=== PATIENT | male | born 1955 | race Caucasian/White ===

== ENCOUNTER → 2024-05-15 | Outpatient (CLI) | payer MEDICARE, SELFPAY ==
[2024-05-15 15:31] LABS: PSA,Total - Annual Screen 0.46 ng/mL (0.00-4.00)
== END | disposition home or self-care (01) ==
LOC: BFHLAB 11:34
PROVIDERS: PCP Family Medicine; Referring Provider Family Medicine; Visit Provider Family Medicine
DX: Z12.5 Encounter for screening for malignant neoplasm of prostate (principal)
CPT/HCPCS: 36415; 84153; G0103

== ENCOUNTER 2025-04-28 08:29 | Emergency (ER) | payer MEDICARE, OTHER, SELFPAY ==
[2025-04-28 08:30] VITALS: BP 177/89; PULSE 69; RESP 16; TEMP 36.1; O2SAT 100; BMI 32.5
--- NOTE | 2025-04-28 08:57 | ED.VIS.LOWEX ---
HPI History of Present Illness Chief Complaint: Lower Extremity Injury Informant: patient and spouse/S.O. Narrative Narrative: 69-year-old male presenting to the emergency room with pain swelling and redness of the right foot. Patient states he has a history of gout but typically in his toes. On he began to have pain with the ball of his right foot and noticed some swelling and Tuesday over the dorsum of the foot. He states that it felt warm had some mild redness. On Tuesday evening he began to take Aleve and he notes the swelling and redness is better. The skin sensitivity is also improved. He has a history of having had a TAVR and is on Eliquis 5 mg twice daily. His had concerns about DVT. He denies any calf pain or leg swelling. He denies any fever. He states that he has been diligent with his Eliquis twice daily not missing doses. He does see a risk management specialist Dr. Lemus. He has utilized Medrol in the past with good relief of his gout symptoms. He typically gets gout about twice a year. [facility] Medical History (Updated 04/28/25 @ 08:[address] Jeff Mcnally DO) Hypertension Anticoagulated Home Medications ?Medication ?Instructions ?Recorded ?Last Taken ?Type methylprednisolone 4 mg tablets in See Rx Instructions PO .COMPLEX 04/28/25 Unknown Rx a dose pack (Medrol (Chong)) #21 tabs Allergy/AdvReac Type Severity Reaction Status Date / Time Penicillins (PCN) Allergy Intermediate Rash Verified 04/28/25 08:30 Sulfa (Sulfonamide Allergy Mild Nausea Verified 04/28/25 08:30 Antibiotics) Surgical History (Updated 04/28/25 @ 08:[address] Jeff Mcnally DO) S/P TAVR (transcatheter aortic valve replacement) ROS ROS ED Constitutional Constitutional ED: Denies chills or weight loss Eyes Eyes: Denies change in vision or diplopia ENT ENT ED: Denies ear pain, rhinorrhea or sore throat Cardiovascular Cardiovascular: Denies chest pain, orthopnea, palpitations or racing heartbeat Respiratory/Chest Respiratory/Chest: Denies cough, dyspnea or orthopnea Gastrointestinal Gastrointestinal: Denies abdominal pain, diarrhea, nausea or vomiting Genitourinary Genitourinary ED: Denies dysuria, hematuria or urinary frequency Musculoskeletal Musculoskeletal: Reports other Details: See history of present illness ; Denies arthralgias or myalgias Integumentary Denies abscess or rash Neurologic Neurologic: Denies headache(s) or weakness Psychiatric Psychiatric: Denies anxiety, depression, suicidal ideation or suicidal thoughts Endocrine Endocrinology: Denies polydipsia, polyphagia or polyuria Allergic/Immunologic Allergic/Immunologic ED: Denies mouth swelling, tongue swelling or urticaria EXAM Physical Exam Const Vital Signs: 04/28/25 08:30 Temperature 96.9 F L Temperature Source Temporal Pulse Rate 69 Respiratory Rate 16 Blood Pressure 177/89 H Blood Pressure Mean 118 Pulse Ox 100 Oxygen Delivery Method Room Air Positive well nourished and well developed General Appearance ED: well developed and NAD HEENT Reports normocephalic, head/scalp atraumatic and moist mucous membranes Eyes PERRL and EOMs intact bilaterally Neck no lymphadenopathy, supple and no JVD Resp normal respiratory effort and clear to auscultation bilaterally Cardio regular rate, regular rhythm and no murmurs GI normal to inspection, nondistended, normoactive bowel sounds and non-tender Palpation: soft Back/Spine no CVA tenderness and normal ROM Extremity Extremity Narrative: There is some mild swelling, mild warmth, and faint erythema starting at the base of the second/third toe extending laterally into the midfoot. There is no calf tenderness. No significant foot tenderness. There are no distended veins or palpable cords comparing side to side. The ankle is not swollen. Full range of motion. I do not appreciate any breaks in the skin either on the surface of the foot or in the toe webspaces. No lymphangitic streaking General Extremety ED: Negative for edema General Extremity: Negative for edema Neuro oriented x3 and CN's II-XII intact bilaterally Sensorium / Orientation: alert Motor Exam: strength 5/5 throughout Psych mental status grossly normal Mood & Affect: Negative for depressed or tearful Skin no rashes or lesions noted and no wounds MDM MDM MDM Narrative Medical decision making narrative: Differential diagnosis would include but not limited to gout pseudogout cellulitis trauma (fracture sprain) DVT superficial thrombophlebitis Based on the history and physical I think this is most likely gout. I doubt DVT as he has no symptoms at the ankle or above. He is fully anticoagulated on Eliquis. We will do Medrol to see if this fully relieves his symptoms. If he has new or concerning symptoms would have him return to emergency. He may follow-up with Dr. Lemus if needed. Patient and his are comfortable with this plan. History & Record Review Discussion w/independent historian: Patient and Significant other Discharge Plan Triage Chief Complaint: Lower Extremity Injury ED Provider: Jeff Mcnally Dx/Rx/DC Orders Clinical Impression: Gout of right foot, Acute pain of right foot Instructions: ED Gout Prescriptions: New methylprednisolone [Medrol (Chong)] 4 mg tablets,dose pack See Rx Instructions .ROUTE .COMPLEX Qty: 21 0RF Rx Instructions: orally per package directions Primary Care Provider: Ze Beverly Referrals: Ze Beverly DO [Primary Care Provider, Family Practice] Activity Restrictions/Additional Instructions: Follow-up with Dr. Lemus as needed. Return if worsening or concerns Print Language: Bangladeshi Disposition Disposition: Home, Self Care
--- OUTSIDE RECORDS SUMMARY | 2025-04-28 09:05 | XMS RPT_ITS | CCD ---
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 Disc degeneration, lumbar GERD (gastroesophageal reflux disease) Heart murmur 5 years old Herniation of lumbar intervertebral disc with radiculopathy 2019 L5-S1 (right side). Comprehensive pain management. Hyperlipidemia Hypertension 2020 Skin cancer 2016 Social History Tobacco Use Smoking status: Never Smokeless tobacco: Never Substance Use Topics Alcohol use: Yes Alcohol/week: 3.0 standard drinks of alcohol Types: 3 Glasses of wine per week Comment: per week Past Surgical History: Procedure Laterality Date AORTIC VALVE REPLACEMENT 05/10/2022 CARDIAC CATHETERIZATION N/A 05/10/2022 Performed by Guera Gonzalez MD at [facility] OR CARDIAC PROCEDURE Right 08/11/2020 COLONOSCOPY 12/15/2017 CT CORONARY CTA WITH PROV FFR-CT 04/20/2022 CT ANGIOGRAM TAVR 04/20/2022 [facility] [address] IMAGING Family History Problem Relation Name Age of Onset Other (84225) Father Nilesh Rapid HR Diabetes type II Father Nilesh Objective Vitals: 04/11/24 1437 04/11/24 1447 BP: (S) (!) 146/80 128/68 BP Location: Left arm Left arm Patient Position: Sitting Sitting BP Cuff Size: Adult Pulse: 80 Weight: 207 lb (93.9 kg) Height: 5' 8 (1.727 m) Physical Exam Constitutional: General: He is not in acute distress. Appearance: He is not diaphoretic. HENT: Head: Normocephalic. Nose: Nose normal. Mouth/Throat: Mouth: Mucous membranes are moist. Pharynx: No oropharyngeal exudate. Eyes: General: No scleral icterus. Right eye: No discharge. Left eye: No discharge. Neck: Thyroid: No thyromegaly. Vascular: No carotid bruit or JVD. Cardiovascular: Rate and R (more content not included)... Normal [facility] 36on 04-04-2024 36 Spoke with patient and explained it is a doctors hospital doctor. And they can see our system Normal [facility] 36 Name of caller: Venancio Contact phone number: [phone] Relationship to Patient: patient Provider: Dr. Dale Practice: [facility] [place] Chief Complaint/Reason for Call: Patient states that he is scheduled for an annual visit with Dr. Gonzalez on 04/11/24 and he would like to have a copy of all of the testing that has been done from the last three months to a year sent to the doctor's office and also uploaded to his SWEEPiO. Please advise. Best time of day caller can be reached: Any Patient advised that office/PCP has 24-48 business hours to return their call: No Normal [facility] Comprehensive metabolic 1998 panelon 04-08-2023 Albumin [Mass/Vol] 4.5 g/dL 3.5 - 5.0 g/dL [facility] ALP [Catalytic activity/Vol] 72 U/L 38 - 126 U/L [facility] ALT [Catalytic activity/Vol] 26 U/L 0 - 49 U/L [facility] Anion gap [Moles/Vol] 11 mmol/L 3 - 13 mmol/L [facility] AST [Catalytic activity/Vol] 27 U/L 15 - 46 U/L [facility] Bilirubin [Mass/Vol] 1.0 mg/dL 0.2 - 1 .3 mg/dL [facility] Calcium [Mass/Vol] 9.2 mg/dL 8.4 - 10. 4 mg/dL [facility] Chloride [Moles/Vol] 104 mmol/L 98 - 10 7 mmol/L [facility] CO2 [Moles/Vol] 23 mmol/L 22 - 30 mmol/L [facility] Creatinine [Mass/Vol] 0.65 mg/dL Low 0.66 - 1.25 mg/dL [facility] GFR/1.73 sq M.predicted MDRD (S/P/Bld) [Vol rate/Area] - PINF [facility] Comment on above: Calculation based on the Chronic Kidney Disease Epidemiology Collaboration (CKD-EPI) equation refit without adjustment for race Glucose [Mass/Vol] 105 mg/dL High 70 - 100 mg/dL [facility] Potassium [Moles/Vol] 4.3 mmol/L 3.5 - 5.1 mmol/L [facility] Protein [Mass/Vol] 7.4 g/dL 6.3 - 8.2 g/dL [facility] Sodium [Moles/Vol] 137 mmol/L 135 - 145 mmol/L [facility] Urea nitrogen [Mass/Vol] 14 mg/dL 9 - 20 mg/d L [facility] Lipid 1996 panelon 3 Cholesterol [Mass/Vol] 180 mg/dL NINF - 200 mg/dL [facility] Cholesterol in HDL [Mass/Vol] 57 mg/dL 40 - 60 mg/dL [facility] Cholesterol in LDL [Mass/Vol] 109 mg/dL High 0 - <100 [facility] [place] Cholesterol.total/Choles terol in HDL [Mass ratio] 3 {ratio} [facility] Comment on above: Ref Range: < 3 Low Risk for CHD 3-6 Mod Risk for CHD > 6 High Risk for CHD Triglyceride [Mass/Vol] 72 mg/dL NINF - 150 mg/dL [facility] No Panel Informationon 04-08 Interpretation and review of laboratory results Abnormal [facility] US Heart TransthoracicOrdere d By: Elias Balderas on 03-31-2023 AV Area by Peak Velocity 1.6 cm2 [facility] Work Phone: AV Area by VTI 1.7 cm2 [facility] Work Phone: AV AT 87.0 ms [facility] Work Phone: AV Mean Gradient 9 mmHg [facility] Work Phone: AV Mean Velocity 1.4 m/s [facility] Work Phone: [phone] AV Peak Gradient 19 mmHg [facility] Work Phone: [phone] AV Peak Velocity 2.2 m/s [facility] Work Phone: AV Velocity Ratio 0.45 [facility] Work Phone: AV VTI 45.3 cm [facility] Work Phone: CYNTHIA/BSA Peak Velocity 0.8 cm2/m2 [facility] Work Phone: CYNTHIA/BSA VTI 0.8 cm2/m2 [facility] Work Phone: E/E' Lateral 11.67 [facility] Work Phone: E/E' Ratio (Averaged) 11.67 [facility] [place] Work Phone: E/E' Septal 11.67 [facility] Work Phone: EF BP 65 % 55 - 100 % [facility] Work Phone: Est. RA Pressure 3 mmHg [facility] Work Phone: Fractional Shortening 2D 32 % 28 - 44 % [facility] Work Phone: Interpretation and review of laboratory results Abnormal [facility] Work Phone: IVSd 1.4 cm Abnormal 0.6 - 1.0 cm [facility] Work Phone: LA Diameter 3.7 cm [facility] Work Phone: LA Size Index 1.77 cm/m2 [facility] Work Phone: LA Volume 2C 66 mL Abnormal 18 - 58 mL [facility] Work Phone: LA Volume 4C 62 mL Abnormal 18 - 58 mL [facility] Work Phone: LA Volume A/L 69 mL [facility] Work Phone: LA Volume Index 2C 32 mL/m2 16 - 34 mL/m2 [facility] Work Phone: LA Volume Index 4C 30 mL/m2 16 - 34 mL/m2 [facility] Work Phone: LA Volume Index A/L 33 mL/m2 16 - 34 mL/m2 [facility] [place] Work Phone: LV E' Lateral Velocity 6 cm/s [facility] Work Phone: LV E' Septal Velocity 6 cm/s [facility] Work Phone: LV EDV A2C 103 mL [facility] Work Phone: LV EDV A4C 190 mL [facility] Work Phone: LV EDV BP 142 mL 67 - 155 mL [facility] Work Phone: LV EDV Index A2C 49 mL/m2 [facility] Work Phone: LV EDV Index A4C 91 mL/m2 [facility] Work Phone: LV EDV Index BP 68 mL/m2 [facility] Work Phone: LV Ejection Fraction A2C 65 % [facility] Work Phone: LV Ejection Fraction A4C 67 % [facility] Work Phone: LV ESV A2C 37 mL [facility] Work Phone: LV ESV A4C 63 mL [facility] Work Phone: LV ESV BP 50 mL 22 - 58 mL [facility] Work Phone: LV ESV Index A2C 18 mL/m2 [facility] Work Phone: LV ESV Index A4C 30 mL/m2 [facility] Work Phone: LV ESV Index BP 24 mL/m2 [facility] Work Phone: LV Mass 2D 251.4 g Abnormal 88 - 224 g [facility] Work Phone: LV Mass 2D Index 120.3 g/m2 Abnormal 49 - 115 g/m2 [facility] Work Phone: LV RWT Ratio 0.55 [facility] Work Phone: LVIDd 4.7 cm 4.2 - 5.9 cm [facility] Work Phone: LVIDd Index 2.25 cm/m2 [facility] Work Phone: LVIDs 3.2 cm [facility] Work Phone: LVIDs Index 1.53 cm/m2 [facility] Work Phone: LVOT Area 3.5 cm2 [facility] Work Phone: LVOT Cardiac Output 4.5 liter/minute [facility] Work Phone: LVOT Diameter [facility].[address] [facility] Work Phone: LVOT Mean Gradient 2 mmHg [facility] Work Phone: LVOT Peak Gradient 4 mmHg [facility] Work Phone: LVOT Peak Velocity 1.0 m/s [facility] Work Phone: LVOT Stroke Volume Index 37.4 mL/m2 [facility] Work Phone: LVOT SV 78.2 ml [facility] Work Phone: LVOT VTI 22.6 cm [facility] Work Phone: LVOT:AV VTI Index 0.50 [facility] Work Phone: LVPWd 1.3 cm Abnormal 0.6 - 1.0 cm [facility] Work Phone: MV A Velocity 0.74 m/s [facility] Work Phone: MV E Velocity 0.70 m/s [facility] Work Phone: MV E Wave Deceleration Time 334.0 ms [facility] Work Phone: MV E/A 0.95 [facility] Work Phone: RV Free Wall Peak S' 13 cm/s [facility] Work Phone: RVSP 26 mmHg [facility] Work Phone: TAPSE 2.4 cm 1.7 cm [facility] Work Phone: TR Max Velocity 2.40 m/s [facility] Work Phone: TR Peak Gradient 23 mmHg [facility] Work Phone: [facility] Work Phone: Heart Transthoracicon Left Ventricle: Left ventricle size is normal. Mildly increased wall thickness. Normal left ventricular systolic function. EF by 2D Simpsons Biplane is 65%. Normal wall motion. Right Ventricle: Not well visualized. Right ventricle size is normal. Normal systolic function. Aortic Valve: Not well visualized. Swann Tiffanie 3 Ultra bioprosthetic aortic valve with a size of 26 mm. AV mean gradient is 9 mmHg. No cusp calcification. No regurgitation. No paravalvular regurgitation. No stenosis. Normal prosthetic gradient. AV mean gradient is 9 mmHg. AV peak velocity is 2.2 m/s. AV AT is 87.0 ms. LVOT:AV VTI Index is 0.50. AV area by continuity VTI is 1.7 cm2. Mitral Valve: Trace regurgitation. Tricuspid Valve: Normal RVSP. Est RA pressure is 3 mmHg. RVSP is 26 mmHg. Left Ventricle Left ventricle size is normal. Mildly increased wall thickness. Normal left ventricular systolic function. EF by 2D Simpsons Biplane is 65%. Normal wall motion. Normal diastolic function. Right Ventricle Not well visualized. Right ventricle size is normal. Normal systolic function. Left Atrium Left atrium size is normal. Right Atrium Right atrium size is normal. IVC/SVC IVC diameter is normal and decreases greater than 50% during inspiration; therefore the estimated right atrial pressure is normal (~3 mmHg). Mitral Valve Valve structure is normal. Trace regurgitation. No stenosis noted. Tricuspid Valve Valve structure is normal. Trace regurgitation. Normal RVSP. Est RA pressure is 3 mmHg. RVSP is 26 mmHg. Aortic Valve Not well visualized. Swann Tiffanie 3 Ultra bioprosthetic aortic valve with a size of 26 mm. AV mean gradient is 9 mmHg. No cusp calcification. No regurgitation. No paravalvular regurgitation. No stenosis. Normal prosthetic gradient. AV mean gradient is 9 mmHg. AV peak velocity is 2.2 m/s. AV AT is 87.0 ms. LVOT:AV VTI Index is 0.50. AV area by continuity VTI is 1.7 cm2. Pulmonic Valve Valve structure is normal. No regurgitation. Ascending Aorta Not assessed due to poor image quality. Normal sized sinuses of Valsalva. Pericardium No pericardial effusion. Septum No interatrial shunt visualized on color Doppler. Study Details Image quality: adequate. Heart rate: 61 bpm. Blood pressure: 141/74 mmHg. Cardiac history: prosthetic valve. No contrast was given. CV CPACS Sleep study with pap titrati onon 02-15-2023 [facility] No Panel Informationon 10-05 [facility] CNOVon 07-15-2022 CNOV Office Visit ([email or web address]) VENANCIO GONSALVES ([id number]) 1955 M Date Time Provider Department 07/15/22 10:15 AM LAURI LEMUS [id number] During your visit today, we recorded the following information about you: Respiration Weight Height 18/minute 89.8 kg 1.727 m Felicia Johnson MA 07/16/2022 7:24 AM Signed REVIEW OF SYSTEMS: GENERAL: Well developed, well nourished. No acute distress PAIN: Pain 09/06 CARDIOVASCULAR: Negative for chest pain, leg swelling and palpations. MSK: Negative for joint swelling SKIN: Negative for lesions, rash, itching, metal sensitivity NEURO: Negative for seizure, trauma, numbness/tingling of extremities. ENDOCRINE: Negative for diabetic associated symptoms HEMATOLOGY: Negative for excessive bleeding, clots, bleeding disorders. YENI Medley DPM 07/16/2022 7:24 AM Signed Chief Complaint: b/l toe pain HPI: This 67 year old male with PMH indicated below presents for follow up of b/l toe pain. Patient was last seen with possible acute gout flare up of left big toe and third toe. Since last visit, he has completed the prednisone course prescribed by his PCP. He was applying voltaren gel as recommended but has discontinued its use as he did not notice a difference with its use. He is now complaining of a flare up of his right 2nd toe. He describes these flare ups and being painful with associated swelling and redness without inciting event or injury. Has noticed the swelling/redness worsen with hiking/walking. Relates pain to bilateral toes has improved, but still complains of soreness localized to the 2nd toe. Denies having known personal hx of gout but father had gout. Denies other pedal complaints. PCP: Azael Sanders MD: PAST MEDICAL HISTORY Diagnosis Date Aortic stenosis Bilateral foot pain left great toe, right 2nd toe Disc degeneration, lumbar Diverticulosis GERD (gastroesophageal reflux disease) Skin cancer 2017 : Current Outpatient Medications Medication Sig apixaban (ELIQUIS) 5 mg tab(s) methylPREDNISolone (MEDROL DOSE-PACK) 4 mg Dose-Pack Take by mouth. As Instructed per package amLODIPine (NORVASC) 5 mg tablet metoprolol succinate ER (TOPROL XL) 50 mg [address] (PROTONIX) 40 mg tablet TAKE 1 TABLET BY MOUTH TWICE A DAY BEFORE MEALS atorvastatin (LIPITOR) 40 mg tablet Take 40 mg by mouth once daily. No current facility-administere d medications for this visit. : ALLERGIES Allergen Reactions Sulfa (Sulfonamide * GI Upset Nausea. Penicillins Rash : PAST SURGICAL HISTORY Procedure Laterality Date COLONOSCOPY 12/15/2017 Diverticulosis EGD 09/17/2020 Fundic gland polyps, otherwise normal FAMILY HISTORY Problem Relation Age of Onset Colon Cancer No Family History : Social History Tobacco Use Smoking status: Never Smokeless tobacco: Never Vaping Use Vaping Use: Never used Substance Use Topics Alcohol use: Yes Comment: occ. Drug use: No REVIEW OF SYSTEMS See tech note MSK: + as noted in HPI. Physical Examination: On General Observation: Patient is a pleasant, cooperative, well developed 67 year old adult male. The patient is alert and oriented to time, place and person. Patient has normal affect and mood. There were no vitals taken for this visit. Examination of both lower extremities: Satisfactory alignment. No gross deformity is noted. Normal alignment in stance. Peripheral pulses are palpable. Capillary refill time is less than 3 seconds to all toes. The skin is warm and dry. No rashes or lesions. There are no open wounds or signs of infection, There is no lymphadenopathy noted. Peripheral sensation and reflexes are intact, bilateral and symmetrical. Motor strength is 5/5 of all groups. Normal range of motion, stability and coordination of both lower extremities. + Edema and mild erythema to right 2nd distal digit with associated mallet toe deformity. Mild edema and resolved erythema to the left 3rd distal digit with associated mallet toe deformity. + Pain to palpation of distal right 2nd toe and with DIPJ ROM. Radiographs: 3 views AP, MO, Lat Right Foot (06/10/22). Radiographic evaluation: No obvious fracture or dislocation is noted. No acute osseous changes. No osteolytic or osteoblastic lesions appreciated. No soft tissue gas. No discernible mass noted. Joint spaces are well maintained. Bone density appear typical for age of patient. 3 views AP, MO, Lat Left Foot (06/10/22). Radiographic evaluation: Degenerative changes to the 3rd DIPJ with christiano-articular spurring of the base of the distal phalanx relative to the middle phalanx. No obvious fracture or dislocation is noted. No acute osseous changes. No osteolytic or osteoblastic lesions appreciated. No soft tissue gas. No discernible mass noted. Bone density appear typical for age of patient. A (more content not included)... Normal [facility] US Heart TransthoracicOrdere d By: Sabrina Nichole on 06-17-2022 Aortic Arch 3.1 cm [facility] Work Phone: Aortic Sinus Valsalva 3.0 cm [facility] Work Phone: Aortic Sinus Valsalva Index 1.46 cm/m2 [facility] Work Phone: AR Max Velocity PISA 2.5 m/s [facility] Work Phone: AR PHT 761.9 ms [facility] Work Phone: AV Area by Peak Velocity 1.0 cm2 [facility] Work Phone: AV Area by VTI 1.[address] [facility] Work Phone: AV AT 64.0 ms [facility] Work Phone: AV Mean Gradient 12 mmHg [facility] Work Phone: AV Mean Velocity 2.3 m/s [facility] Work Phone: AV Peak Gradient 25 mmHg [facility] Work Phone: AV Peak Velocity 2.5 m/s [facility] Work Phone: AV Velocity Ratio 0.40 [facility] Work Phone: AV VTI 50.0 cm [facility] Work Phone: CYNTHIA/BSA Peak Velocity 0.5 cm2/m2 [facility] Work Phone: CYNTHIA/BSA VTI 0.9 cm2/m2 [facility] Work Phone: E/E' Lateral 10.75 [facility] Work Phone: E/E' Ratio (Averaged) 12.54 [facility] Work Phone: E/E' Septal 14.33 [facility] Work Phone: EF BP 70 % 55 - 100 % [facility] Work Phone: Fractional Shortening 2D 30 % 28 - 44 % [facility] Work Phone: Interpretation and review of laboratory results Abnormal [facility] Work Phone: IVC Diameter 2.0 cm [facility] Work Phone: IVSd 1.5 cm Abnormal 0.6 - 1.0 cm [facility] Work Phone: LA Diameter 3.9 cm [facility] Work Phone: LA Size Index 1.89 cm/m2 [facility] [employer] [employer] Work Phone: LA Volume 2C 71 mL Abnormal 18 - 58 mL [facility] Work Phone: LA Volume 4C 82 mL Abnormal 18 - 58 mL [facility] Work Phone: LA Volume A/L 83 mL [facility] [employer] Work Phone: LA Volume Index 2C 34 mL/m2 16 - 34 mL/m2 [facility] Work Phone: LA Volume Index 4C 40 mL/m2 Abnormal 16 - 34 mL/m2 [facility] Work Phone: LA Volume Index A/L 40 mL/m2 16 - 34 mL/m2 [facility] Work Phone: LV E' Lateral Velocity 8 cm/s [facility] Work Phone: LV E' Septal Velocity 6 cm/s [facility] Work Phone: LV EDV A2C 67 mL [facility] Work Phone: LV EDV A4C 100 mL [facility] Work Phone: LV EDV BP 82 mL 67 - 155 mL [facility] Work Phone: LV EDV Index A2C 33 mL/m2 [facility] Work Phone: LV EDV Index A4C 49 mL/m2 [facility] Work Phone: LV EDV Index BP 40 mL/m2 [facility] Work Phone: LV Ejection Fraction A2C 72 % [facility] Work Phone: LV Ejection Fraction A4C 69 % [facility] Work Phone: LV ESV A2C 19 mL [facility] Work Phone: LV ESV A4C 31 mL [facility] Work Phone: LV ESV BP 25 mL 22 - 58 mL [facility] Work Phone: LV ESV Index A2C 9 mL/m2 [facility] Work Phone: [phone] LV ESV Index A4C 15 mL/m2 [facility] Work Phone: LV ESV Index BP 12 mL/m2 [facility] Work Phone: LV Mass 2D 240.3 g Abnormal 88 - 224 g [facility] Work Phone: LV Mass 2D Index 116.6 g/m2 Abnormal 49 - 115 g/m2 [facility] Work Phone: LV RWT Ratio 0.59 [facility] Work Phone: LVIDd 4.4 cm 4.2 - 5.9 cm [facility] Work Phone: LVIDd Index 2.14 cm/m2 [facility] Work Phone: [phone] LVIDs 3.1 cm [facility] Work Phone: LVIDs Index 1.50 cm/m2 [facility] Work Phone: LVOT Area 3.8 cm2 [facility] Work Phone: LVOT Cardiac Output 4.1 liter/minute [facility] Work Phone: LVOT Diameter 2.2 cm [facility] Work Phone: LVOT Mean Gradient 3 mmHg [facility] Work Phone: LVOT Peak Gradient 4 mmHg [facility] Work Phone: LVOT Peak Velocity 1.0 m/s [facility] Work Phone: LVOT Stroke Volume Index 45.6 mL/m2 [facility] Work Phone: [phone] LVOT SV 93.8 ml [facility] Work Phone: LVOT VTI 24.7 cm [facility] Work Phone: LVOT:AV VTI Index 0.49 [facility] Work Phone: LVPWd 1.3 cm Abnormal 0.6 - 1.0 cm [facility] Work Phone: MV A Velocity 0.93 m/s [facility] [place] [employer] Work Phone: MV E Velocity 0.86 m/s [facility] [place] [employer] Work Phone: MV E Wave Deceleration Time 323.6 ms [facility] Work Phone: [phone] MV E/A 0.92 [facility] Work Phone: Pulmonary Artery EDP [address] [facility] Work Phone: RV Basal Dimension 2.8 cm [facility] Work Phone: RV Free Wall Peak S' 11 cm/s [facility] Work Phone: RV Mid Dimension 2.4 cm [facility] Work Phone: TAPSE 1.9 cm 1.7 cm [facility] Work Phone: TR Max Velocity 2.55 m/s [facility] Work Phone: TR Peak Gradient 26 mmHg [facility] Work Phone: [facility] Work Phone: Heart Transthoracicon Left Ventricle: Left ventricle size is normal. Moderately increased wall thickness. Normal left ventricular systolic function. Normal wall motion. Normal diastolic function. Right Ventricle: Right ventricle size is normal. Normal systolic function. Aortic Valve: Swann Tiffanie 3 bioprosthetic aortic valve with a size of 26 mm. AV mean gradient is 12 mmHg. Trace paravalvular regurgitation. No stenosis. AV mean gradient is 12 mmHg. AV peak gradient is 25 mmHg. AV peak velocity is 2.5 m/s. LVOT:AV VTI Index is 0.49. AV area by continuity VTI is 1.8 cm2. Tricuspid Valve: Valve structure is normal. Mildly thickened leaflets. Left Ventricle Left ventricle size is normal. Moderately increased wall thickness. Normal left ventricular systolic function. Normal wall motion. Normal diastolic function. Right Ventricle Right ventricle size is normal. Normal systolic function. Left Atrium Left atrium size is mildly increased (LA volume index 35-41 mL/m2). Right Atrium Right atrium size is normal. IVC/SVC IVC diameter is normal and decreases greater than 50% during inspiration; therefore the estimated right atrial pressure is normal (~3 mmHg). Mitral Valve Valve structure is normal. No regurgitation. No stenosis noted. Tricuspid Valve Valve structure is normal. Mildly thickened leaflets. Trace regurgitation. Aortic Valve Swann Tiffanie 3 bioprosthetic aortic valve with a size of 26 mm. AV mean gradient is 12 mmHg. Trace paravalvular regurgitation. No stenosis. AV mean gradient is 12 mmHg. AV peak gradient is 25 mmHg. AV peak velocity is 2.5 m/s. LVOT:AV VTI Index is 0.49. AV area by continuity VTI is 1.8 cm2. Pulmonic Valve Valve structure is normal. Mild (1+) regurgitation. Ascending Aorta Not well visualized. Normal sized sinuses of Valsalva and ascending aorta. Pericardium No pericardial effusion. Septum No interatrial shunt visualized on color Doppler. Hypermobile interatrial septum. Study Details Image quality: adequate. Heart rate: 61 bpm. Blood pressure: 144/88 mmHg. No contrast was given. Comparison Study There is a prior study available for comparison. Prior study date: 05/10/2022. EF 63%. History of TAVR, Vinnie Tiffanie S3 26 mm 05-10-22. CV CPACS CNOVon 06-10-2022 CNOV Office Visit (AGHWW1) VENANCIO GONSALVES ([id number]) 1955 M Date Time Provider Department 06/10/22 9:00 AM [facility] During your visit today, we recorded the following information about you: Respiration Weight Height 20/minute 89.8 kg 1.727 m Lauri Lemus DPM 06/11/2022 11:16 AM Signed Chief Complaint: b/l toe pain HPI: This 66 year old male with PMH indicated below presents complaining of b/l toe pain. Patient has had recurrent flare up of left third toe pain over the past few years, most recently 3 weeks ago. He describes these flare ups and being severely painful with associated swelling and redness without inciting event or injury. Patient states he has had one flare up occurring in his left 4th toe and great toe in the past. His PCP prescribed him a medrol dose shira which has since resolved most of his left 3rd toe pain and only has mild pain and swelling remaining. Denies having known personal hx of gout but father had gout. Denies other pedal complaints. PCP: Azael Sanders MD: PAST MEDICAL HISTORY Diagnosis Date Aortic stenosis Bilateral foot pain left great toe, right 2nd toe Disc degeneration, lumbar Diverticulosis GERD (gastroesophageal reflux disease) Skin cancer 2017 : Current Outpatient Medications Medication Sig apixaban (ELIQUIS) 5 mg tab(s) methylPREDNISolone (MEDROL DOSE-PACK) 4 mg Dose-Pack Take by mouth. As Instructed per package amLODIPine (NORVASC) [address] (PROTONIX) 40 mg tablet TAKE 1 TABLET BY MOUTH TWICE A DAY BEFORE MEALS atorvastatin (LIPITOR) 40 mg tablet Take 40 mg by mouth once daily. metoprolol succinate ER (TOPROL XL) 50 mg 24 hr tablet No current facility-administere d medications for this visit. : ALLERGIES Allergen Reactions Sulfa (Sulfonamide * GI Upset Nausea. Penicillins Rash : PAST SURGICAL HISTORY Procedure Laterality Date COLONOSCOPY 12/15/2017 Diverticulosis EGD 09/17/2020 Fundic gland polyps, otherwise normal FAMILY HISTORY Problem Relation Age of Onset Colon Cancer No Family History : Social History Tobacco Use Smoking status: Never Smokeless tobacco: Never Vaping Use Vaping Use: Never used Substance Use Topics Alcohol use: Yes Comment: occ. Drug use: No REVIEW OF SYSTEMS See tech note MSK: + as noted in HPI. Physical Examination: On General Observation: Patient is a pleasant, cooperative, well developed 66 year old adult male. The patient is alert and oriented to time, place and person. Patient has normal affect and mood. Resp 20 Ht 172.7 cm (5' 8) Wt 89.8 kg (198 lb) BMI 30.11 kg/m? Examination of both lower extremities: Satisfactory alignment. No gross deformity is noted. Normal alignment in stance. Peripheral pulses are palpable. Capillary refill time is less than 3 seconds to all toes. The skin is warm and dry. No rashes or lesions. There are no open wounds or signs of infection, There is no lymphadenopathy noted. Peripheral sensation and reflexes are intact, bilateral and symmetrical. Motor strength is 5/5 of all groups. Normal range of motion, stability and coordination of both lower extremities. + Edema and mild erythema to right 3rd distal digit with associated mallet toe deformity + Pain to palpation of distal right 3rd toe and with DIPJ ROM. Radiographs: 3 views AP, MO, Lat Right Foot were taken and evaluated (06/10/22). Radiographic evaluation: No obvious fracture or dislocation is noted. No acute osseous changes. No osteolytic or osteoblastic lesions appreciated. No soft tissue gas. No discernible mass noted. Joint spaces are well maintained. Bone density appear typical for age of patient. 3 views AP, MO, Lat Left Foot were taken and evaluated (06/10/22). Radiographic evaluation: Degenerative changes to the 3rd DIPJ with christiano-articular spurring of the base of the distal phalanx relative to the middle phalanx. No obvious fracture or dislocation is noted. No acute osseous changes. No osteolytic or osteoblastic lesions appreciated. No soft tissue gas. No discernible mass noted. Bone density appear typical for age of patient. 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 The patient was educated on clinical and radiographic findings, diagnosis and treatment plans. Patient state that he understands all that has been explained and all questions were answered to his apparent satisfaction. - Etiology and treatment options were discussed with the patient. - Complete prednisone taper as prescribed by PCP. - Rx topical voltaren (unable to take Mobic d/t being on Eliquis) - Briefly discussed mallet toe surgical correction. Will re-evaluate at next follow up. Annalise (more content not included)... Normal [facility] Miryam 06-04-2022 [facility] Telephone (AGCARDPOB) VENANCIO GONSALVES ([id number]) 1955 M Date Time Provider Department 06/04/22 AG CARD AGCARDPOB During your visit today, we recorded the following information about you: Nathalie Mtz 06/04/2022 11:49 AM Signed I called PT to schedule New Pt appointment was referral from his PCP Doctor and I spoke with him he stated wanting to wait until he talks with his PCP doctor again. Nathalie Mtz Allergies As of Date: 06/04/2022 Noted Allergy Reaction SULFA (SULFONAMIDE ANTIBIOTICS) 12/09/2017 8 - GI Upset Comments: Nausea. PENICILLINS 12/15/2017 2 - Rash Date Reviewed: 04/14/2021 Reviewed by: Anat Jean PA-C - Fully Assessed Reason for Visit: Appointment [[id number]] Prescriptions as of 06/04/2022 - amLODIPine (NORVASC) 5 mg tablet - metoprolol succinate ER (TOPROL XL) 50 mg 24 hr tablet - pantoprazole DR (PROTONIX) 40 mg tablet TAKE 1 TABLET BY MOUTH TWICE A DAY BEFORE MEALS - atorvastatin (LIPITOR) 40 mg tablet Take 40 mg by mouth once daily. Problem List As Of Date: 06/04/2022 (None) Encounter Status:Closed by NATHALIE MTZ on 06/04/22 Normal [facility] CBC panel Auto (Bld)on 04-15 Erythrocyte distribution width (RBC) [Ratio] 12.3 % 11.5 - 14.5 % [facility] Hematocrit (Bld) [Volume fraction] 45.8 % 40.0 - 52.0 % [facility] Hemoglobin (Bld) [Mass/Vol] 15.9 g/dL 13.0 - 18.0 g/dL [facility] Interpretation and review of laboratory results Normal [facility] MCH (RBC) [Entitic mass] 31.1 pg 26. 0 - 34.0 pg [facility] MCHC (RBC) [Mass/Vol] 34.7 % 32.0 - 36.0 % [facility] MCV (RBC) [Entitic vol] 89.5 fL 80.0 - 98.0 fL [facility] Platelet mean volume (Bld) [Entitic vol] 9.5 fL 7.4 - 12.4 fL [facility] Comment on above: MPV is a calculated measurement using platelet volume ratio Platelets (Bld) [#/Vol] 203 10*3/uL 140 - 440 10*3/uL [facility] RBC (Bld) [#/Vol] 5.12 10*6/uL 4.40 - 5.9 0 10*6/uL [facility] WBC (Bld) [#/Vol] 5.2 10*3/uL 3.6 - 10.7 10*3/uL [facility] Comprehensive metabolic 1998 panelon 04-15-2022 Albumin [Mass/Vol] 4.7 g/dL 3.5 - 5.0 g/dL [facility] ALP [Catalytic activity/Vol] 64 U/L 38 - 126 U/L [facility] ALT [Catalytic activity/Vol] 21 U/L 0 - 49 U/L [facility] Anion gap [Moles/Vol] 5 mmol/L 3 - 13 mmol/L [facility] AST [Catalytic activity/Vol] 27 U/L 15 - 46 U/L [facility] Bilirubin [Mass/Vol] 1.1 mg/dL 0.2 - 1 .3 mg/dL [facility] Calcium [Mass/Vol] 9.3 mg/dL 8.4 - 10. 4 mg/dL [facility] Chloride [Moles/Vol] 105 mmol/L 98 - 10 7 mmol/L [facility] CO2 [Moles/Vol] 26 mmol/L 22 - 30 mmol/L [facility] Creatinine [Mass/Vol] 0.81 mg/dL 0.66 - 1.25 mg/dL [facility] GFR/1.73 sq M.predicted MDRD (S/P/Bld) [Vol rate/Area] - PINF [facility] Comment on above: Calculation based on the Chronic Kidney Disease Epidemiology Collaboration (CKD-EPI) equation refit without adjustment for race Glucose [Mass/Vol] 98 mg/dL 70 - 100 mg/dL [facility] Interpretation and review of laboratory results Normal [facility] Potassium [Moles/Vol] 4.7 mmol/L 3.5 - 5.1 mmol/L [facility] Protein [Mass/Vol] 7.8 g/dL 6.3 - 8.2 g/dL [facility] Sodium [Moles/Vol] 136 mmol/L 135 - 145 mmol/L [facility] Urea nitrogen [Mass/Vol] 16 mg/dL 9 - 20 mg/d L [facility] ECHO Complete 2D W Doppler W Coloron 03-10-2022 TRANSTHORACIC ECHOCARDIOGRAM PATIENT: Venancio Gonsalves STUDY DATE: 03/10/2022 : 1955 AGE: 66 HT/WT: 175.3 cm (69 92.5 kg in) (203.6 lb) GENDER: M BP: LOCATION: [facility] [address] STATUS: *ORDERING PHYSICIAN: * Jaky Andujar *READING PHYSICIAN: * Elias Balderas, *PILL MAKER: * Sandie Bishop MD INDICATIONS: . CONCLUSIONS SUMMARY: 1. Aortic valve: Probably trileaflet; moderately thickened, moderately calcified leaflets. There is severe stenosis. There is moderate, 2+ regurgitation. The peak systolic velocity is 4.2 m/sec. The mean systolic gradient is 46 mm Hg. The valve area by the velocity-time integral method is 0.6 cm^2. 2. Left ventricle: Average LV global longitudinal strain is -22. This is normal. Systolic function is normal by the biplane method of disks. The estimated ejection fraction is 62%. There are no regional wall motion abnormalities. Doppler parameters are consistent with abnormal left ventricular relaxation (grade 1 diastolic dysfunction). The LVOT stroke index is 32 ml/m^2. 3. Left atrium: The atrium is mildly dilated. 4. Right atrium: Central venous pressure (est): 3 mm Hg. 5. Aortic root: The aortic root is normal in size. 6. Pulmonary arteries: Systolic pressure can not be accurately estimated. 7. Compared to report of 07/2020 there is progression of AV stenosis to severe. STUDY DATA: Complete transthoracic echocardiogram. Procedure: Image quality was fair. The study was technically limited due to poor acoustic window availability. M-mode, complete 2D, 3D, complete spectral Doppler, and color flow Doppler images were acquired and archived for permanent storage and are available for subsequent review. Study status: Routine. Patient status: Outpatient. FINDINGS LEFT VENTRICLE: Average LV global longitudinal strain is -22. This is normal. The cavity size is normal. Wall thickness is normal. Systolic function is normal by the biplane method of disks. The estimated ejection fraction is 62%. There are no regional wall motion abnormalities. There is an increased relative contribution of atrial contraction to ventricular filling. The tissue Doppler parameters are abnormal. Doppler parameters are consistent with abnormal left ventricular relaxation (grade 1 diastolic dysfunction). RIGHT VENTRICLE: The cavity size is normal. Systolic function is normal. VENTRICULAR SEPTUM: There is no evidence of a ventricular septal defect. LEFT ATRIUM: The atrium is mildly dilated. RIGHT ATRIUM: The atrium is normal in size. ATRIAL SEPTUM: Color Doppler shows no shunt. MITRAL VALVE: Mildly thickened leaflets. Doppler: There is no regurgitation. AORTIC VALVE: Probably trileaflet; moderately thickened, moderately calcified leaflets. Doppler: There is severe stenosis. There is moderate, 2+ regurgitation. Dimensionless index: 0.2. The valve area by the velocity-time integral method is 0.6 cm^2. The valve area index by the velocity-time integral method is 0.3 cm^2/m^2. The mean systolic gradient is 46 mm Hg. The peak systolic gradient is 70 mm Hg. The peak systolic velocity is 4.2 m/sec. TRICUSPID VALVE: Structurally normal valve. Normal thickness leaflets. Doppler: There is no significant regurgitation. PULMONIC VALVE: Structurally normal valve. Doppler: There is trivial, less than 1+ regurgitation. AORTA: The aorta is normal. Aortic root: The aortic root is normal in size. Ascending aorta: The ascending aorta is normal in size. PULMONARY ARTERY: Systolic pressure can not be accurately estimated. Main pulmonary artery: Normal. PERICARDIUM: There is no pericardial effusion. SYSTEMIC VEINS: Inferior vena cava: The vessel is normal. The IVC collapses by greater than 50% with inspiration. Measurements Value 08/08/2020 Reference Aortic root ID 2.9 cm <4.2 Aortic root ID, STJ, ED (L) 2.2 cm 2.3 - 3.5 Aortic root ID/bsa, STJ, (L) 1.0 cm/m^2 1.1 - 1.9 ED Value 08/08/2020 Reference Ascending aorta ID 2.9 cm 2.2 - 3.8 Ascending aorta ID/bsa, 1.4 cm/m^2 1.1 - 1.9 A-P Ascending aorta ID, A-P, 2.9 cm (more content not included)... [facility] Elias Balderas MD - 03/10/2022 TRANSTHORACIC ECHOCARDIOGRAM PATIENT: Venancio Gonsalves STUDY DATE: 03/10/2022 : 1955 AGE: 66 HT/WT: 175.3 cm (69 92.5 kg in) (203.6 lb) GENDER: M BP: LOCATION: [place] [address] [address] STATUS: *ORDERING PHYSICIAN: * Jaky Andujar *READING PHYSICIAN: * Elias Balderas, *PILL MAKER: * Sandie Bishop MD INDICATIONS: . CONCLUSIONS SUMMARY: 1. Aortic valve: Probably trileaflet; moderately thickened, moderately calcified leaflets. There is severe stenosis. There is moderate, 2+ regurgitation. The peak systolic velocity is 4.2 m/sec. The mean systolic gradient is 46 mm Hg. The valve area by the velocity-time integral method is 0.6 cm^2. 2. Left ventricle: Average LV global longitudinal strain is -22. This is normal. Systolic function is normal by the biplane method of disks. The estimated ejection fraction is 62%. There are no regional wall motion abnormalities. Doppler parameters are consistent with abnormal left ventricular relaxation (grade 1 diastolic dysfunction). The LVOT stroke index is 32 ml/m^2. 3. Left atrium: The atrium is mildly dilated. 4. Right atrium: Central venous pressure (est): 3 mm Hg. 5. Aortic root: The aortic root is normal in size. 6. Pulmonary arteries: Systolic pressure can not be accurately estimated. 7. Compared to report of 07/2020 there is progression of AV stenosis to severe. STUDY DATA: Complete transthoracic echocardiogram. Procedure: Image quality was fair. The study was technically limited due to poor acoustic window availability. M-mode, complete 2D, 3D, complete spectral Doppler, and color flow Doppler images were acquired and archived for permanent storage and are available for subsequent review. Study status: Routine. Patient status: Outpatient. FINDINGS LEFT VENTRICLE: Average LV global longitudinal strain is -22. This is normal. The cavity size is normal. Wall thickness is normal. Systolic function is normal by the biplane method of disks. The estimated ejection fraction is 62%. There are no regional wall motion abnormalities. There is an increased relative contribution of atrial contraction to ventricular filling. The tissue Doppler parameters are abnormal. Doppler parameters are consistent with abnormal left ventricular relaxation (grade 1 diastolic dysfunction). RIGHT VENTRICLE: The cavity size is normal. Systolic function is normal. VENTRICULAR SEPTUM: There is no evidence of a ventricular septal defect. LEFT ATRIUM: The atrium is mildly dilated. RIGHT ATRIUM: The atrium is normal in size. ATRIAL SEPTUM: Color Doppler shows no shunt. MITRAL VALVE: Mildly thickened leaflets. Doppler: There is no regurgitation. AORTIC VALVE: Probably trileaflet; moderately thickened, moderately calcified leaflets. Doppler: There is severe stenosis. There is moderate, 2+ regurgitation. Dimensionless index: 0.2. The valve area by the velocity-time integral method is 0.6 cm^2. The valve area index by the velocity-time integral method is 0.3 cm^2/m^2. The mean systolic gradient is 46 mm Hg. The peak systolic gradient is 70 mm Hg. The peak systolic velocity is 4.2 m/sec. TRICUSPID VALVE: Structurally normal valve. Normal thickness leaflets. Doppler: There is no significant regurgitation. PULMONIC VALVE: Structurally normal valve. Doppler: There is trivial, less than 1+ regurgitation. AORTA: The aorta is normal. Aortic root: The aortic root is normal in size. Ascending aorta: The ascending aorta is normal in size. PULMONARY ARTERY: Systolic pressure can not be accurately estimated. Main pulmonary artery: Normal. PERICARDIUM: There is no pericardial effusion. SYSTEMIC VEINS: Inferior vena cava: The vessel is normal. The IVC collapses by greater than 50% with inspiration. Measurements Value 08/08/2020 Reference Aortic root ID 2.9 cm <4.2 Aortic root ID, STJ, ED (L) 2.2 cm 2.3 - 3.5 Aortic root ID/bsa, STJ, (L) 1.0 cm/m^2 1.1 - 1.9 ED Value 08/08/2020 Reference Ascending aorta ID 2.9 cm 2.2 - 3.8 Ascending aorta ID/bsa, 1.4 cm/m^2 1.1 - 1.9 A-P Ascending aorta ID, A-P, 2.9 cm S Ascending aorta ID/bsa, 1.4 cm/m^2 A-P, S Left ventricle Value 08/08/2020 Reference GLS, 2D 21.90 % 18.05 LV ID, ED 4.9 cm 5.2 4.2 - 5.8 LV ID, ES 3.4 cm 3.2 2.5 - 4 (more content not included)... [employer] Work Phone: ECHO Complete 2D W Doppler W ColorOrdered By: Elias Balderas on 03-10-2022 [employer] Work Phone: Echo Complete w/wo Contrasto n 03-10-2022 Echo Complete w/wo Contrast Patient Name: VENANCIO GONSALVES Ultrasound ACCESSION EXAM DATE/TIME PROCEDURE ORDERING PROVIDER [id number] 03/10/2022 14:45 EDT Echo Complete w/wo JACQUES, MSN, FORENSICS ANALYST, Trev Gerber Reason For Exam (Echo Complete w/wo Contrast) AORTIC VALVE DISEASE Report TRANSTHORACIC ECHOCARDIOGRAM PATIENT: Venancio Gonsalves STUDY DATE: 03/10/2022 : 1955 AGE: 66 HT/WT: 175.3 cm (69 92.5 kg in) (203.6 lb) GENDER: M BP: LOCATION: [place] [address] [address] STATUS: *ORDERING PHYSICIAN: * Jaky Andujar *READING PHYSICIAN: * Elias Balderas, *PILL MAKER: * Sandie Bishop MD INDICATIONS: . CONCLUSIONS SUMMARY: 1. Aortic valve: Probably trileaflet; moderately thickened, moderately calcified leaflets. There is severe stenosis. There is moderate, 2+ regurgitation. The peak systolic velocity is 4.2 m/sec. The mean systolic gradient is 46 mm Hg. The valve area by the velocity-time integral method is 0.6 cm^2. 2. Left ventricle: Average LV global longitudinal strain is -22. This is normal. Systolic function is normal by the biplane method of disks. The estimated ejection fraction is 62%. There are no regional wall motion abnormalities. Doppler parameters are consistent with abnormal left ventricular relaxation (grade 1 diastolic dysfunction). The LVOT stroke index is 32 ml/m^2. 3. Left atrium: The atrium is mildly dilated. 4. Right atrium: Central venous pressure (est): 3 mm Hg. 5. Aortic root: The aortic root is normal in size. 6. Pulmonary arteries: Systolic pressure can not be accurately estimated. 7. Compared to report of 07/2020 there is progression of AV stenosis to severe. STUDY DATA: Complete transthoracic echocardiogram. Procedure: Image quality was fair. The study was technically limited due to poor acoustic window availability. M-mode, complete 2D, 3D, complete spectral Doppler, and color flow Doppler images were acquired and Ultrasound Report archived for permanent storage and are available for subsequent review. Study status: Routine. Patient status: Outpatient. FINDINGS LEFT VENTRICLE: Average LV global longitudinal strain is -22. This is normal. The cavity size is normal. Wall thickness is normal. Systolic function is normal by the biplane method of disks. The estimated ejection fraction is 62%. There are no regional wall motion abnormalities. There is an increased relative contribution of atrial contraction to ventricular filling. The tissue Doppler parameters are abnormal. Doppler parameters are consistent with abnormal left ventricular relaxation (grade 1 diastolic dysfunction). RIGHT VENTRICLE: The cavity size is normal. Systolic function is normal. VENTRICULAR SEPTUM: There is no evidence of a ventricular septal defect. LEFT ATRIUM: The atrium is mildly dilated. RIGHT ATRIUM: The atrium is normal in size. ATRIAL SEPTUM: Color Doppler shows no shunt. MITRAL VALVE: Mildly thickened leaflets. Doppler: There is no regurgitation. AORTIC VALVE: Probably trileaflet; moderately thickened, moderately calcified leaflets. Doppler: There is severe stenosis. There is moderate, 2+ regurgitation. Dimensionless index: 0.2. The valve area by the velocity-time integral method is 0.6 cm^2. The valve area index by the velocity-time integral method is 0.3 cm^2/m^2. The mean systolic gradient is 46 mm Hg. The peak systolic gradient is 70 mm Hg. The peak systolic velocity is 4.2 m/sec. TRICUSPID VALVE: Structurally normal valve. Normal thickness leaflets. Doppler: There is no significant regurgitation. PULMONIC VALVE: Structurally normal valve. Doppler: There is trivial, less than 1+ regurgitation. AORTA: The aorta is normal. Aortic root: The aortic root is normal in size. Ascending aorta: The ascending aorta is normal in size. PULMONARY ARTERY: Systolic pressure can not be accurately estimated. Main pulmonary artery: Normal. PERICARDIUM: There is no pericardial effusion. SYSTEMIC VEINS: Inferior vena cava: The vessel is normal. The IVC collapses by greater than 50% with inspiration. Measurements Value 08/08/2020 Reference Aortic root ID 2.9 cm <4.2 Aortic root ID, STJ, ED (L) 2.2 cm 2.3 - 3.5 Aortic root ID/bsa, STJ, (L) 1.0 cm/m^2 1.1 - 1.9 ED Value 08/08/2020 Reference Ascending aorta ID 2.9 cm 2.2 - 3.8 Ascending aorta ID/bsa, 1.4 cm/m^2 1.1 - 1.9 A-P Ascending aorta ID, A-P, 2.9 cm -------- (more content not included)... Normal [facility] Venous Duplex US Lower Ex t [place] 12-15-2021 VL Venous Duplex US Lower Ext Right Patient Name: VENANCIO GONSALVES Ultrasound ACCESSION EXAM DATE/TIME PROCEDURE ORDERING PROVIDER [id number] 12/15/2021 12:54 EDT VL Venous Duplex US MD TOMMY, AZAEL N Lower Ext Right CPT code 31486 Reason For Exam (VL Venous Duplex US Lower Ext Right) rt leg edema Report ULTRASOUND RIGHT LOWER EXTREMITY VEINS: CLINICAL INDICATION: Pain and swelling. TECHNIQUE: Ultrasonographic evaluation of the veins of the right lower extremity was performed to evaluate for the clinically suspected deep venous thrombosis. The left common femoral vein was evaluated as well. COMPARISON: None. FINDINGS: Color flow imaging demonstrates normal flow. Two-dimensional imaging demonstrates no evidence of filling defect or limited compressibility of the right common femoral, superficial femoral, popliteal, and visualized calf veins or left common femoral vein. Doppler interrogation demonstrates normal phasic flow with respiration with adequate augmentation and normal response to Valsalva maneuver. IMPRESSION: No evidence of right lower extremity deep venous thrombosis. Report Dictated on Final Dictating Physician: MD VEGA JAMES Signed Date and Time: 12/15/2021 1:12 pm Signed by: MD VEGA JAMES Transcribed Date and Time: 12/15/2021 1:14 Cardiovascular ACCESSION EXAM DATE/TIME PROCEDURE [id number] 12/15/2021 12:54 EDT VL Venous Duplex US Lower Ext Right CPT code 68605 Cardiovascular Reason For Exam (VL Venous Duplex US Lower Ext Right) rt leg edema Report ULTRASOUND RIGHT LOWER EXTREMITY VEINS: CLINICAL INDICATION: Pain and swelling. TECHNIQUE: Ultrasonographic evaluation of the veins of the right lower extremity was performed to evaluate for the clinically suspected deep venous thrombosis. The left common femoral vein was evaluated as well. COMPARISON: None. FINDINGS: Color flow imaging demonstrates normal flow. Two-dimensional imaging demonstrates no evidence of filling defect or limited compressibility of the right common femoral, superficial femoral, popliteal, and visualized calf veins or left common femoral vein. Doppler interrogation demonstrates normal phasic flow with respiration with adequate augmentation and normal response to Valsalva maneuver. IMPRESSION: No evidence of right lower extremity deep venous thrombosis. Report Dictated on Final Dictating Physician: MD VEGA JAMES Signed Date and Time: 12/15/2021 1:12 pm Signed by: MD VEGA JAMES Transcribed Date and Time: 12/15/2021 1:14 [facility] Office Visit (GST[facility]) VENANCIO GONSALVES ([id number]) 1955 M Date Time Provider Department 04/14/21 8:30 AM ANAT JEAN GSTNOR During your visit today, we recorded the following information about you: Pulse Blood pressure Weight Height 61/minute 144/84 92.5 kg 1.727 m Anat Jean PA-C 04/14/2021 8:48 AM Signed CHIEF COMPLAINT: Patient presents with: Recheck: EGD 09/17/20 GERD, H Pylori HPI Venancio Gonsalves is a 65 year old male with PMHx positive for aortic stenosis, diverticulosis, GERD here today for Recheck (EGD 09/17/20 GERD, H Pylori). Seen last in GI office for GERD s/p EGD 09/17/2020. Obtained stool testing as no specimens were received which revealed that pt was H. Pylori positive 10/30/2020. Was treated with quadruple regimen which was unsuccessful w/ stool still positive 12/17/2020. Then was provided triple regimen and confirmed successful eradication w/ stool negative 03/04/2021. Has been feeling much better for the past month. Taking Protonix 40 mg daily currently with relief. BMs are one per day, normal consistency, no blood. OV 10/15/2020 Venancio Gonsalves is a 65 year old male here today for Procedure Follow Up (EGD 09/17/20 Belching, reflux, chest pain ). EGD 09/17/2020 fundic gland polyps, otherwise normal, no specimens. Feeling well since the procedure. Taking Protonix 40 mg BID with good control in symptoms. BMs are usually one per day, soft, no blood. Current Outpatient Medications Medication Sig - amLODIPine (NORVASC) 5 mg tablet - metoprolol succinate ER (TOPROL XL) 50 mg 24 hr tablet - pantoprazole DR (PROTONIX) 40 mg tablet TAKE 1 TABLET BY MOUTH TWICE A DAY BEFORE MEALS - atorvastatin (LIPITOR) 40 mg tablet Take 40 mg by mouth once daily. No current facility-administere d medications for this visit. ALLERGIES Allergen Reactions - Sulfa (Sulfonamide * GI Upset Nausea. - Penicillins Rash Social History Tobacco Use - Smoking status: Never Smoker - Smokeless tobacco: Never Used Vaping Use - Vaping Use: Never used Substance Use Topics - Alcohol use: Yes Comment: occ. - Drug use: No PAST MEDICAL HISTORY Diagnosis Date - Aortic stenosis - Disc degeneration, lumbar - Diverticulosis - GERD (gastroesophageal reflux disease) - Skin cancer 2016 PAST SURGICAL HISTORY Procedure Laterality Date - COLONOSCOPY 12/15/2017 Diverticulosis - EGD 09/17/2020 Fundic gland polyps, otherwise normal FAMILY HISTORY Problem Relation Age of Onset - Colon Cancer No Family History REVIEW OF SYSTEMS Review of Systems All other systems reviewed and are negative. PHYSICAL EXAM BP 144/84 Pulse 61 Ht 5' 8 (1.73m) Wt 204 lb (92.5kg) BMI 31.03 kg/(m2). Physical Exam Constitutional: General: He is not in acute distress. Appearance: Normal appearance. He is normal weight. He is not ill-appearing, toxic-appearing or diaphoretic. HENT: Head: Normocephalic and atraumatic. Nose: Nose normal. Eyes: General: No scleral icterus. Right eye: No discharge. Left eye: No discharge. Extraocular Movements: Extraocular movements intact. Conjunctiva/sclera: Conjunctivae normal. Pupils: Pupils are equal, round, and reactive to light. Cardiovascular: Rate and Rhythm: Normal rate and regular rhythm. Pulses: Normal pulses. Heart sounds: Murmur heard. No friction rub. No gallop. Pulmonary: Effort: No respiratory distress. Breath sounds: Normal breath sounds. No stridor. No wheezing, rhonchi or rales. Chest: Chest wall: No tenderness. Abdominal: General: Abdomen is flat. Bowel sounds are normal. There is no distension. Palpations: Abdomen is soft. There is no mass. Tenderness: There is no abdominal tenderness. There is no right CVA tenderness, left CVA tenderness, guarding or rebound. Hernia: No hernia is present. Musculoskeletal: General: Normal range of motion. Cervical back: Normal range of motion and neck supple. Skin: General: Skin is warm and dry. Neurological: General: No focal deficit present. Mental Status: He is alert and oriented to person, place, and time. Psychiatric: Mood and Affect: Mood normal. Behavior: Behavior normal. Assessment/Plan (K21.9) Gastroesophageal reflux disease without esophagitis (primary encounter diagnosis) (Z86.19) History of Helicobacter pylori infection 1. Gastroesophageal reflux disease without esophagitis - Patient clinically doing well s/p H. Pylori triple treatment. Advised slowly weaning off of Protonix 40 mg. Take every other day, every two days until he is able to come off of PPI - He may start PPI daily again for any refractory symptoms - Follow anti-reflux precautions - Avoid NSAIDs 2. History of Helicobacter pylori infection Follow up in office 12 months/PRN. Recommended to please call office/go to ER if fever, chills, chest pain, SOB, diarrhea, nausea, carol (more content not included)... Normal [facility] H. pylori antigenOrdered By: Unknown Result on 12-17-2020 H Pylori Ag, Stool Positive Abnormal [employer] Work Phone: Interpretation and review of laboratory results Abnormal [employer] Work Phone: Test Performed by [employer] [address] [employer] Work Phone: [employer] Work Phone: CNOVon 10-15-2020 [facility] Office Visit ([facility]ST[facility]) VENANCIO GONSALVES ([id number]) 1955 M Date Time Provider Department 10/15/20 3:30 PM ANAT JEAN During your visit today, we recorded the following information about you: Pulse Blood pressure Weight Height 67/minute 122/84 88.5 kg 1.727 m Anat Jean PA-C 10/15/2020 8:12 PM Signed HPI Venancio Gonsalves is a 65 year old male here today for Procedure Follow Up (EGD 09/17/20 Belching, reflux, chest pain ). EGD 09/17/2020 fundic gland polyps, otherwise normal, no specimens. Feeling well since the procedure. Taking Protonix 40 mg BID with good control in symptoms. BMs are usually one per day, soft, no blood. OV 08/21/2020 Venancio Gonsalves is a 65 year old male who presents for Chest Pain (Reflux, Belching-was in [facility] in July ). Has had reflux, indigestion for the past month. Went to [facility] 08/08/2020 for chest pain/reflux. Had heart cath which showed moderate aortic stenosis, EKG. On aspirin daily. Was discharged with Protonix 40 mg BID which has been helping symptoms. Has never had EGD. Has intermittent epigastric pain. BMs are usually one per day, soft, no blood. Admits to recent constipation Denies N/V, weight loss, dysphagia. ? Colonoscopy 2018 diverticulosis. ? Denies smoking, illicit drugs, EtOH Record Review: [facility] records reviewed Current Outpatient Medications Medication Sig - amLODIPine (NORVASC) 10 mg tablet Take 10 mg by mouth once daily. - metoprolol succinate ER (TOPROL XL) 25 mg 24 hr tablet Take 25 mg by mouth once daily. - pantoprazole DR (PROTONIX) 40 mg tablet TAKE 1 TABLET BY MOUTH TWICE A DAY BEFORE MEALS - atorvastatin (LIPITOR) 40 mg tablet Take 40 mg by mouth once daily. - BABY ASPIRIN ORAL Take 81 mg by mouth. No current facility-administere d medications for this visit. ALLERGIES Allergen Reactions - Sulfa (Sulfonamide * GI Upset Nausea. - Penicillins Rash Social History Tobacco Use - Smoking status: Never Smoker - Smokeless tobacco: Never Used Vaping Use - Vaping Use: Never used Substance Use Topics - Alcohol use: Yes Comment: occ. - Drug use: No PAST MEDICAL HISTORY Diagnosis Date - Aortic stenosis - Disc degeneration, lumbar - Diverticulosis - GERD (gastroesophageal reflux disease) - Skin cancer 2017 PAST SURGICAL HISTORY Procedure Laterality Date - COLONOSCOPY 12/15/2017 Diverticulosis - EGD 09/17/2020 Fundic gland polyps, otherwise normal FAMILY HISTORY Problem Relation Age of Onset - Colon Cancer No Family History REVIEW OF SYSTEMS Review of Systems Gastrointestinal: Heartburn All other systems reviewed and are negative. PHYSICAL EXAM BP 122/84 Pulse 67 Ht 172.7 cm (5' 8) Wt 88.5 kg (195 lb) BMI 29.65 kg/m? BMI 29.65 kg/(m2) Physical Exam Constitutional: General: He is not in acute distress. Appearance: He is not diaphoretic. HENT: Head: Normocephalic and atraumatic. Eyes: Conjunctiva/sclera: Conjunctivae normal. Pupils: Pupils are equal, round, and reactive to light. Cardiovascular: Rate and Rhythm: Normal rate and regular rhythm. Heart sounds: Normal heart sounds. No murmur heard. No friction rub. No gallop. Pulmonary: Effort: Pulmonary effort is normal. No respiratory distress. Breath sounds: Normal breath sounds. No wheezing or rales. Chest: Chest wall: No tenderness. Abdominal: General: Bowel sounds are normal. There is no distension. Palpations: Abdomen is soft. There is no mass. Tenderness: There is no abdominal tenderness. There is no guarding or rebound. Musculoskeletal: General: Normal range of motion. Cervical back: Normal range of motion and neck supple. Skin: General: Skin is warm and dry. Neurological: Mental Status: He is alert and oriented to person, place, and time. Psychiatric: Mood and Affect: Mood and affect normal. Assessment/Plan (K21.9) Gastroesophageal reflux disease, unspecified whether esophagitis present (primary encounter diagnosis) 1. Gastroesophageal reflux disease, unspecified whether esophagitis present - H PYLORI AG BY EIA,STOOL; Future - Recommended obtaining H. Pylori stool testing as no biopsies were obtained from endoscopy. - Continue anti-reflux precautions - Continue Protonix 40 mg BID for next 8-12 weeks then instructed to - Discussed possible esophageal manometry which patient and would like to wait on receiving current as symptoms have improved with medications - Consider manometry with impedance testing next OV if still requiring high dose Protonix to control symptoms Recommended to please call office/go to ER if fever, chills, chest pain, SOB, diarrhea, nausea, emesis, worsening abdominal pain, dehydration occurs I spent 15 minutes in the visit, with more than 50% of the total [id number] time of the visit in counseling / coordination of care. I have confirmed and edited (more content not included)... Normal [facility] PreOp/PreProc COVIDon 2020 SARS-CoV-2 (COVID-19) RNA JOSÉ MIGUEL+probe Ql (Unsp spec) UPPER RESPIRATORY TRACT SWAB Normal [facility] Comment on above: Performed By: #### P OCOVD #### [facility] [address] [address] SARS-CoV-2 (COVID-19) RNA JOSÉ MIGUEL+probe Ql (Unsp spec) Negative Normal Negative for COVID19 (SARS CoV2) by PCR. [facility] Comment on above: Result Comment: This test was developed and its performance characteristics determined by [facility] [place]. This test has been authorized by FDA under an Emergency Use Authorization (EUA). This test has been validated in accordance with the FDA's Guidance Document Policy for Diagnostics Testing in Laboratories Certified to Perform High Complexity Testing under CLIA prior to Emergency use Authorization for Coronavirus Disease 2019 during the Public Health Emergency issued on July 28, 2019. Test performed by [facility], [facility] [place], [address] [address]. Performed By: #### P OCOVD #### [facility] [address] [place] [address] CNCOon 09-01-2020 CNCO Letter Text Normal [facility] CNPNon 09-01-2020 CNPN Telephone (GSTNOR) VENANCIO GONSALVES ([id number]) 1955 M Date Time Provider Department 09/01/20 ANAT JEAN) GSTNOR During your visit today, we recorded the following information about you: Anat Jean PA-C 09/01/2020 2:05 PM Signed COVID order placed for EGD at [facility]. Anat Jean PA-C Allergies As of Date: 09/01/2020 Noted Allergy Reaction SULFA (SULFONAMIDE ANTIBIOTICS) 12/09/2017 8 - GI Upset Comments: Nausea. PENICILLINS 12/15/2017 2 - Rash Date Reviewed: 08/21/2020 Reviewed by: Carmella Gaspar Ma - Fully Assessed Reason for Visit: Orders [681] Primary Visit Diagnosis:Gastroesop hageal reflux disease, unspecified whether esophagitis present [K21.9] Order(s):PRE-PROCEDU RE AND PRE-OPERATIVE COVID [SQPOCOVD] Order #: [id number] FUTURE Prescriptions as of 09/01/2020 Sig: AMLODIPINE 10 MG TABLET Take 10 mg by mouth once steve* GABAPENTIN 300 MG CAPSULE TAKE 1 CAPSULE BY MOUTH EVERY* Patient not taking: TAKE 1 CAPSULE BY MOUTH EVERY* METOPROLOL SUCCINATE ER 25 MG* Take 25 mg by mouth once steve* PANTOPRAZOLE 40 MG TABLET,DEL* TAKE 1 TABLET BY MOUTH TWICE * ATORVASTATIN 40 MG TABLET Take 40 mg by mouth once steve* BABY ASPIRIN ORAL Take 81 mg by mouth. Problem List As Of Date: 09/01/2020 (None) Encounter Status:Closed by ANAT JEAN on 09/01/20 [facility] 08-26-2020 CNPN Telephone ([facility]STNOR) VENANCIO GONSALVES ([id number]) 1955 Date Time Provider Department 08/26/20 ANAT JEAN) GSTNOR During your visit today, we recorded the following information about you: Anat Jean PA-C 08/26/2020 11:05 AM Signed Patient called yesterday stating that he was cleared by Cardio to have EGD. Placed order please advise. Thank you! Anat Jean PA-C Allergies As of Date: 08/26/2020 Noted Allergy Reaction SULFA (SULFONAMIDE ANTIBIOTICS) 12/09/2017 8 - GI Upset Comments: Nausea. PENICILLINS 12/15/2017 2 - Rash Date Reviewed: 08/21/2020 Reviewed by: Carmella Gaspar Ma - Fully Assessed Reason for Visit: Patient Update [1234] Primary Visit Diagnosis:Gastroesop hageal reflux disease, unspecified whether esophagitis present [K21.9] Order(s):EGD [[id number]] Order #: [id number] FUTURE Prescriptions as of 08/26/2020 Sig: AMLODIPINE 10 MG TABLET Take 10 mg by mouth once steve* GABAPENTIN 300 MG CAPSULE TAKE 1 CAPSULE BY MOUTH EVERY* Patient not taking: TAKE 1 CAPSULE BY MOUTH EVERY* METOPROLOL SUCCINATE ER 25 MG* Take 25 mg by mouth once steve* PANTOPRAZOLE 40 MG TABLET,DEL* TAKE 1 TABLET BY MOUTH TWICE * ATORVASTATIN 40 MG TABLET Take 40 mg by mouth once steve* BABY ASPIRIN ORAL Take 81 mg by mouth. Problem List As Of Date: 08/26/2020 (None) Encounter Status:Closed by ANAT JEAN on 08/26/20 [facility] CNOVon 08-21-2020 [facility] Office Visit ([facility]) VENANCIO GONSALVES ([id number]) 1955 M Date Time Provider Department 08/21/20 2:30 PM ANAT JEAN) GSTNOR During your visit today, we recorded the following information about you: Pulse Blood pressure Weight Height 69/minute 136/74 87.5 kg 1.727 m Anat Jean PA-C 08/21/2020 4:19 PM Signed HPI: Venancio Gonsalves is a 65 year old male who presents for Chest Pain (Reflux, Belching-was in [facility] in July ). Has had reflux, indigestion for the past month. Went to [facility] 08/08/2020 for chest pain/reflux. Had heart cath which showed moderate aortic stenosis, EKG. On aspirin daily. Was discharged with Protonix 40 mg BID which has been helping symptoms. Has never had EGD. Has intermittent epigastric pain. BMs are usually one per day, soft, no blood. Admits to recent constipation Denies N/V, weight loss, dysphagia. Colonoscopy 2018 diverticulosis. Denies smoking, illicit drugs, EtOH Record Review: [facility] records reviewed PAST MEDICAL HISTORY Diagnosis Date - Aortic stenosis - Disc degeneration, lumbar - Diverticulosis - GERD (gastroesophageal reflux disease) - Skin cancer 2017 PAST SURGICAL HISTORY Procedure Laterality Date - COLONOSCOPY 12/15/2017 Diverticulosis Allergies: ALLERGIES Allergen Reactions - Sulfa (Sulfonamide * GI Upset Nausea. - Penicillins Rash Medications: amLODIPine (NORVASC) 10 mg tablet Take 10 mg by mouth once daily. metoprolol succinate ER (TOPROL XL) 25 mg 24 hr tablet Take 25 mg by mouth once daily. pantoprazole DR (PROTONIX) 40 mg tablet TAKE 1 TABLET BY MOUTH TWICE A DAY BEFORE MEALS atorvastatin (LIPITOR) 40 mg tablet Take 40 mg by mouth once daily. BABY ASPIRIN ORAL Take 81 mg by mouth. gabapentin (NEURONTIN) 300 mg capsule TAKE 1 CAPSULE BY MOUTH EVERY DAY AT NIGHT FAMILY HISTORY Problem Relation Age of Onset - Colon Cancer No Family History Employer And Job Title: None on file Years Of Education Completed: Not specified Marital Status: Social History Tobacco Use - Smoking status: Never Smoker - Smokeless tobacco: Never Used Vaping Use - Vaping Use: Never used Substance Use Topics - Alcohol use: Yes Comment: occ. - Drug use: No Review of Systems: Review of Systems Constitutional: Positive for appetite change and unexpected weight change. Cardiovascular: Positive for chest pain. Gastrointestinal: Change in Bowel Habits, Gas, Heartburn All other systems reviewed and are negative. Where do you currently reside? [place]ependently Are you taking any blood thinners? No Physical Examination: BP 136/74 Pulse 69 Ht 172.7 cm (5' 8) Wt 87.5 kg (193 lb) BMI 29.35 kg/m? Physical Exam Constitutional: General: He is not in acute distress. Appearance: He is not diaphoretic. HENT: Head: Normocephalic and atraumatic. Eyes: Conjunctiva/sclera: Conjunctivae normal. Pupils: Pupils are equal, round, and reactive to light. Cardiovascular: Rate and Rhythm: Normal rate and regular rhythm. Heart sounds: Murmur heard. No friction rub. No gallop. Pulmonary: Effort: Pulmonary effort is normal. No respiratory distress. Breath sounds: Normal breath sounds. No wheezing or rales. Chest: Chest wall: No tenderness. Abdominal: General: Bowel sounds are normal. There is no distension. Palpations: Abdomen is soft. There is no mass. Tenderness: There is no abdominal tenderness. There is no guarding or rebound. Musculoskeletal: General: Normal range of motion. Cervical back: Normal range of motion and neck supple. Skin: General: Skin is warm and dry. Neurological: Mental Status: He is alert and oriented to person, place, and time. Psychiatric: Mood and Affect: Mood and affect normal. Assessment/Plan (K21.9) Gastroesophageal reflux disease, unspecified whether esophagitis present (primary encounter diagnosis) 1. Gastroesophageal reflux disease, unspecified whether esophagitis present - Discussed reflux precautions in detail and provided printed handout. - Continue Protonix 40 mg BID - Patient had recent cardiac cath, will discuss with office to try to see if patient have have EGD at [facility] if cleared by [facility] for procedure. Recommend high protein, high fiber diet. Promotion of salivation through oral lozenges/chewing gum Drink plenty of water Avoid NSAIDs (such as Advil, Ibuprofen, Excedrin, Mobic), tobacco, alcohol, carbonated beverages, caffeine, chocolate, tomato based sauces, spicy/fatty foods, and peppermint Avoid eating less than 3 hours before bed. Elevate the head of the bed 6 inches, or invest in a wedge pillow. Laying on left side with head elevated may help alleviate reflux symptoms. Recommended to please call office/go to ER if fever, chills, chest pain, SOB, diarrhea, nausea, emesis, worsening abdominal pain, dehydration occurs I spent 20 minutes in t (more content not included)... Normal [facility] Diagnostic Cardiac Investigator Utility Bill Complaints Procedureon 08-11-2020 Rm, [facility] Incoming Cardiology Results From Aimee/Yoon - 08/11/2020 12:37 PM EDT [facility]ARDIOV[facility] [place] CARDIAC CATHETERIZATION Patient: Venancio Gonsalves Procedure Date: 08/11/2020 : 1955 Age: 65 Gender: M Patient Type: Inpatient Procedure physician: Giovanni Charles MD Fellow: Referring Physician: Elias Edwards MD INDICATIONS: Aortic valve disease. Procedures performed: # Right heart catheterization. # Right coronary angiography. # Left coronary angiography. # Left heart catheterization with angiography. # Ascending aortography. SUMMARY: 1. Left ventricle: Systolic function is normal. The estimated ejection fraction is 70-75%. 2. Aortic valve: There is moderate to severe stenosis. There is mild regurgitation. IMPRESSIONS: 1. There was no evidence of significant coronary artery disease. 2. Moderately Severe aortic stenosis. 3. Mild aortic regurgitation. RECOMMENDATIONS: 1. Valve clinic should be consulted for aortic valve evaluation. 2. Consider non-cardiac cause for symptoms. HISTORY: Chest pain. Aortic stenosis. Risk factors: Hypertension. Dyslipidemia. PROCEDURE IN DETAIL: Study status: Cardiac cath: urgent. Consent: The risks, benefits, and alternatives to the procedure and sedation were explained to the patient and informed consent was obtained. Fluoroscop y time: Fluoroscopy time: 6.4 min. Fluoroscopy dose: Fluoroscopy dose : 36.2 cGy. Location: Catheterization laboratory. PROCEDURE: 1. Initial setup. The patient was brought to the laboratory. A baseline ECG was recorded. Intravenous access was obtained. Surface ECG leads, blood pressure measurements, and pulse oximetric signals were monitored. 2. Skin preparation. The planned puncture sites were prepped and draped in the usual sterile manner. 3. Right brachial vein access. A 7Fr/10cm Glidesheath Slender sheath was advanced into the vessel. 4. Right heart catheterization was performed. A 7Fr SWAN-GAVIN TD catheter was advanced to the right ventricle under fluoroscopic guidance. 5. Right radial artery access. A 6Fr/10cm Glidesheath Slender sheath was advanced into the vessel. 6. Selective right coronary angiography. A 5Fr x 100cm MPB2 catheter was advanced into the right coronary vessel ostium under fluoroscopic guidance. Contrast was injected. Images were obtained in multiple projections. 7. Selective left coronary angiography. A 5Fr x 100cm MPB2 catheter was advanced into the left coronary vessel ostium under fluoroscopic guidance. Contrast was injected. Images were obtained in multiple projections. 8. Left heart catheterization with angiography. A 5Fr x 100cm MPB2 catheter was advanced across the aortic valve to the left ventricle under fluoroscopic guidance. 15 ml of contrast was injected at 9 ml/s. 9. Ascending aortography. A 5Fr x 100cm MPB2 catheter was positioned in the ascending aorta. 26 ml of contrast was injected at 11 ml/s. 10. Right brachial vein hemostasis. Manual compression was applied. 11. Right radial artery hemostasis. Mechanical compression was applied. STUDY COMPLETION: All catheters inserted during the procedure were removed. The patient tolerated the procedure well and was discharged fro m the lab. There were no complications. Administered medications: Orion apamil (Isoptin, Calan, Covera), 2.5mg, intra-arterially, VERAPAMIL. NI TROGLYCERIN (IA), 200mcg, intra-arterially, NITROGLYCERIN (IA). Heparin , 4000units, IV, HEPARIN. Contrast: 1. ISOVUE 300MG/CC 81 ml (total d ose). CORONARY ARTERIES: The coronary circulation is right dominant. The left main bifurcates normally into the LAD and circumflex. Left main: Normal. LAD: Normal. Large. Left circumflex: Normal. Medium-large. Right coronary: Normal. Normal-sized. LEFT VENTRICLE: Systolic function is normal. The estimated ejection fraction is 70-75%. AORTIC VALVE: There is moderate to severe stenosis. There is mild regurgitation. MITRAL VALVE: There is no regurgitation. HEMODYNAMICS: + + -----+ + +Stage description +Condition1:Room Air - +Condition1:Room Air - + + +Roseanna +Thermo + + + -----+ + +Venous saturation +PA: 76.1% + -----+ + + -----+ + +Arterial saturation+98.2% + -----+ + + -----+ + +O2 uptake, +Hgb: 15.7 g/dl +Hgb: 15.7 g/dl + +hemoglobin + + + + + -----+ + +Systemic cardiac +2.65 L/(min-m^2) +4.8 L/min, 2.36 + +output (Qs) + +L/(min-m^2) + + + -----+ + +HR, R-R, stroke + -----+62 bpm, 77 ml + +volume + + + + + -----+ + +RA pressure a/v (m)+17/14 (12) +17/14 (12) + + + -----+ + +RV pressure s/d, ed+38/7, 16 +38/7, 16 + + + -----+ + +PA pressure s/d (m)+44/17 (28) +44/17 (28) + + + -----+ + +PA wedge a/v (m) +43/43 (29) +43/43 (29) + + + -----+ + +LV pressure s/d, ed+175/18, 28 +175/18, 28 + + + -----+ + +Arterial pressure +130/62 (90) +130/62 (90) + +s/d (m) + + + + + -----+ + +Systemic vascular +1166 dyn-sec/cm5, 2356 +1307 dyn-sec/cm5 + +resistance +dyn-sec-m^2/cm5 + + + + -----+ + +Total systemic +1346 dyn-sec/cm5, 2718 +1508 dyn-sec/cm5 + +resistance +dyn-sec-m^2/cm5 + + + + -----+ + +Pulmonary vascular +-15 dyn-sec/cm5, -30 +-17 dyn-sec/cm5 + +resistance +dyn-sec-m^2/cm5 + + + + -----+ + AORTIC VALVE: + + ----+ + +Stage description +Condition1:Room Air +Condition1:Room Air + + +Roseanna +Thermo + + + ----+ + +Mean gradient +41.9 mm Hg +41.9 mm Hg + + + ----+ + +Peak-peak gradient +45 mm Hg +45 mm Hg + + + ----+ + +Cardiac output + ----+4.8 L/min + + + ----+ + +R-R interval + ----+968 ms + + + ----+ + +Systolic ejection +342 ms +342 ms + +time + + + + + ----+ + +Valve area +0.96 cm^2 +0.85 cm^2 + + + ----+ + +Valve area index +0.47 cm^2/m^2 +0.42 cm^2/m^2 + + + ----+ + Prepared and electronically signed by Giovanni Charles MD 08/11/2020 12:36 [employer] Work Phone: [facility] [employer] [place] CARDIAC CATHETERIZATION Patient: Venancio Gonsalves Procedure Date: 08/11/2020 : 1955 Age: 65 Gender: M Patient Type: Inpatient Procedure physician: Giovanni Charles MD Fellow: Referring Physician: Elias Edwards MD INDICATIONS: Aortic valve disease. Procedures performed: # Right heart catheterization. # Right coronary angiography. # Left coronary angiography. # Left heart catheterization with angiography. # Ascending aortography. SUMMARY: 1. Left ventricle: Systolic function is normal. The estimated ejection fraction is 70-75%. 2. Aortic valve: There is moderate to severe stenosis. There is mild regurgitation. IMPRESSIONS: 1. There was no evidence of significant coronary artery disease. 2. Moderately Severe aortic stenosis. 3. Mild aortic regurgitation. RECOMMENDATIONS: 1. Valve clinic should be consulted for aortic valve evaluation. 2. Consider non-cardiac cause for symptoms. HISTORY: Chest pain. Aortic stenosis. Risk factors: Hypertension. Dyslipidemia. PROCEDURE IN DETAIL: Study status: Cardiac cath: urgent. Consent: The risks, benefits, and alternatives to the procedure and sedation were explained to the patient and informed consent was obtained. Fluoroscop y time: Fluoroscopy time: 6.4 min. Fluoroscopy dose: Fluoroscopy dose : 36.2 cGy. Location: Catheterization laboratory. PROCEDURE: 1. Initial setup. The patient was brought to the laboratory. A baseline ECG was recorded. Intravenous access was obtained. Surface ECG leads, blood pressure measurements, and pulse oximetric signals were monitored. 2. Skin preparation. The planned puncture sites were prepped and draped in the usual sterile manner. 3. Right brachial vein access. A 7Fr/10cm Glidesheath Slender sheath was advanced into the vessel. 4. Right heart catheterization was performed. A 7Fr SWAN-GAVIN TD catheter was advanced to the right ventricle under fluoroscopic guidance. 5. Right radial artery access. A 6Fr/10cm Glidesheath Slender sheath was advanced into the vessel. 6. Selective right coronary angiography. A 5Fr x 100cm MPB2 catheter was advanced into the right coronary vessel ostium under fluoroscopic guidance. Contrast was injected. Images were obtained in multiple projections. 7. Selective left coronary angiography. A 5Fr x 100cm MPB2 catheter was advanced into the left coronary vessel ostium under fluoroscopic guidance. Contrast was injected. Images were obtained in multiple projections. 8. Left heart catheterization with angiography. A 5Fr x 100cm MPB2 catheter was advanced across the aortic valve to the left ventricle under fluoroscopic guidance. 15 ml of contrast was injected at 9 ml/s. 9. Ascending aortography. A 5Fr x 100cm MPB2 catheter was positioned in the ascending aorta. 26 ml of contrast was injected at 11 ml/s. 10. Right brachial vein hemostasis. Manual compression was applied. 11. Right radial artery hemostasis. Mechanical compression was applied. STUDY COMPLETION: All catheters inserted during the procedure were removed. The patient tolerated the procedure well and was discharged fro m the lab. There were no complications. Administered medications: Orion apamil (Isoptin, Calan, Covera), 2.5mg, intra-arterially, VERAPAMIL. NI TROGLYCERIN (IA), 200mcg, intra-arterially, NITROGLYCERIN (IA). Heparin , 4000units, IV, HEPARIN. Contrast: 1. ISOVUE 300MG/CC 81 ml (total d ose). CORONARY ARTERIES: The coronary circulation is right dominant. The left main bifurcates normally into the LAD and circumflex. Left main: Normal. LAD: Normal. Large. Left circumflex: Normal. Medium-large. Right coronary: Normal. Normal-sized. LEFT VENTRICLE: Systolic function is normal. The estimated ejection fraction is 70-75%. AORTIC VALVE: There is moderate to severe stenosis. There is mild regurgitation. MITRAL VALVE: There is no regurgitation. HEMODYNAMICS: + + -----+ + +Stage description +Condition1:Room Air - +Condition1:Room Air - + + +Roseanna +Thermo + + + -----+ + +Venous saturation +PA: 76.1% + -----+ + + -----+ + +Arterial saturation+98.2% + -----+ + + -----+ + +O2 uptake, +Hgb: 15.7 g/dl +Hgb: 15.7 g/dl + +hemoglobin + + + + + -----+ + +Systemic cardiac +2.65 L/(min-m^2) +4.8 L/min, 2.36 + +output (Qs) + +L/(min-m^2) + + + -----+ + +HR, R-R, stroke + -----+62 bpm, 77 ml + +volume + + + + + -----+ + +RA pressure a/v (m)+17/14 (12) +17/14 (12) + + + -----+ + +RV pressure s/d, ed+38/7, 16 +38/7, 16 + + + -----+ + +PA pressure s/d (m)+44/17 (28) +44/17 (28) + + + -----+ + +PA wedge a/v (m) +43/43 (29) +43/43 (29) + + + -----+ + +LV pressure s/d, ed+175/18, 28 +175/18, 28 + + + -----+ + +Arterial pressure +130/62 (90) +130/62 (90) + +s/d (m) + + + + + -----+ + +Systemic vascular +1166 dyn-sec/cm5, 2356 +1307 dyn-sec/cm5 + +resistance +dyn-sec-m^2/cm5 + + + + -----+ + +Total systemic +1346 dyn-sec/cm5, 2718 +1508 dyn-sec/cm5 + +resistance +dyn-sec-m^2/cm5 + + + + -----+ + +Pulmonary vascular +-15 dyn-sec/cm5, -30 +-17 dyn-sec/cm5 + +resistance +dyn-sec-m^2/cm5 + + + + -----+ + AORTIC VALVE: + + ----+ + +Stage description +Condition1:Room Air +Condition1:Room Air + + +Roseanna +Thermo + + + ----+ + +Mean gradient +41.9 mm Hg +41.9 mm Hg + + + ----+ + +Peak-peak gradient +45 mm Hg +45 mm Hg + + + ----+ + +Cardiac output + ----+4.8 L/min + + + ----+ + +R-R interval + ----+968 ms + + + ----+ + +Systolic ejection +342 ms +342 ms + +time + + + + + ----+ + +Valve area +0.96 cm^2 +0.85 cm^2 + + + ----+ + +Valve area index +0.47 cm^2/m^2 +0.42 cm^2/m^2 + + + ----+ + Prepared and electronically signed by Giovanni Charles MD 08/11/2020 12:36 [employer] Work Phone: Basic Metabolic Panelon 07-28 Anion gap [Moles/Vol] 10 mmol/L 3 - 13 mmol/L [facility] Phone: Calcium [Mass/Vol] 9.6 mg/dL 8.4 - 10. 4 mg/dL [facility] Work Phone: Chloride [Moles/Vol] 102 mmol/L 98 - 10 7 mmol/L [facility] Work Phone: CO2 [Moles/Vol] 23 mmol/L 22 - 30 mmol/L [facility] Work Phone: Creatinine [Mass/Vol] 0.78 mg/dL 0.52 - 1.25 mg/dL [facility] Work Phone: EGFR IF NonAfrican Mexican >90.0 >60 mL/min [facility] Work Phone: Comment on above: KDIGO guidelines pro vide the following GFR categories: Stage GFR(ml/min/1.73 m2) Terms G1 >=90 Normal or high G2 60-89 Mildly decreased* G3a 45-59 Mildly to moderately decreased G3b 30-44 Moderately to severely decreased G4 15-29 Severely decreased G5 <15 Kidney failure *Relative to young adult level. In the absence of evidence of kidney damage, neither GFR category G1 nor G2 fulfill the criteria for CKD. The CKD-EPI equation is validated in individuals 18 years of age and older. Currently the best equation for estimating glomerular filtration rate (GFR) from serum creatinine in children is the Bedside Norman equation. It is less accurate in patients with extremes of muscle mass, restriction of dietary protein, ingestion of creatine, extra-renal metabolism of creatinine, or treatment with medications that affect renal tubular creatinine secretion. GFR/1.73 sq M predicted among blacks MDRD (S/P/Bld) [Vol rate/Area] mL/min/{1.73_m2} >60 mL/min [facility] Work Phone: Glucose [Mass/Vol] 89 mg/dL 70 - 100 mg/dL [facility] Work Phone: Potassium [Moles/Vol] 4.4 mmol/L 3.5 - 5.1 mmol/L [facility] Work Phone: Sodium [Moles/Vol] 135 mmol/L 135 - 145 mmol/L [facility] Work Phone: Urea nitrogen [Mass/Vol] 14 mg/dL 7 - 20 mg/d L [employer] Work Phone: Test Performed by [employer] [address] [employer] Work Phone: CBC Auto Differentialon 07-28 Absolute Baso # 0.0 10*3/uL 0.0 - 0.2 10*3/uL [employer] Work Phone: Absolute Neut # 2.8 10*3/uL 1.8 - 7.0 10*3/uL [employer] Work Phone: Basophils/100 WBC (Bld) 0.8 % 0.0 - 2.0 % [employer] Work Phone: Eosinophils (Bld) [#/Vol] 0.1 10*3/uL 0.0 - 0.5 10*3/uL [employer] Work Phone: Eosinophils/100 WBC (Bld) 1.8 % 1.0 - 6.0 % [employer] Work Phone: Erythrocyte distribution width (RBC) [Ratio] 12.8 % 11.5 - 14.5 % [employer] Work Phone: Granulocytes/100 WBC (Bld) 56.0 % 40.0 - 80.0 % [employer] Work Phone: Hematocrit (Bld) [Volume fraction] 46.5 % 40.0 - 52.0 % [employer] Work Phone: Hemoglobin (Bld) [Mass/Vol] 15.7 g/dL 13.0 - 18.0 g/dL [employer] Work Phone: Lymphocytes (Bld) [#/Vol] 1.7 10*3/uL 1.0 - 4.3 10*3/uL [employer] Work Phone: Lymphocytes/100 WBC (Bld) 33.5 % 20.0 - 40.0 % [employer] Work Phone: MCH (RBC) [Entitic mass] 30.7 pg 26. 0 - 34.0 pg [facility] Work Phone: MCHC (RBC) [Mass/Vol] 33.8 % 32.0 - 36.0 % [employer] Work Phone: MCV (RBC) [Entitic vol] 90.9 fL 80.0 - 98.0 fL [employer] Work Phone: Monocytes (Bld) [#/Vol] 0.4 10*3/uL 0.0 - 0.8 10*3/uL [employer] Work Phone: Monocytes/100 WBC (Bld) 7.9 % 2.0 - 10.0 % [employer] Work Phone: Platelet mean volume (Bld) [Entitic vol] 8.1 fL 7.4 - 10.4 fL [employer] Work Phone: Platelets (Bld) [#/Vol] 231 10*3/uL 140 - 440 10*3/uL [employer] Work Phone: RBC (Bld) [#/Vol] 5.11 10*6/uL 4.40 - 5.9 0 10*6/uL [employer] Work Phone: WBC (Bld) [#/Vol] 5.1 10*3/uL 3.6 - 10.7 10*3/uL [employer] Work Phone: Test Performed by [employer], [address] [place] [id number] [employer] Work Phone: EKG 12 Leadon 08-10-2020 Rm, [employer] Incoming Cardiology Results From [facility] - 08/10/2020 11:25 AM EDT [employer] Test Date: 2020-08-09 Pat Name: Venancio Gonsalves Department: 1ACDU [place]: [facility] [place] Gender: M Security Rep: CARLOS : 1955 Requested By: MADISON LUNSFORD Order Number: [id number] Harrison MD: Derek Butler Measurements Intervals [place] Rate: 55 P: 0 NM: 201 QRS: 12 QRSD: 92 T: 64 QT: 433 QTc: 415 Interpretive Statements Sinus bradycardia Anterior infarct, old Compared to ECG 08/08/2020 16:06:32 Myocardial infarct finding now present Sinus rhythm no longer present Electronically Signed On 08-10-2020 11:24:35 EDT by Derek LEMOSA Work Phone: [employer] Test Date: 2020-08-09 Pat Name: Venancio Gonsalves Department: 1ACDU [place]: [facility] [place] Gender: M Security Rep: CARLOS : 1955 Requested By: MADISON LUNSFORD Order Number: [id number] Reading MD: Derek Silver Measurements Intervals [place] Rate: 55 P: 0 NM: 201 QRS: 12 QRSD: 92 T: 64 QT: 433 QTc: 415 Interpretive Statements Sinus bradycardia Anterior infarct, old Compared to ECG 08/08/2020 16:06:32 Myocardial infarct finding now present Sinus rhythm no longer present Electronically Signed On 08-10-2020 11:24:35 EDT by Derek Butler [employer] Work Phone: [employer] Test Date: 2020-08-08 Pat Name: Venancio Gonsalves Department: Room: [facility] [place] Gender: M Security Rep: DP : 1955 Requested By: NEFTALI SHAH Order Number: [id number] Reading MD: Derek Silver Measurements Intervals [place] Rate: 86 P: 82 NM: 188 QRS: 6 QRSD: 91 T: 74 QT: 383 QTc: 458 Interpretive Statements Sinus rhythm Electronically Signed On 08-10-2020 8:16:19 EDT by Derek Butler [employer] Work Phone: [facility] Incoming Cardiology Results From [facility] - 08/10/2020 8:17 AM EDT [facility] Test Date: 2020-08-08 Pat Name: Venancio Gonsalves Department: Room: 12 Gender: M Security Rep: DP : 1955 Requested By: NEFTALI SHAH Order Number: [id number] Reading MD: Derek Silver Measurements Intervals [place] Rate: 86 P: 82 NM: 188 QRS: 6 QRSD: 91 T: 74 QT: 383 QTc: 458 Interpretive Statements Sinus rhythm Electronically Signed On 08-10-2020 8:16:19 EDT by Derek Butler [employer] Work Phone: Add On Lab Teston 08-09-2020 Sodium [Moles/Vol] Accepted [employer] Work Phone: Comment on above: Specimen available & acceptable for analysis. Test Performed by [employer] [address] [employer] Work Phone: Amylaseon 08-09-2020 Amylase [Catalytic activity/Vol] 54 U/L 30 - 130 U/L [employer] Work Phone: Basic Metabolic Panelon 07-28 Anion gap [Moles/Vol] 11 mmol/L 3 - 13 mmol/L [employer] Work Phone: Calcium [Mass/Vol] 9.3 mg/dL 8.4 - 10. 4 mg/dL [employer] Work Phone: Chloride [Moles/Vol] 102 mmol/L 98 - 10 7 mmol/L [employer] Work Phone: CO2 [Moles/Vol] 27 mmol/L 22 - 30 mmol/L [employer] Work Phone: Creatinine [Mass/Vol] 0.77 mg/dL 0.52 - 1.25 mg/dL [employer] Work Phone: EGFR IF NonAfrican Mexican >90.0 >60 mL/min [employer] Work Phone: Comment on above: KDIGO guidelines pro vide the following GFR categories: Stage GFR(ml/min/1.73 m2) Terms G1 >=90 Normal or high G2 60-89 Mildly decreased* G3a 45-59 Mildly to moderately decreased G3b 30-44 Moderately to severely decreased G4 15-29 Severely decreased G5 <15 Kidney failure *Relative to young adult level. In the absence of evidence of kidney damage, neither GFR category G1 nor G2 fulfill the criteria for CKD. The CKD-EPI equation is validated in individuals 18 years of age and older. Currently the best equation for estimating glomerular filtration rate (GFR) from serum creatinine in children is the Bedside Norman equation. It is less accurate in patients with extremes of muscle mass, restriction of dietary protein, ingestion of creatine, extra-renal metabolism of creatinine, or treatment with medications that affect renal tubular creatinine secretion. GFR/1.73 sq M predicted among blacks MDRD (S/P/Bld) [Vol rate/Area] mL/min/{1.73_m2} >60 mL/min [facility] Work Phone: Glucose [Mass/Vol] 90 mg/dL 70 - 100 mg/dL [employer] Work Phone: Potassium [Moles/Vol] 3.9 mmol/L 3.5 - 5.1 mmol/L [facility] Work Phone: Sodium [Moles/Vol] 140 mmol/L 135 - 145 mmol/L [employer] Work Phone: Urea nitrogen [Mass/Vol] 13 mg/dL 7 - 20 mg/d L [employer] Work Phone: Hepatic Function Panelon Albumin [Mass/Vol] 4.4 g/dL 3.5 - 5.0 g/dL [facility] Work Phone: ALP [Catalytic activity/Vol] 57 U/L 38 - 126 U/L [facility] Work Phone: ALT [Catalytic activity/Vol] 21 U/L 0 - 49 U/L [facility] Work Phone: Comment on above: The ALT test is perf ormed by an updated assay method. Please note that the reference intervals have been changed and are now sex specific. AST [Catalytic activity/Vol] 33 U/L 15 - 46 U/L [facility] Work Phone: Bilirubin Ql (U) 1.1 mg/dL 0.2 - 1.3 mg/dL [facility] Work Phone: Bilirubin.direct [Mass/Vol] 0.0 mg/dL 0.0 - 0.3 mg/dL [employer] Work Phone: Protein [Mass/Vol] 7.1 g/dL 6.3 - 8.2 g/dL [facility] Work Phone: Lipaseon 08-09-2020 Lipase [Catalytic activity/Vol] 51 U/L 23 - 300 U/L [facility] Work Phone: Lipid Panelon 08-09-2020 Cholesterol [Mass/Vol] 160 mg/dL <200 [facility] Work Phone: Cholesterol in HDL [Mass/Vol] 59 mg/dL 40 - 60 mg/dL [facility] Work Phone: Cholesterol in LDL [Mass/Vol] 85 mg/dL <100 [facility] Work Phone: Cholesterol.total/Choles terol in HDL [Mass ratio] 3 {ratio} [facility] Work Phone: Comment on above: Ref Range: < 3 Low Risk for CHD 3-6 Mod Risk for CHD > 6 High Risk for CHD Triglyceride [Mass/Vol] 78 mg/dL <150 [facility] Work Phone: Otheron 08-09-2020 Test Performed by [employer], [facility] [place] [address] [facility] Work Phone: Test Performed by [employer], [facility] [place] [address] [facility] Work Phone: Troponinon 08-09-2020 Troponin I.cardiac [Mass/Vol] 0.013 ng/mL 0.000 - 0.034 ng/mL [facility] Work Phone: Comment on above: . Test Performed by [employer], [facility] [place] [address] [facility] Work Phone: US ABDOMEN LIMITED Specify o rgan? GALLBLADDERon 08-09-2020 Patient Name: VENANCIO GONSALVES Ultrasound ACCESSION EXAM DATE/TIME PROCEDURE ORDERING PROVIDER [id number] 08/09/2020 12:18 EST US Abdomen Limited LILY CARRANZA LAUREN CPT code 59554 Reason For Exam (US Abdomen Limited) RUQ tenderness, possible biliary disease Report Exam type: Ultrasound abdomen RUQ CLINICAL HISTORY:RUQ tenderness, possible biliary disease COMPARISON: None Technique: Grayscale sonographic images were obtained of the right upper quadrant. Color Doppler was utilized. FINDINGS: Liver: There is increased echogenicity of the liver. Hepatic contours remain normal. A small hypoechoic area is seen adjacent to the gallbladder measuring 1.2 x 1.3 x 1.3 cm in size. There is no overlying vascular flow. No intra or extrahepatic biliary ductal dilatation is identified. The common bile duct is appropriate in size for the patient's age and measures three mm in diameter. Gallbladder: The gallbladder is unremarkable with no gallbladder wall thickening, pericholecystic fluid, or gallstones. There was a negative sonographic Jones's sign. Right Kidney: The right kidney is normal in contour, echogenicity, and size with no hydronephrosis or shadowing renal calculi. Overall, the right kidney measures 10.5 cm in length. Additional structures: The pancreas is unremarkable. IMPRESSION: No acute sonographic abnormality. Diffuse fatty infiltration of the liver. Small hypoechoic area within the liver adjacent to gallbladder with no overlying vascular flow. This finding is nonspecific and may represent an area of focal fatty sparing or hyperdense cyst. If clinically warranted, this can be further evaluated with cross-sectional imaging. Ultrasound Report Report Dictated on --- Final --- Dictated: 08/09/2020 12:25 pm Dictating Physician: MD WARD YUN ROBERT Signed Date and Time: 08/09/2020 12:27 pm Signed by: MD WARD YUN ROBERT Transcribed Date and Time: 08/09/2020 12:25 [facility] Work Phone: Rm, [facility] 12:28 PM EST [facility]: [id number] ACCESSION EXAM DATE/TIME PROCEDURE ORDERING PROVIDER [id number] 08/09/2020 12:18 EST US Abdomen Limited LILY CARRANZA LAUREN CPT code 41498 Reason For Exam (US Abdomen Limited) RUQ tenderness, possible biliary disease Report Exam type: Ultrasound abdomen RUQ CLINICAL HISTORY:RUQ tenderness, possible biliary disease COMPARISON: None Technique: Grayscale sonographic images were obtained of the right upper quadrant. Color Doppler was utilized. FINDINGS: Liver: There is increased echogenicity of the liver. Hepatic contours remain normal. A small hypoechoic area is seen adjacent to the gallbladder measuring 1.2 x 1.3 x 1.3 cm in size. There is no overlying vascular flow. No intra or extrahepatic biliary ductal dilatation is identified. The common bile duct is appropriate in size for the patient's age and measures three mm in diameter. Gallbladder: The gallbladder is unremarkable with no gallbladder wall thickening, pericholecystic fluid, or gallstones. There was a negative sonographic Jones's sign. Right Kidney: The right kidney is normal in contour, echogenicity, and size with no hydronephrosis or shadowing renal calculi. Overall, the right kidney measures 10.5 cm in length. Additional structures: The pancreas is unremarkable. IMPRESSION: No acute sonographic abnormality. Diffuse fatty infiltration of the liver. Small hypoechoic area within the liver adjacent to gallbladder with no overlying vascular flow. This finding is nonspecific and may represent an area of focal fatty sparing or hyperdense cyst. If clinically warranted, this can be further evaluated with cross-sectional imaging. Ultrasound Report Report Dictated on --- Final --- Dictated: 08/09/2020 12:25 pm Dictating Physician: MD WARD YUN ROBERT Signed Date and Time: 08/09/2020 12:27 pm Signed by: MD WARD YUN ROBERT Transcribed Date and Time: 08/09/2020 12:25 [facility] Work Phone: Add On Lab Teston 08-08-2020 Sodium [Moles/Vol] Accepted [facility] Work Phone: Comment on above: Specimen available & acceptable for analysis. Test Performed by [employer], [address] [place] [id number] [employer] Work Phone: Basic Metabolic Panelon 07-28 Anion gap [Moles/Vol] 14 mmol/L High 3 - 13 mmol/L [employer] Work Phone: Calcium [Mass/Vol] 9.4 mg/dL 8.4 - 10. 4 mg/dL [facility] Work Phone: Chloride [Moles/Vol] 100 mmol/L 98 - 10 7 mmol/L [facility] Work Phone: CO2 [Moles/Vol] 23 mmol/L 22 - 30 mmol/L [facility] Work Phone: Creatinine [Mass/Vol] 0.83 mg/dL 0.52 - 1.25 mg/dL [facility] Work Phone: EGFR IF NonAfrican Mexican >90.0 >60 mL/min [facility] Work Phone: Comment on above: KDIGO guidelines pro vide the following GFR categories: Stage GFR(ml/min/1.73 m2) Terms G1 >=90 Normal or high G2 60-89 Mildly decreased* G3a 45-59 Mildly to moderately decreased G3b 30-44 Moderately to severely decreased G4 15-29 Severely decreased G5 <15 Kidney failure *Relative to young adult level. In the absence of evidence of kidney damage, neither GFR category G1 nor G2 fulfill the criteria for CKD. The CKD-EPI equation is validated in individuals 18 years of age and older. Currently the best equation for estimating glomerular filtration rate (GFR) from serum creatinine in children is the Bedside Norman equation. It is less accurate in patients with extremes of muscle mass, restriction of dietary protein, ingestion of creatine, extra-renal metabolism of creatinine, or treatment with medications that affect renal tubular creatinine secretion. GFR/1.73 sq M predicted among blacks MDRD (S/P/Bld) [Vol rate/Area] mL/min/{1.73_m2} >60 mL/min [facility] Work Phone: Glucose [Mass/Vol] 88 mg/dL 70 - 100 mg/dL [facility] Work Phone: Interpretation and review of laboratory results Abnormal [facility] Work Phone: Potassium [Moles/Vol] 3.8 mmol/L 3.5 - 5.1 mmol/L [facility] Work Phone: Sodium [Moles/Vol] 138 mmol/L 135 - 145 mmol/L [employer] Work Phone: Urea nitrogen [Mass/Vol] 15 mg/dL 7 - 20 mg/d L [employer] Work Phone: Test Performed by [employer], [address] [place] [address] [employer] Work Phone: Brain Natriuretic Peptideon 08-08-2020 Interpretation and review of laboratory results Abnormal [employer] Work Phone: Natriuretic peptide B (Bld) [Mass/Vol] 202 pg/mL High 0 - 125 pg/mL [employer] Work Phone: CBC Auto Differentialon 07-28 Absolute Baso # 0.0 10*3/uL 0.0 - 0.2 10*3/uL [employer] Work Phone: Absolute Neut # 3.2 10*3/uL 1.8 - 7.0 10*3/uL [employer] Work Phone: Basophils/100 WBC (Bld) 0.7 % 0.0 - 2.0 % [employer] Work Phone: Eosinophils (Bld) [#/Vol] 0.1 10*3/uL 0.0 - 0.5 10*3/uL [employer] Work Phone: Eosinophils/100 WBC (Bld) 1.0 % 1.0 - 6.0 % [facility] Phone: Erythrocyte distribution width (RBC) [Ratio] 12.9 % 11.5 - 14.5 % [employer] Work Phone: Granulocytes/100 WBC (Bld) 64.7 % 40.0 - 80.0 % [employer] Work Phone: Hematocrit (Bld) [Volume fraction] 45.4 % 40.0 - 52.0 % [facility] Phone: Hemoglobin (Bld) [Mass/Vol] 15.7 g/dL 13.0 - 18.0 g/dL [facility] Phone: Lymphocytes (Bld) [#/Vol] 1.2 10*3/uL 1.0 - 4.3 10*3/uL [employer] Work Phone: Lymphocytes/100 WBC (Bld) 24.8 % 20.0 - 40.0 % [employer] Work Phone: MCH (RBC) [Entitic mass] 31.4 pg 26. 0 - 34.0 pg [employer] Work Phone: MCHC (RBC) [Mass/Vol] 34.5 % 32.0 - 36.0 % [employer] Work Phone: MCV (RBC) [Entitic vol] 91.1 fL 80.0 - 98.0 fL [employer] Work Phone: Monocytes (Bld) [#/Vol] 0.4 10*3/uL 0.0 - 0.8 10*3/uL [employer] Work Phone: Monocytes/100 WBC (Bld) 8.8 % 2.0 - 10.0 % [employer] Work Phone: Platelet mean volume (Bld) [Entitic vol] 8.0 fL 7.4 - 10.4 fL [employer] Work Phone: Platelets (Bld) [#/Vol] 215 10*3/uL 140 - 440 10*3/uL [employer] Work Phone: RBC (Bld) [#/Vol] 4.99 10*6/uL 4.40 - 5.9 0 10*6/uL [employer] Work Phone: WBC (Bld) [#/Vol] 5.2 10*3/uL 3.6 - 10.7 10*3/uL [employer] Work Phone: Test Performed by [employer], [address] [place] [id number] [employer] Work Phone: ECHO Complete 2D W Doppler W [facility] 08-08-2020 TRANSTHORACIC ECHOCARDIOGRAM PATIENT: Venancio Gonsalves STUDY DATE: 08/08/[address] [facility]#: [id number] : 1955 AGE: 65 HT/WT: 175.3 cm (69 88 kg in) (193.6 lb) GENDER: M BP: 129 / 99 LOCATION: [facility] STATUS: *ORDERING PHYSICIAN: * Azael Sanders *READING PHYSICIAN: * Chi YoungPILL MAKER: * Kathe Wilder MD RDCS,AE, PE, RVT INDICATIONS: HEART MURMUR CONCLUSIONS SUMMARY: 1. Left ventricle: The cavity size is normal. Wall thickness is mildly increased. Systolic function is by the biplane method of disks. The estimated ejection fraction is 66%. There are no regional wall motion abnormalities. 2. Right ventricle: Systolic function is normal. Right ventricular systolic pressure is within the normal range. 3. Left atrium: The atrium is mildly dilated. 4. Mitral valve: Structurally normal valve. There is no regurgitation. 5. Aortic valve: Severely thickened, severely calcified leaflets. There is moderate to severe stenosis. Visually and by doppler There is moderate, 2+ regurgitation. The peak systolic velocity is 3.6 m/sec. The mean systolic gradient is 29 mm Hg. Dimensionless index: 0.25. 6. Tricuspid valve: Structurally normal valve. 7. Aorta: The aorta is poorly visualized and normal. STUDY DATA: Complete transthoracic echocardiogram. Procedure: Image quality was adequate. M-mode, complete 2D, strain rate, complete spectral Doppler, and color flow Doppler images were acquired and archived for permanent storage and are available for subsequent review. Study status: Routine. Patient status: Outpatient. FINDINGS LEFT VENTRICLE: Average LV global longitudinal strain is -18. The cavity size is normal. Wall thickness is mildly increased. There is mild concentric hypertrophy. Systolic function is by the biplane method of disks. The estimated ejection fraction is 66%. There are no regional wall motion abnormalities. RIGHT VENTRICLE: The cavity size is normal. Systolic function is normal. Right ventricular systolic pressure is within the normal range. VENTRICULAR SEPTUM: There is no evidence of a ventricular septal defect. LEFT ATRIUM: The atrium is mildly dilated. RIGHT ATRIUM: The atrium is normal in size. ATRIAL SEPTUM: Color Doppler shows no shunt. MITRAL VALVE: Structurally normal valve. Doppler: There is no regurgitation. AORTIC VALVE: Severely thickened, severely calcified leaflets. Doppler: There is moderate to severe stenosis. Visually and by doppler There is moderate, 2+ regurgitation. Dimensionless index: 0.25. The valve area by the velocity-time integral method is 0.8 cm^2. The valve area index by the velocity-time integral method is 0.4 cm^2/m^2. The mean systolic gradient is 29 mm Hg. The peak systolic gradient is 52 mm Hg. The peak systolic velocity is 3.6 m/sec. TRICUSPID VALVE: Structurally normal valve. Doppler: There is trivial, less than 1+ regurgitation. PULMONIC VALVE: Structurally normal valve. Doppler: There is trivial, less than 1+ regurgitation. AORTA: The aorta is poorly visualized and normal. PULMONARY ARTERY: Main pulmonary artery: Normal. PERICARDIUM: There is no pericardial effusion. SYSTEMIC VEINS: Not well visualized. Measurements Left ventricle Value Reference GLS, 2D 18.05 % --------- LV ID, ED 5.2 cm 4.2 - 5.8 LV ID, ES 3.2 cm 2.5 - 4.0 LV ID/bsa, ED 2.5 cm/m^2 2.2 - 3.0 LV ID/bsa, ES 1.5 cm/m^2 1.3 - 2.1 LV PW thickness, ED (H) 1.1 cm 0.6 - 1.0 LV PW/LV ID ratio, ED 0.22 --------- LV wall mass (H) 220 g 96 - 200 LV wall mass/bsa (H) 105 g/m^2 50 - 102 Stroke volume/bsa, 1-p A2C 42.4 ml/m^2 --------- LV end-diastolic volume, 1-p A4C (H) 245 ml 69 - 185 LV end-systolic volume, 1-p A4C 75 ml 22 - 78 LV end-diastolic volume, 2-p (H) 197 ml 62 - 150 LV end-systolic volume, 2-p (H) 68 ml 21 - 61 LV ejection fraction, 2-p 66 % 52 - 72 Ventricular septum Value Reference IVS thickness, ED (H) 1.1 cm 0.6 - 1.0 LVOT Value Reference LVOT ID, A-P 2.1 cm --------- LVOT mean velocity, S 0.6 m/sec --------- LVOT peak gradient, S 3 mm Hg --------- Stroke volume (SV), LVOT DP 71 ml --------- Stroke index (SV/bsa), LVOT DP 34 ml/m^2 --------- Aortic valve Value Reference Aortic valve peak velocity, S 3.6 m/sec --------- Aortic valve mean velocity, S 2.6 m/sec --------- Aortic mean gradient, S 29 mm Hg --------- Aortic peak gradient, S 52 mm Hg --------- DI 0.25 --------- Aortic valve area, VTI 0.8 cm^2 --------- Aortic valve area/bsa, VTI 0.4 cm^2/m^2 --------- Aortic regurg pressure half-time 561 ms --------- Left atrium Value Reference LA volume/bsa, ES, 2-p (H) 37 ml/m^2 16 - 34 Mitral valve Value Reference Mitral E-wave peak velocity 0.5 m/sec --------- Mitral A-wave peak velocity 0.9 m/sec --------- Mitral deceleration time 365 ms --------- Mitral E/A ratio, peak 0.6 --------- Tricuspid valve Value Reference Tricuspid regurg peak velocity 2.5 m/sec <=2.8 Tricuspid peak RV-RA gradient 26 mm Hg --------- Right atrium Value Reference RA area, ES, A4C 15 cm^2 10 - 18 Right ventricle Value Reference RV ID, minor axis, ED, A4C mid 3.2 cm 1.9 - 3.5 TAPSE, 2D 2.4 cm 1.7 - 3.1 Legend: (L) and (H) neftali values outside specified reference range. Electronically signed by Chi Wilder MD 08/08/2020 13:51 Prior Signatures: [facility] Work Phone: [facility], [facility] Incoming Cardiology Results From [facility] - 08/08/2020 1:51 PM EST TRANSTHORACIC ECHOCARDIOGRAM PATIENT: Venancio Gonsalves STUDY DATE: 08/08/2020 : 1955 AGE: 65 HT/WT: 175.3 cm (69 88 kg in) (193.6 lb) GENDER: M BP: 129 / 99 LOCATION: [facility] STATUS: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 Phone: Comment on above: Expected: 03/31/2023 (Approximate), Expires: 03/31/2024 Start: 03-31-2023 End: 03-31-2023 Patient encounter procedure [facility] [address] [facility] Start: 03-01-2023 End: 03-01-2023 Patient encounter procedure 03/01/2023 10:00 AM EDT Appointment [facility] [address] [facility] [address] [place] [phone] Guera Gonzalez MD [address] [address] [facility] [address] [facility] Start: 02-14-2023 End: 02-15-2024 PAP therapy PAP therapy Respiratory Care Routine Obstructive sleep apnea Expected: 02/14/2023 (Approximate), Expires: 02/15/2024 [facility] [employer] Work Phone: Comment on above: Expected: 02/14/2023 (Approximate), Expires: 02/15/2024 Start: 01-28-2023 COVID-19 Vaccine () COVID-19 Vaccine () [facility] Start: 01-28-2023 Influenza vaccination Influenza Vacc ine (#1) [facility] [employer] Start: 01-20-2023 End: 01-21-2024 Sleep study with pap titration Sleep study with pap titration Sleep Center Routine Obstructive sleep apnea Expected: 01/20/2023 (Approximate), Expires: 01/21/2024 [facility] [employer] Work Phone: Comment on above: Expected: 01/20/2023 (Approximate), Expires: 01/21/2024 Start: 01-20-2023 End: 01-20-2023 Patient encounter procedure 01/20/2023 11:30 AM EDT Office Visit [facility] [facility] [address] [facility] [address] [place] [phone] Alma Delia Dale MD [address] [place] [address] [facility] Start: 10-12-2022 End: 10-12-2022 Patient encounter procedure 10/12/2022 Office Visit Cardiology Guera Gonzalez MD [address] [place] [id number] [facility] Start: 07-29-2022 End: 07-30-2023 Home sleep test Home sleep test Sleep Center Routine Sleep disorder Expected: 07/29/2022 (Approximate), Expires: 07/30/2023 [facility] [employer] Work Phone: Comment on above: Expected: 07/29/2022 (Approximate), Expires: 07/30/2023 Start: 06-21-2022 COVID-19 Vaccine (5 - Booster for Moderna series) COVID-19 Vaccine (5 - Booster for Moderna series) [facility] Start: 06-21-2022 COVID-19 Vaccine (5 - Moderna series) COVID-19 Vaccine (5 - Moderna series) [facility] Start: 06-17-2022 End: 06-17-2023 Home sleep test Home sleep test Sleep Center Routine Primary hypertension Paroxysmal atrial fibrillation (CMS/HCC) (HCC) Snoring Expected: 06/17/2022 (Approximate), Expires: 06/17/2023 [facility] Work Phone: Comment on above: Expected: 06/17/2022 (Approximate), Expires: 06/17/2023 Start: 06-17-2022 End: 06-17-2022 Patient encounter procedure [facility] [address] [facility] Start: 05-30-2022 ADVANCE DIRECTIVE DISCUSSION ADVANCE DIRECTIVE DISCUSSION [facility] Start: 05-30-2022 DEPRESSION ASSESSMENT DEPRESSION ASS ESSMENT [facility] Start: 04-13-2022 Pneumococcal Vaccine : 50+ (2 of 2 - PCV) Pneumococcal Vaccine: 50+ (2 of 2 - PCV) [facility] Start: 04-13-2022 Pneumococcal Vaccine : 50+ Years (2 of 2 - PCV) Pneumococcal Vaccine: 50+ Years (2 of 2 - PCV) [facility] Start: 04-13-2022 Pneumococcal Vaccine : 65+ Years (2 of 2 - PCV) Pneumococcal Vaccine: 65+ Years (2 of 2 - PCV) [facility] Start: 01-28-2022 Influenza vaccination INFLUENZA (#1) [facility] Start: 12-28-2021 Influenza vaccination Flu vaccine (# 1) [facility] Start: 08-09-2021 Lipid panel [facility] Start: 01-28-2021 Influenza vaccination S [facility] Work Phone: Start: 01-22-2021 COVID-19 Vaccine (3 - Booster for Moderna series) COVID-19 Vaccine (3 - Booster for Moderna series) [facility] Start: 10-17-2020 COVID-19 VACCINE (3 - Booster for Moderna series) COVID-19 VACCINE (3 - Booster for Moderna series) [facility] Start: 08-11-2020 Annual Wellness Visi t (AWV) Annual Wellness Visit (AWV) [facility] Start: 2020 Pneumococcal 65+ yea rs Vaccine (1 - PCV) Pneumococcal 65+ years Vaccine (1 - PCV) [facility] Start: 2020 Pneumococcal 65+ yea rs Vaccine (1 of 1 - PPSV23) Pneumococcal 65+ years Vaccine (1 of 1 - PPSV23) [facility] Work Phone: Start: 2020 PNEUMOCOCCAL: 65+ (1 - PCV) PNEUMOCOCCAL: 65+ (1 - PCV) [facility] Start: 01-29-2020 Influenza vaccination Flu vaccine (# 1) [place] Start: 01-28-2019 Influenza vaccination Flu vaccine (# 1) [place] Start: 12-15-2018 Colonoscopy COLONOSCOPY [facility] Start: 12-15-2018 COLORECTAL CANCER SCREENING COLORECTAL CANCER SCREENING [facility] Start: 12-15-2018 Screening for malign ant neoplasm of colon [facility] Start: 2015 RSV Immunization age d 60 or older (1 - 1-dose 60+ series) RSV Immunization aged 60 or older (1 - 1-dose 60+ series) [facility] Start: 2015 RSV Immunization for Adults (1 - Risk 60-74 years 1-dose series) RSV Immunization for Adults (1 - Risk 60-74 years 1-dose series) [facility] Start: 2010 PROSTATE CANCER SCREENING DISCUSSION PROSTATE CANCER SCREENING DISCUSSION [facility] Start: 2010 Prostate specific antigen measurement Prostate Cancer Screening Discussion [facility] Start: 2005 Colon cancer screen colonoscopy Colon cancer screen colonoscopy [place] Start: 2005 Screening for malign ant neoplasm of colon Colon cancer screen colonoscopy [place] Start: 2005 Shingles Vaccine (1 of 2) Shingles Vaccine (1 of 2) [facility] Start: 2005 SHINGRIX VACCINE (1 of 2) SHINGRIX VACCINE (1 of 2) [facility] Start: 2005 Zoster Vaccines (1 o f 2) Zoster Vaccines (1 of 2) [facility] Start: 2000 COLOGUARD (FIT-DNA) COLOGUARD (FIT-D NA) [facility] Start: [address] COLONOGRAPHY [facility] Start: 2000 DIABETES SCREEN DIABETES SCREEN [facility] Start: 2000 FECAL OCCULT BLOOD FECAL OCCULT BLOO D [facility] Start: 2000 Screening for malign ant neoplasm of colon [facility] Start: 2000 [facility] Start: 1995 Diabetes screen Diabetes screen [place], [place] Start: 1995 Lipid panel Lipid screen [place], [place] Start: 1995 Lipid screen Lipid screen [place] Start: 1990 LIPID SCREEN LIPID SCREEN [facility] Start: 1974 DTaP/Tdap/Td vaccine (1 - Tdap) DTaP/Tdap/Td vaccine (1 - Tdap) [facility] Start: 1974 DTaP/Tdap/Td Vaccine s (1 - Tdap) DTaP/Tdap/Td Vaccines (1 - Tdap) [facility] Start: 1974 Urine microalbumin profile [facility] Start: 1973 Anxiety Screening Anxiety Screening [facility] Start: 1973 Depression Screening Depression Scre ening [facility] Start: 1973 Diabetes mellitus screening Diabetes Screening [facility] Start: 1973 Hepatitis C screening [facility] Start: 1973 HEPATITIS C SCREENING HEPATITIS C [facility] Start: 1971 COVID-19 Vaccine (1) COVID-19 Vaccin e (1) [facility] Work Phone: Start: 1970 HIV screen HIV screen [place], [place] Start: 1970 [facility] [place] [place] Start: 1967 COVID-19 Vaccine (1) COVID-19 Vaccin e (1) [facility] Work Phone: Start: 1967 Depression Screen Depression Screen [facility] Start: 1967 Depression Screening Depression Scre ening [facility] Start: 1966 DTaP/Tdap/Td vaccine (1 - Tdap) DTaP/Tdap/Td vaccine (1 - Tdap) [place] Start: 1965 Lipid panel Lipid screen [facility] Work Phone: Start: 1961 Pneumococcal Vaccine : 65+ Years (1 - PCV) Pneumococcal Vaccine: 65+ Years (1 - PCV) [facility] Start: 1961 Pneumococcal Vaccine : 65+ Years (1 of 2 - PCV) Pneumococcal Vaccine: 65+ Years (1 of 2 - PCV) [facility] Start: 01-03-1956 COVID-19 VACCINE (#1) COVID-19 VACCI NE (#1) [facility] Start: 1955 Hepatitis B Vaccines (1 of 3 - 3-dose series) Hepatitis B Vaccines (1 of 3 - 3-dose series) [facility] Start: 1955 Hepatitis C screen Hepatitis C scree n [facility] [place] Start: 1955 Hepatitis C screening Hepatitis C sc avivaradha [facility] [place] Start: 1955 Medicare Annual Wellness (AWV) Medicare Annual Wellness (AWV) [facility] Start: 1955 Screening for malign ant neoplasm of colon [facility] ECG 12 lead - CLINIC PERFORMED ECG 12 lead - CLINIC PERFORMED CV ECG Routine Severe aortic stenosis 03/31/2023 9:50 AM EDT [employer] Work Phone: ECG 12 lead - CLINIC PERFORMED ECG 12 lead - CLINIC PERFORMED CV ECG Routine Primary hypertension 06/17/2022 9:12 AM EST [employer] Work Phone: EKG 12 lead EKG 12 lead ECG Routine As Needed until discontinued starting 08/08/2020 [employer] Work Phone: Comment on above: As Needed until disc ontinued starting 08/08/2020 End: 10-30-2020 H. pylori antigen H. pylori antigen Lab Routine Once for 1 Occurrences starting 10/30/2020 until 10/30/2020 [employer] Work Phone: Comment on above: Once for 1 Occurrenc es starting 10/30/2020 until 10/30/2020 H. pylori antigen H. pylori anti gen Lab Routine 10/30/2020 8:15 AM EDT [employer] Work Phone: Oxygen therapy [[facility] Set] [employer] Work Phone: Comment on above: Daily until disconti nued starting 08/08/2020 Daily until disconti nued starting 08/10/2020 Daily until disconti nued starting 08/11/2020 Respiratory Consult for Lung Nodule Respiratory Consult for Lung Nodule Respiratory Care Routine Daily until discontinued starting 08/08/2020 [employer] Work Phone: Comment on above: Daily until disconti nued starting 08/08/2020 [facility] Immunization Date Immunization Notes Care Provider [facility] 04-25-2023 influenza virus vacc ine, unspecified formulation Jakyvalery Delaneyle GENERAL CONTRACTOR - FORENSICS ANALYST Work Phone: [facility] [employer] 04-14-2022 influenza virus vacc ine, unspecified formulation Sadie Lange GENERAL CONTRACTOR - FORENSICS ANALYST Work Phone: [facility] [employer] 08-22-2020 Moderna SARS-CoV-2 Vaccination Sadie Lange GENERAL CONTRACTOR - FORENSICS ANALYST Work Phone: [facility] [employer] 07-25-2020 Moderna SARS-CoV-2 Vaccination Sadiekatherine Lange GENERAL CONTRACTOR - FORENSICS ANALYST Work Phone: [facility] [employer] Payers Date Payer Category Payer Self-pay 2021 Medicare supplementa l policy (as second payer) MMO MEDICARE SUPPLEMENT [id number] 2020 Medicare 2020 Private Health Insurance MMO MED ICARE SUPPLEMENT [id number] 2020 Unknown [id number] 2020 Unknown 2020 Medicare [id number] 1955 Unknown [id number] Unknown [id number] Social History Date Type Detail Facility Start: 05-05-2019 End: 06-10-2022 Tobacco smoking status [facility] Never smoker [facility] Start: 05-05-2019 Alcohol intake Ex-drinker (finding) [place] Sex Assigned At Not on file [place] Start: 05-05-2019 End: 06-10-2022 Tobacco use and exposure Never used [place] Start: 1955 Sex Assigned At Male [place] Start: 08-08-2020 End: 10-12-2024 Alcohol intake Current drinker of alcohol (finding) [facility] Work Phone: Start: 08-08-2020 Alcohol Comment 3 times per we ek with dinner [facility] Work Phone: Start: 08-09-2020 Alcohol Comment ~ 3 times per week with dinner [facility] Work Phone: Start: 02-28-2022 End: 02-07-2023 Exposure to SARS-CoV-2 (event) Not sure [facility] Work Phone: Start: 08-26-2020 End: 10-12-2024 Alcohol intake [facility] Work Phone: Start: 08-09-2020 History SDOH Alcohol Frequency 99 [facility] Work Phone: Start: 08-21-2020 Alcohol Comment occ. [facility] Start: 10-12-2022 End: 10-12-2024 Tobacco use panel [facility] Work Phone: Start: 08-16-2020 Gender identity Identifies as male gender (finding) [facility] Start: 08-16-2020 Sexual orientation Heterosexual (fin ding) [facility] Start: 04-14-2023 Alcohol Comment per week [facility] Start: 12-28-2021 Sex Male (finding) [facility] He alth Adult Depression Screening Assessment 0 [facility] Work Phone: Medical Equipment Procedure Code Equipment Code Equipment Origin al Text Equipment Identifier Dates Valve Aortic Edw ards Tiffanie 3 Commander [id number] Mm Delivery System - [id number] Start: 05-10-2022 Device Perclose Prostyle Suture-Mediated Closure And Repair System - 1-Perclose Prostyle Device, 1-Perclose Prostyle Suture Madonna, 1-Perclose Snared - [id number] Start: 05-10-2022 Clinical Notes 08-21-2020 to 10-12-2024 Alma Delia Dale MD - 10/12/2024 7:20 AM EDTTelephone Encounter - Lauri Lemus DPM - 07/17/2024 9:35 AM ESTTelephone Encounter - Lauri Lemus DPM - 07/17/2024 9:35 AM EST Note Date & Type Note Facility 10-12-2024 History of Presen t illness Narrative Images from the original note were not included. [facility] [address] [place] [address] [facility] [address] Dept: [phone] Dept Loc: [phone] Alma Delia Dale MD CHIEF COMPLAINT: Chief Complaint Patient presents with Follow-up Sleep Apnea HISTORY OF PRESENT ILLNESS: The patient is a 67 y.o. person who presents with sleep apnea. Per report today, the patient is wearing the positive airway pressure every night. The mask is not leaking. The patient is sleeping through the night with the mask on. The patient reports that the mask refreshing sleep. I reviewed the on-line data from the patient's device today. It reports Venancio Gonsalves 09/12/2024 - 10/11/2024 : 1955 Age: 69 years Gender: Male [facility] - [phone] [facility], [address] Compliance Report Compliance Payor Standard Usage 09/12/2024 - 10/11/2024 Usage days 30/30 days (100%) >= 4 hours 30 days (100%) < 4 hours 0 days (0%) Usage hours 240 hours 35 minutes Average usage (total days) 8 hours 1 minutes Average usage (days used) 8 hours 1 minutes Median usage (days used) 8 hours 6 minutes Total used hours (value since last reset - 10/11/2024) 4,727 hours AirSense 11 AutoSet Serial number [id number] Mode CPAP Set pressure 9 cmH2O EPR Fulltime EPR level 2 Therapy Leaks - L/min Median: 0.7 95th percentile: 13.5 Maximum: 21.8 Events per hour AI: 0.1 HI: 0.1 AHI: 0.2 Apnea Index Central: 0.0 Obstructive: 0.1 Unknown: 0.0 RERA Index 0.1 Eliezer-Noguera respiration (average duration per night) 0 minutes (0%) He denies PLMs. He ris seeing Dr. Vences and is going to undergo a procedure to reduce the size of his turbinates. Past Medical History: has a past medical history of Aortic stenosis, Atrial fibrillation (HCC), Disc degeneration, lumbar, GERD (gastroesophageal reflux disease), Heart disease (2020), Heart murmur (5 years old), Herniation of lumbar intervertebral disc with radiculopathy (2018), Hyperlipidemia, Hypertension (2020), Skin cancer (2016), and Snoring (2018). Past Surgical History: has a past surgical history that includes Colonoscopy (12/15/2017); Cardiac procedure (Right, 08/11/2020); CTA HEART CORONARY ANGIOGRAM WITH PROV FFR-CT (04/20/2022); Cardiac catheterization (N/A, 05/10/2022); and Aortic valve replacement (05/10/2022). Medications: Current Outpatient Medications: amLODIPine (Norvasc) 5 MG tablet, TAKE 1 TABLET BY MOUTH EVERY DAY, Disp: 90 tablet, Rfl: 3 atorvastatin (Lipitor) 40 MG tablet, TAKE 1 TABLET BY MOUTH EVERY DAY NIGHTLY, Disp: 90 tablet, Rfl: 1 Eliquis 5 MG tablet, TAKE 1 TABLET BY MOUTH TWICE A DAY, Disp: 180 tablet, Rfl: 3 ipratropium (Atrovent) 0.03 % nasal spray, Administer 2 sprays into each nostril Nightly., Disp: , Rfl: losartan (Cozaar) 25 MG tablet, TAKE 1 TABLET BY MOUTH EVERY DAY, Disp: 90 tablet, Rfl: 3 pantoprazole (ProtoNix) 20 MG EC tablet, Take 20 mg by mouth every morning (before breakfast). Do not crush, chew, or split., Disp: , Rfl: cetirizine (ZyrTEC) 10 MG tablet, Take 10 mg by mouth daily., Disp: , Rfl: clobetasol (Temovate) 0.05 % ointment, Apply topically 2 times daily., Disp: , Rfl: pantoprazole (ProtoNix) 40 MG EC tablet, Take 40 mg by mouth daily. (Patient not taking: Reported on 10/12/2024), Disp: , Rfl: Allergies: Sulfa antibiotics and Penicillins Social History: Social History Socioeconomic History Marital status: Spouse name: Not on file Number of children: Not on file Years of education: Not on file Highest education level: Not on file Occupational History Not on file Tobacco Use Smoking status: Never Smokeless tobacco: Never Vaping Use Vaping status: Never Used Substance and Sexual Activity Alcohol use: Yes Alcohol/week: 3.0 standard drinks of alcohol Types: 3 Glasses of wine per week Comment: per week Drug use: Never Sexual activity: Not on file Other Topics Concern Not on file Social History Narrative Not on file Social Drivers of Health Financial Resource Strain: Not on file Food Insecurity: Not on file Transportation Needs: Not on file Physical Activity: Not on file Stress: Not on file Social Connections: Not on file Intimate Partner Violence: Not on file Housing Stability: Not on file Family History: Family History Problem Relation Name Age of Onset Other ([address]702) Father Nilesh Rapid HR Diabetes type II Father Nilesh REVIEW OF SYSTEMS: Review of Systems Constitutional: Negative for appetite change, chills, diaphoresis, fever and unexpected weight change. HENT: Negative for dental problem and mouth sores. Eyes: Negative for discharge and itching. Respiratory: Negative for chest tightness. Cardiovascular: Negative for chest pain and leg swelling. Gastrointestinal: Negative for rectal pain and vomiting. Endocrine: Negative for polydipsia, polyphagia and polyuria. Genitourinary: Negative for decreased urine volume, flank pain and genital sores. Musculoskeletal: Negative for arthralgias. Skin: Negative for color change. Allergic/Immunologic: Negative for food allergies and immunocompromised state. Neurological: Hypersomnia Hematological: Negative for adenopathy. Does not bruise/bleed easily. Psychiatric/Behavioral: Negative for agitation, behavioral problems, decreased concentration, sleep disturbance and suicidal ideas. PHYSICAL EXAM: Vitals: BP (!) 154/90 (BP Location: Right arm, Patient Position: Sitting, BP Cuff Size: Large adult) Pulse 64 Ht 5' 8 (1.727 m) Wt 216 lb 3.2 oz (98.1 kg) BMI 32.87 kg/m General Appearance: Patient is in no apparent distress. Head is normocephalic, atraumatic Cardiovascular: Regular rate and rhythm. No heart murmurs. No carotid bruit Neurologic: Mentation: Alert and oriented x 3 to person, place and time. Speech and Language: Speech and language normal Concentration and Attention: Concentration normal Memory: Memory normal Fund of Knowledge: Fund of knowledge normal Cranial Nerves: II, III, IV, V, , VII, VIII, IX, X, XI, XII tested and were intact including fundoscopic exam (optic discs) and visual field to confrontation. Motor: Strength:Strength 5 out of 5 with normal tone Alternating Movements: Normal Cogwheel Rigidity: None Tone: Tone is normal Tremor / Involuntary Movements: None Deep Tendon Reflexes: 1 out of 4 symmetrical in all four limbs. Coordination: Normal coordination upper and lower extremities DATA Home Sleep Apnea Testing (HSAT) Report Patient Name: Venancio Gonsalves Study Date: 09/28/2022 : 1955 Study Location: [facility] Referring Provider: Sadie Molina [facility] [id number] Reading Physician: Stefanie Bah The patient is a 67 year-old Male who is 5' 8 and weighs 203.0 lbs. His BMI equals 31.1. Sleep History: EDS, Snoring ESS: 2 Current medications include: Amlodipine, ASA, Atorvastatin, Protonix, Metoprolol Medical history includes: GERD, HTN, High cholesterol Procedure This was an unattended study performed using an [employer] device. The patient received instruction on use of the device by a registered medical lab technologist. Monitored parameters included: airflow via nasal pressure transducer, chest and abdominal effort via RIP belts, oxygen saturation via pulse oximetry, heart rate, snoring, and body position. The study was deemed technically adequate unless otherwise noted. Scoring Methodology Apneas were scored when there was an absence of airflow > 10 seconds. Hypopneas were scored based off a > 30% reduction in airflow amplitude with a 4% oxygen desaturation for > 10 seconds, in accordance with published AASM and/or CMS guidelines. Study Overview Sleep is assumed for the entire study. Monitoring time = total recording time minus periods of artifact and time the patient was assumed to be awake based on body position, other signal sensors, and/or respiratory pattern. Scoring of the study is based off monitoring time. Recording Time: 547.7 min. Monitoring Time: 531.0 min. Analysis Start: 09:30:10 PM Supine Time: 213.5 min. Analysis Stop: 06:20:32 AM Respiratory Events Respiratory event index (ESSIE) = total number of respiratory events x 60/monitoring time. ESSIE is a surrogate for AHI. Snoring was not present. Count Index Time ESSIE Obstructive Apnea 8 0.9 Supine 213.5 min. 11.8 Mixed Apnea - - Off Supine 317.5 min. 6.2 Central Apnea - - Total 531.0 min. 8.5 Total Apneas 8 0.9 Hypopneas 67 7.6 Total Apneas and Hypopneas 75 8.5 Page 2 Patient Name: Venancio Gonsalves Study Date: 09/28/2022 : 1955 Oxygen Saturation Average SpO2: 93.2% Desaturation Count: 84 Minimum SpO2: 84.0% Desaturation Index: 9.5 Maximum SpO2: 98.0% Time Spent <=88% SpO2: 3.2 min. (0.6%) Cardiac Summary Average Pulse Rate 61.4 bpm Minimum Pulse Rate 44.0 bpm Maximum Pulse Rate 92.0 bpm Impression: This study demonstrates mild obstructive sleep apnea. AHI 9. Recommendations: Treatments for mild sleep apnea include PAP, oral appliances, and/or conservative therapies. If there is daytime dysfunction and/or comorbid metabolic syndrome disorders; would recommend an in-lab PAP titration study to control this patient's obstructive sleep apnea. The patient should be counseled regarding the metabolic and cardiac risks of untreated sleep apnea. The patient should refrain from the operation of heavy machinery and driving if hypersomnolence is present. Avoid alcohol, sedatives, and hypnotics as these can worsen obstructive events. Positional therapy (avoiding supine sleep) should be considered. If indicated, treatment of nasal obstruction should be considered. Recommend maintenance of ideal body weight to assist with overall health. Continue follow-up with ordering provider. - Diagnoses: Obstructive Sleep Apnea Syndrome: G47.33 Procedure: Type 3 portable monitor: 93673 , acknowledging review of the raw data in its entirety. Range (%) Time in range (min) Time in range (%) 0.0 - 88.0 3.2 0.6% CBC: Lab Results Component Value Date WBC 4.8 05/04/2024 RBC 5.04 05/04/2024 HGB 15.2 05/04/2024 HCT 46.5 05/04/2024 MCV 92.3 05/04/2024 MCH 30.2 05/04/2024 MCHC 32.7 05/04/2024 RDW 13.0 05/04/2024 PLT 214 05/04/2024 PLT 169 05/20/2022 MPV 10.2 05/04/2024 CMP: Lab Results Component Value Date NA 137 04/08/2023 K 4.3 04/08/2023 CL 104 04/08/2023 CO2 28 05/04/2024 BUN 11 05/04/2024 CREATININE 0.82 05/04/2024 AGRATIO 2.3 05/04/2024 GLUCOSE 99 05/04/2024 PROT 6.9 05/04/2024 CALCIUM 9.6 05/04/2024 BILITOT 1.0 05/04/2024 ALKPHOS 63 05/04/2024 AST 19 05/04/2024 ALT 20 05/04/2024 BMP: Lab Results Component Value Date NA 137 04/08/2023 K 4.3 04/08/2023 CL 104 04/08/2023 CO2 28 05/04/2024 BUN 11 05/04/2024 CREATININE 0.82 05/04/2024 CALCIUM 9.6 05/04/2024 GLUCOSE 99 05/04/2024 PT/INR: No results found for: PROTIME, INR PTT: No results found for: APTT, PTT[APTT} FLP: Lab Results Component Value Date TRIG 72 04/08/2023 HDL 57 04/08/2023 LDLCALC 109 (H) 04/08/2023 TSH: Lab Results Component Value Date TSH 0.646 05/20/2022 VITAMIN B12: No results found for: [id number] FERRITIN: No results found for: FERRITIN ---- No results found for: PHENYTOIN, PHENOBARB, VALPROATE, CBMZ No components found for: TOPIRANo results found for: OXCARBAZE, OXCARB @LASTAPPOINTMENTTHISPROV@ ECG 12 lead - CLINIC PERFORMED Sinus Rhythm -First degree A-V block Alexus = 236 BORDERLINE RHYTHM @RESULTINGLABINFO@ No results found for: LEVETIRACETA, FERRITIN, CRP, LORRIE, ANCA No results found for: MICAH, IMMUNOGLOBUL, OLIGOBANDS No results found for: YQE79LP, HEPCAB No results found for: CRP, ANATITER, ANCA Patient Name: Venancio Gonsalves Study Date: 02/07/2023 Study Location: [facility]: 1955 Referring Physician: Alma Delia Dale ONCOLOGY ACCOUNT SPECIALIST#: [id number] Reading Physician: Alma Delia Dale Indications for Polysomnography The patient is a 67 year-old Male who is 5' 8 and weighs 203.0 lbs. His BMI equals 31.1. ESS was 2. A full night PAP titration was performed. Current medications include: Atorvastatin, Amlodipine, Eliquis, Pantoprazole, ASA. Medical history includes: Aortic stenosis, atrial fibrillation disc degeneration (lumbar), GERd, heart murmur, herniation of lumbar intervertebral disc with radiculopathy, hyperlipidemia, hypertension, skin cancer. Polysomnogram Data A full night polysomnogram recorded the standard physiologic parameters including EEG (8), EOG (2), chin EMG (2), anterior tibial EMG (2), EKG, nasal pressure monitor, and nasal and oral airflow. Respiratory parameters of chest and abdominal movements were recorded with respiratory inductance plethysmography belts. Oxygen saturation was recorded by pulse oximetry. Body position was recorded by analysis of video monitoring. The study was reviewed in full to ensure the accuracy and quality of the data. Hypopneas were scored with a 4% desaturation in accordance with published AASM and/or CMS guidelines. Treatment: The patient was titrated at pressures ranging from 4* cm/H20 up to 8* cm/H20. The last pressure used in the study was 8* cm/H20 with supplemental oxygen at 0. Sleep Architecture The total recording time of the polysomnogram was 468.3 minutes. The total sleep time was 232.5 minutes. Lights out was at 09:50:04 PM and lights on was at 05:38:23 AM. The patient spent 2.2% of total sleep time in Stage N1, 35.5% in Stage N2, 38.9% in Stages N3, and 23.4% in REM. Sleep latency was 30.1 minutes. REM latency was 207.5 minutes. Sleep Efficiency was 49.6%. Wake after Sleep Onset time was 205.5 minutes. The patient spent 0.0% of the sleep time in the supine position. There were 52 arousals, resulting in an arousal index of 13.4. Respiratory Events The polysomnogram revealed a presence of 0 obstructive, 3 central, and 0 mixed apneas resulting in an Apnea index of 0.8 events per hour. There were 7 hypopneas (>=4% desat) resulting in an Apnea\Hypopnea Index (AHI >=4% desat) of 2.6 events per hour. Mean oxygen saturation was 95.0%. The lowest oxygen saturation during sleep was 88.0%. Time spent <=88% oxygen saturation was 0.1 minutes (0.0%). Limb Activity There were 60 total limb movements recorded, of this total, 60 were classified as PLMs. PLM index was 15.5 per hour and PLM associated with Arousals index was 5.2 per hour. Cardiac Summary The average pulse rate was 58.5 bpm. The minimum pulse rate was 48.0 bpm while the maximum pulse rate was 95.0 bpm. Impression: 1. CPAP at a setting of 9 cmH2O eliminated apneas and hypopneas and maintained oxygen saturation at 92% or higher. 2. Periodic limb movements with a very mild PLM arousal index. Recommendations: 1. CPAP at setting of 9 cmH2O using an Airfit N30 size medium full face mask, heated humidity, and a ramp of 20 minutes. 2. Clinical correlation regarding the periodic limb movements. Diagnoses: Obstructive Sleep Apnea Syndrome: G47.33 Periodic Limb Movement Disorder: G47.61 Procedure: Titration Study: 78938 SSMENT AND PLAN: Diagnosis Plan 1. Obstructive sleep apnea CPAP 2. Chronic nasal congestion He is compliant and the PAP therapy is working. If the procedure works, then he would like to see dental sleep med doctor for dental appliance. I spent 30 minutes caring for this patient today, reviewing labs and records, seeing the patient, documenting in the record and arranging for studies. documented in this encounter [facility] 07-17-2024 Telephone encounter Note Done Thanks Lauri Lemus DPM, FACFAS [facility] 07-17-2024 Miscellaneous Notes Done Thanks Lauri Lemus DPM, FACFAS The patient called in and requested a refill. I verified the pharmacy and let them to know to check with the pharmacy after 5pm. If there was a problem I would give them a call back. Danica Barrientos documented in this encounter [facility] 07-16-2024 Telephone encounter Note The patient called in and requested a refill. I verified the pharmacy and let them to know to check with the pharmacy after 5pm. If there was a problem I would give them a call back. Danica Barrientos [facility] 04-11-2024 History of Presen t illness Narrative Images from the original note were not included. [facility] [address] [facility] [address] Dept: [phone] Dept Visit type: Established : 1955 Reason for Visit: Annual Exam Assessment and Plan 1. S/P TAVR (transcatheter aortic valve replacement) 2. Primary hypertension - CBC auto differential - Comprehensive metabolic panel 3. Other hyperlipidemia - Lipid panel This is a very pleasant 68y/o male with aortic stenosis s/p TAVR in 04/2022 with a 26mm tiffanie S3 valve. Will continue eliquis for stroke prevention (CHADSVASC score ~2). I have not changed his statin or antihypertensive regimen today. Will get surveillance echocardiograms every 2-3 years. Otherwise he should remain as active as possible and I will see him back in one year, sooner if needed. It was a pleasure seeing your patient in the office today. Please do not hesitate to call me with any questions. Follow up in about 1 year (around 04/11/2025). Subjective HPI Venancio Gonsalves is a 68 yr old male with hx of HTN, HPL, GERD, lumbar disc disease, and severe aortic stenosis s/p femoral TAVR with 26 mm Tiffanie S3 valve 04/2022. He also has paroxysmal afib, picked up on a monitor after his TAVR. He is on eliquis. Most recent echo done 03/2023 showed normal EF, well functioning valve, mean gradient 9mmHg. Venancio Gonsalves is here for routine follow up. he Is doing well, having no cardiac symptoms. Review of Systems Constitutional: Negative for activity change, chills, diaphoresis, fatigue and fever. HENT: Negative for nosebleeds and trouble swallowing. Eyes: Negative for discharge and visual disturbance. Respiratory: Negative for apnea, cough, chest tightness, shortness of breath and wheezing. Cardiovascular: Negative for chest pain, palpitations and leg swelling. Gastrointestinal: Negative for abdominal distention, abdominal pain, blood in stool, diarrhea, nausea and vomiting. Endocrine: Negative for cold intolerance and heat intolerance. Genitourinary: Negative for hematuria. Musculoskeletal: Negative for gait problem and myalgias. Skin: Negative for color change and rash. Neurological: Negative for dizziness, seizures, syncope, facial asymmetry, speech difficulty, weakness, light-headedness, numbness and headaches. Hematological: Does not bruise/bleed easily. Psychiatric/Behavioral: Negative for dysphoric mood. Allergies Allergen Reactions Sulfa Antibiotics Other reaction(s): GI Upset Nausea. Penicillins Rash Outpatient Medications Prior to Visit Medication Sig Dispense Refill amLODIPine (Norvasc) 5 MG tablet TAKE 1 TABLET BY MOUTH EVERY DAY 90 tablet 3 atorvastatin (Lipitor) 40 MG tablet TAKE 1 TABLET BY MOUTH EVERY DAY NIGHTLY 90 tablet 1 Eliquis 5 MG tablet TAKE 1 TABLET BY MOUTH TWICE A DAY 180 tablet 3 ipratropium (Atrovent) 0.03 % nasal spray Administer 2 sprays into each nostril Nightly. losartan (Cozaar) 25 MG tablet TAKE 1 TABLET BY MOUTH EVERY DAY 90 tablet 1 pantoprazole (ProtoNix) 40 MG EC tablet Take 40 mg by mouth daily. cetirizine (ZyrTEC) 10 MG tablet Take 10 mg by mouth daily. clobetasol (Temovate) 0.05 % ointment Apply topically 2 times daily. No facility-administered medications prior to visit. Past Medical History: Diagnosis Date Aortic stenosis Atrial fibrillation (HCC) Disc degeneration, lumbar GERD (gastroesophageal reflux disease) Heart murmur 5 years old Herniation of lumbar intervertebral disc with radiculopathy 2019 L5-S1 (right side). Comprehensive pain management. Hyperlipidemia Hypertension 2020 Skin cancer 2016 Social History Tobacco Use Smoking status: Never Smokeless tobacco: Never Substance Use Topics Alcohol use: Yes Alcohol/week: 3.0 standard drinks of alcohol Types: 3 Glasses of wine per week Comment: per week Past Surgical History: Procedure Laterality Date AORTIC VALVE REPLACEMENT 05/10/2022 CARDIAC CATHETERIZATION N/A 05/10/2022 Performed by Guera Gonzalez MD at [facility] OR CARDIAC PROCEDURE Right 08/11/2020 COLONOSCOPY 12/15/2017 CT CORONARY CTA WITH PROV FFR-CT 04/20/2022 CT ANGIOGRAM TAVR 04/20/[address] [facility] [address] IMAGING Family History Problem Relation Name Age of Onset Other (68092) Father Nilesh Rapid HR Diabetes type II Father Nilesh Objective Vitals: 04/11/24 1437 04/11/24 1447 BP: (S) (!) 146/80 128/68 BP Location: Left arm Left arm Patient Position: Sitting Sitting BP Cuff Size: Adult Pulse: 80 Weight: 207 lb (93.9 kg) Height: 5' 8 (1.727 m) Physical Exam Constitutional: General: He is not in acute distress. Appearance: He is not diaphoretic. HENT: Head: Normocephalic. Nose: Nose normal. Mouth/Throat: Mouth: Mucous membranes are moist. Pharynx: No oropharyngeal exudate. Eyes: General: No scleral icterus. Right eye: No discharge. Left eye: No discharge. Neck: Thyroid: No thyromegaly. Vascular: No carotid bruit or JVD. Cardiovascular: Rate and Rhythm: Normal rate and regular rhythm. Pulses: Normal pulses. Heart sounds: Normal heart sounds. Pulmonary: Effort: Pulmonary effort is normal. Breath sounds: Normal breath sounds. Abdominal: General: Bowel sounds are normal. There is no distension. Palpations: There is no hepatomegaly. Tenderness: There is no abdominal tenderness. Musculoskeletal: General: Normal range of motion. Cervical back: Normal range of motion. Right lower leg: No edema. Left lower leg: No edema. Skin: General: Skin is warm and dry. Neurological: Mental Status: He is oriented to person, place, and time. Psychiatric: Mood and Affect: Mood normal. Behavior: Behavior normal. Data Reviewed and Summarized EF BP Date Value Ref Range Status 03/31/2023 65 55 - 100 % Final Review of tests/labs done/ordered within my specialty: EKG in office: Review of tests/labs done/ordered outside my specialty: Independent interpretation of tests: Guera Gonzalez MD documented in this encounter [facility] 10-13-2023 Telephone encounter Note Order and office notes have been faxed [facility] 10-13-2023 Miscellaneous Notes Order and office notes have been faxed Patient is not scheduled to come in for a follow up till 10/13/23. Name of caller: Valentine Contact phone number: [phone] Relationship to Patient: [facility] Provider: Dr Dale Practice: Neurology Chief Complaint/Reason for Call: [facility] is requesting verification the patient was seen in the office after 04/04/2024 along with clinical notes from the office visit. Please fax to [phone]. Best time of day caller can be reached: Any Patient advised that office/PCP has 24-48 business hours to return their call: Yes documented in this encounter [facility] 10-13-2023 History of Presen t illness Narrative Images from the original note were not included. [facility] [address] [place] [address] [facility] [address] Dept: [phone] Dept Loc: [phone] Alma Delia Dale MD CHIEF COMPLAINT: Chief Complaint Patient presents with Follow-up Sleep Apnea HISTORY OF PRESENT ILLNESS: The patient is a 67 y.o. person who presents with sleep apnea. Per report today, the patient is wearing the positive airway pressure every night. The mask is not leaking. The patient is sleeping through the night with the mask on. The patient reports that the mask is providing refreshing sleep. I reviewed the on-line data from the patient's device today. It Venancio Rivera 07/06/2023 - 10/12/2023 : 1955 Age: 68 years [facility]: [facility] [phone] [facility], [address] Compliance Report Compliance Payor Standard Usage 07/06/2023 - 10/12/2023 Usage days 99/99 days (100%) >= 4 hours 99 days (100%) < 4 hours 0 days (0%) Usage hours 798 hours 10 minutes Average usage (total days) 8 hours 4 minutes Average usage (days used) 8 hours 4 minutes Median usage (days used) 8 hours 9 minutes Total used hours (value since last reset - 10/12/2023) 1,771 hours AirSense 11 AutoSet Serial number [id number] Mode CPAP Set pressure 9 cmH2O EPR Fulltime EPR level 2 Therapy Leaks - L/min Median: 0.0 95th percentile: 8.8 Maximum: 16.2 Events per hour AI: 0.3 HI: 0.1 AHI: 0.4 Apnea Index Central: 0.1 Obstructive: 0.2 Unknown: 0.0 RERA Index 0.2 Eliezer-Noguera respiration (average duration per night) 0 minutes (0%) He denies PLMs. He reports that the Flonase and the Atrovent sprays are not clearing up his nasal congestion. He is not on cetirizine. Atrovent helped during the day, but not at night. He has tried. Past Medical History: has a past medical history of Aortic stenosis, Atrial fibrillation (HCC), Disc degeneration, lumbar, GERD (gastroesophageal reflux disease), Heart murmur (5 years old), Herniation of lumbar intervertebral disc with radiculopathy (2018), Hyperlipidemia, Hypertension (2020), and Skin cancer (2016). Past Surgical History: has a past surgical history that includes Colonoscopy (12/15/2017); Cardiac procedure (Right, 08/11/2020); CTA HEART CORONARY ANGIOGRAM WITH PROV FFR-CT (04/20/2022); Cardiac catheterization (N/A, 05/10/2022); and Aortic valve replacement (05/10/2022). Medications: Current Outpatient Medications: amLODIPine (Norvasc) 5 MG tablet, TAKE 1 TABLET BY MOUTH EVERY DAY, Disp: 90 tablet, Rfl: 3 atorvastatin (Lipitor) 40 MG tablet, Take 1 tablet by mouth Nightly., Disp: , Rfl: Eliquis 5 MG tablet, TAKE 1 TABLET BY MOUTH TWICE A DAY, Disp: 180 tablet, Rfl: 3 losartan (Cozaar) 25 MG tablet, TAKE 1 TABLET BY MOUTH EVERY DAY, Disp: 90 tablet, Rfl: 3 pantoprazole (ProtoNix) 40 MG EC tablet, Take 40 mg by mouth daily., Disp: , Rfl: cetirizine (ZyrTEC) 10 MG tablet, Take 10 mg by mouth daily., Disp: , Rfl: clobetasol (Temovate) 0.05 % ointment, Apply topically 2 times daily., Disp: , Rfl: Allergies: Sulfa antibiotics and Penicillins Social History: Social History Socioeconomic History Marital status: Spouse name: Not on file Number of children: Not on file Years of education: Not on file Highest education level: Not on file Occupational History Not on file Tobacco Use Smoking status: Never Smokeless tobacco: Never Vaping Use Vaping Use: Never used Substance and Sexual Activity Alcohol use: Yes Alcohol/week: 3.0 standard drinks of alcohol Types: 3 Glasses of wine per week Comment: per week Drug use: Never Sexual activity: Not on file Other Topics Concern Not on file Social History Narrative Not on file Social Determinants of Health Financial Resource Strain: Not on file Food Insecurity: Not on file Transportation Needs: Not on file Physical Activity: Not on file Stress: Not on file Social Connections: Not on file Intimate Partner Violence: Not on file Housing Stability: Not on file Family History: Family History Problem Relation Name Age of Onset Other (61613) Father Nilesh Rapid HR Diabetes type II Father Nilesh REVIEW OF SYSTEMS: Review of Systems Constitutional: Negative for appetite change, chills, diaphoresis, fever and unexpected weight change. HENT: Negative for dental problem and mouth sores. Eyes: Negative for discharge and itching. Respiratory: Negative for chest tightness. Cardiovascular: Negative for chest pain and leg swelling. Gastrointestinal: Negative for rectal pain and vomiting. Endocrine: Negative for polydipsia, polyphagia and polyuria. Genitourinary: Negative for decreased urine volume, flank pain and genital sores. Musculoskeletal: Negative for arthralgias. Skin: Negative for color change. Allergic/Immunologic: Negative for food allergies and immunocompromised state. Neurological: Hypersomnia Hematological: Negative for adenopathy. Does not bruise/bleed easily. Psychiatric/Behavioral: Negative for agitation, behavioral problems, decreased concentration, sleep disturbance and suicidal ideas. PHYSICAL EXAM: Vitals: BP (!) 169/93 (BP Location: Right arm, Patient Position: Sitting, BP Cuff Size: Large adult) Pulse 64 Ht 5' 8 (1.727 m) Wt 217 lb 6.4 oz (98.6 kg) BMI 33.06 kg/m General Appearance: Patient is in no apparent distress. Head is normocephalic, atraumatic Cardiovascular: Regular rate and rhythm. No heart murmurs. No carotid bruit Neurologic: Mentation: Alert and oriented x 3 to person, place and time. Speech and Language: Speech and language normal Concentration and Attention: Concentration normal Memory: Memory normal Fund of Knowledge: Fund of knowledge normal Cranial Nerves: II, III, IV, V, , VII, VIII, IX, X, XI, XII tested and were intact including fundoscopic exam (optic discs) and visual field to confrontation. Motor: Strength:Strength 5 out of 5 with normal tone Alternating Movements: Normal Cogwheel Rigidity: None Tone: Tone is normal Tremor / Involuntary Movements: None Deep Tendon Reflexes: 1 out of 4 symmetrical in all four limbs. Coordination: Normal coordination upper and lower extremities DATA Home Sleep Apnea Testing (HSAT) Report Patient Name: Venancio Gonsalves Study Date: 09/28/2022 : 1955 Study Location: [facility] Referring Provider: Sadie Molina [facility] [id number] Reading Physician: Stefanie Bah The patient is a 67 year-old Male who is 5' 8 and weighs 203.0 lbs. His BMI equals 31.1. Sleep History: EDS, Snoring ESS: 2 Current medications include: Amlodipine, ASA, Atorvastatin, Protonix, Metoprolol Medical history includes: GERD, HTN, High cholesterol Procedure This was an unattended study performed using an [employer] device. The patient received instruction on use of the device by a registered medical lab technologist. Monitored parameters included: airflow via nasal pressure transducer, chest and abdominal effort via RIP belts, oxygen saturation via pulse oximetry, heart rate, snoring, and body position. The study was deemed technically adequate unless otherwise noted. Scoring Methodology Apneas were scored when there was an absence of airflow > 10 seconds. Hypopneas were scored based off a > 30% reduction in airflow amplitude with a 4% oxygen desaturation for > 10 seconds, in accordance with published AASM and/or CMS guidelines. Study Overview Sleep is assumed for the entire study. Monitoring time = total recording time minus periods of artifact and time the patient was assumed to be awake based on body position, other signal sensors, and/or respiratory pattern. Scoring of the study is based off monitoring time. Recording Time: 547.7 min. Monitoring Time: 531.0 min. Analysis Start: 09:30:10 PM Supine Time: 213.5 min. Analysis Stop: 06:20:32 AM Respiratory Events Respiratory event index (ESSIE) = total number of respiratory events x 60/monitoring time. ESSIE is a surrogate for AHI. Snoring was not present. Count Index Time ESSIE Obstructive Apnea 8 0.9 Supine 213.5 min. 11.8 Mixed Apnea - - Off Supine 317.5 min. 6.2 Central Apnea - - Total 531.0 min. 8.5 Total Apneas 8 0.9 Hypopneas 67 7.6 Total Apneas and Hypopneas 75 8.5 Page 2 Patient Name: Venancio Gonsalves Study Date: 09/28/2022 : 1955 Oxygen Saturation Average SpO2: 93.2% Desaturation Count: 84 Minimum SpO2: 84.0% Desaturation Index: 9.5 Maximum SpO2: 98.0% Time Spent ?88% SpO2: 3.2 min. (0.6%) Cardiac Summary Average Pulse Rate 61.4 bpm Minimum Pulse Rate 44.0 bpm Maximum Pulse Rate 92.0 bpm Impression: This study demonstrates mild obstructive sleep apnea. AHI 9. Recommendations: Treatments for mild sleep apnea include PAP, oral appliances, and/or conservative therapies. If there is daytime dysfunction and/or comorbid metabolic syndrome disorders; would recommend an in-lab PAP titration study to control this patient's obstructive sleep apnea. The patient should be counseled regarding the metabolic and cardiac risks of untreated sleep apnea. The patient should refrain from the operation of heavy machinery and driving if hypersomnolence is present. Avoid alcohol, sedatives, and hypnotics as these can worsen obstructive events. Positional therapy (avoiding supine sleep) should be considered. If indicated, treatment of nasal obstruction should be considered. Recommend maintenance of ideal body weight to assist with overall health. Continue follow-up with ordering provider. - Diagnoses: Obstructive Sleep Apnea Syndrome: G47.33 Procedure: Type 3 portable monitor: 62871 , acknowledging review of the raw data in its entirety. Range (%) Time in range (min) Time in range (%) 0.0 - 88.0 3.2 0.6% CBC: Lab Results Component Value Date WBC 4.8 05/20/2022 RBC 4.73 05/20/2022 HGB 14.5 05/20/2022 HCT 43.1 05/20/2022 MCV 91.2 05/20/2022 MCH 30.8 05/20/2022 MCHC 33.7 05/20/2022 RDW 12.4 05/20/2022 PLT 169 05/20/2022 MPV 8.3 05/20/2022 CMP: Lab Results Component Value Date NA 137 04/08/2023 K 4.3 04/08/2023 CL 104 04/08/2023 CO2 23 04/08/2023 BUN 14 04/08/2023 CREATININE 0.65 (L) 04/08/2023 CREATININE 0.78 08/10/2020 GLUCOSE 105 (H) 04/08/2023 PROT 7.4 04/08/2023 CALCIUM 9.2 04/08/2023 BILITOT 1.0 04/08/2023 ALKPHOS 72 04/08/2023 AST 27 04/08/2023 ALT 26 04/08/2023 BMP: Lab Results Component Value Date NA 137 04/08/2023 K 4.3 04/08/2023 CL 104 04/08/2023 CO2 23 04/08/2023 BUN 14 04/08/2023 CREATININE 0.65 (L) 04/08/2023 CREATININE 0.78 08/10/2020 CALCIUM 9.2 04/08/2023 GLUCOSE 105 (H) 04/08/2023 PT/INR: No results found for: PROTIME, INR PTT: No results found for: APTT, PTT[APTT} FLP: Lab Results Component Value Date TRIG 72 04/08/2023 HDL 57 04/08/2023 LDLCALC 109 (H) 04/08/2023 TSH: Lab Results Component Value Date TSH 0.646 05/20/2022 VITAMIN B12: No results found for: XKJPIZOS50 FERRITIN: No results found for: FERRITIN ---- No results found for: PHENYTOIN, PHENOBARB, VALPROATE, CBMZ No components found for: TOPIRANo results found for: OXCARBAZE, OXCARB @LASTAPPOINTMENTTHISPROV@ ECG 12 lead - CLINIC PERFORMED Sinus Rhythm -First degree A-V block Alexus = 236 BORDERLINE RHYTHM @RESULTINGLABINFO@ No results found for: LEVETIRACETA, FERRITIN, CRP, LORRIE, ANCA No results found for: MICAH, IMMUNOGLOBUL, OLIGOBANDS No results found for: VBE27IN, HEPCAB No results found for: CRP, ANATITER, ANCA Patient Name: Venancio Gonsalves Study Date: 02/07/2023 [facility] 1955 Referring Physician: Alma Delia Dale ONCOLOGY ACCOUNT SPECIALIST#: [id number] Reading Physician: Alma Delia Dale Indications for Polysomnography The patient is a 67 year-old Male who is 5' 8 and weighs 203.0 lbs. His BMI equals 31.1. ESS was 2. A full night PAP titration was performed. Current medications include: Atorvastatin, Amlodipine, Eliquis, Pantoprazole, ASA. Medical history includes: Aortic stenosis, atrial fibrillation disc degeneration (lumbar), GERd, heart murmur, herniation of lumbar intervertebral disc with radiculopathy, hyperlipidemia, hypertension, skin cancer. Polysomnogram Data A full night polysomnogram recorded the standard physiologic parameters including EEG (8), EOG (2), chin EMG (2), anterior tibial EMG (2), EKG, nasal pressure monitor, and nasal and oral airflow. Respiratory parameters of chest and abdominal movements were recorded with respiratory inductance plethysmography belts. Oxygen saturation was recorded by pulse oximetry. Body position was recorded by analysis of video monitoring. The study was reviewed in full to ensure the accuracy and quality of the data. Hypopneas were scored with a 4% desaturation in accordance with published AASM and/or CMS guidelines. Treatment: The patient was titrated at pressures ranging from 4* cm/H20 up to 8* cm/H20. The last pressure used in the study was 8* cm/H20 with supplemental oxygen at 0. Sleep Architecture The total recording time of the polysomnogram was 468.3 minutes. The total sleep time was 232.5 minutes. Lights out was at 09:50:04 PM and lights on was at 05:38:23 AM. The patient spent 2.2% of total sleep time in Stage N1, 35.5% in Stage N2, 38.9% in Stages N3, and 23.4% in REM. Sleep latency was 30.1 minutes. REM latency was 207.5 minutes. Sleep Efficiency was 49.6%. Wake after Sleep Onset time was 205.5 minutes. The patient spent 0.0% of the sleep time in the supine position. There were 52 arousals, resulting in an arousal index of 13.4. Respiratory Events The polysomnogram revealed a presence of 0 obstructive, 3 central, and 0 mixed apneas resulting in an Apnea index of 0.8 events per hour. There were 7 hypopneas (?4% desat) resulting in an Apnea\Hypopnea Index (AHI ?4% desat) of 2.6 events per hour. Mean oxygen saturation was 95.0%. The lowest oxygen saturation during sleep was 88.0%. Time spent ?88% oxygen saturation was 0.1 minutes (0.0%). Limb Activity There were 60 total limb movements recorded, of this total, 60 were classified as PLMs. PLM index was 15.5 per hour and PLM associated with Arousals index was 5.2 per hour. Cardiac Summary The average pulse rate was 58.5 bpm. The minimum pulse rate was 48.0 bpm while the maximum pulse rate was 95.0 bpm. Impression: 1. CPAP at a setting of 9 cmH2O eliminated apneas and hypopneas and maintained oxygen saturation at 92% or higher. 2. Periodic limb movements with a very mild PLM arousal index. Recommendations: 1. CPAP at setting of 9 cmH2O using an Airfit N30 size medium full face mask, heated humidity, and a ramp of 20 minutes. 2. Clinical correlation regarding the periodic limb movements. Diagnoses: Obstructive Sleep Apnea Syndrome: G47.33 Periodic Limb Movement Disorder: G47.61 Procedure: Titration Study: 25598 SSMENT AND PLAN: Diagnosis Plan 1. Obstructive sleep apnea CPAP 2. Chronic nasal congestion External referral to ENT He is compliant and the PAP therapy is working. He would like to try a different mask. This has not responded to cetirizine, fluticasone, or ipratropium. Referral to ENT. I spent 30 minutes caring for this patient today, reviewing labs and records, seeing the patient, documenting in the record and arranging for studies. documented in this encounter [facility] 10-13-2023 Instructions Sofya Johnson MA - 10/13/2023 7:30 AM EDT Refer to Provider: NEFTALI VENCES Address: [address] [place] [address] documented in this encounter [facility] 09-16-2023 Telephone encounter Note Patient is not scheduled to come in for a follow up till 10/13/23. [facility] 09-16-2023 Miscellaneous Notes Patient is not scheduled to come in for a follow up till 10/13/23. Name of caller: Valentine Contact phone number: [phone] Relationship to Patient: [facility] Provider: Dr Dale Practice: Neurology Chief Complaint/Reason for Call: [facility] is requesting verification the patient was seen in the office after 04/04/2024 along with clinical notes from the office visit. Please fax to [phone]. Best time of day caller can be reached: Any Patient advised that office/PCP has 24-48 business hours to return their call: Yes documented in this encounter [facility] 09-16-2023 Telephone encounter Note Name of caller: Valentine Contact phone number: [phone] Relationship to Patient: [facility] Provider: Dr Dale Practice: Neurology Chief Complaint/Reason for Call: [facility] is requesting verification the patient was seen in the office after 04/04/2024 along with clinical notes from the office visit. Please fax to [phone]. Best time of day caller can be reached: Any Patient advised that office/PCP has 24-48 business hours to return their call: Yes [facility] 08-29-2023 Telephone encounter Note Faxed letter for CDL physical tomorrow to [facility] @ [phone], PC to patient to advise that it has been sent. [facility] 08-29-2023 Miscellaneous Notes Faxed letter for CDL physical tomorrow to [facility] @ [phone], PC to patient to advise that it has been sent. documented in this encounter [facility] 08-16-2023 Telephone encounter Note Received VM wanting to know if patient had a follow up appt on 04/04/23 and to fax info to [phone]. I called back to get further info, got bounced around to billing dept. I was given another number to call @ [phone] and keep getting hung up on. No information avail for that time period. They can call back, if needed. [facility] 08-16-2023 Miscellaneous Notes Received VM wanting to know if patient had a follow up appt on 04/04/23 and to fax info to [phone]. I called back to get further info, got bounced around to billing dept. I was given another number to call @ [phone] and keep getting hung up on. No information avail for that time period. They can call back, if needed. documented in this encounter [facility] 06-27-2023 Telephone encounter Note Pharmacy comment: REQUEST FOR 90 DAYS PRESCRIPTION. DX Code Needed. Last ov- 04/14/23 Next ov- 10/13/23 [facility] 06-27-2023 Miscellaneous Notes Pharmacy comment: REQUEST FOR 90 DAYS PRESCRIPTION. DX Code Needed. Last ov- 04/14/23 Next ov- 10/13/23 documented in this encounter [facility] 06-03-2023 Telephone encounter Note Patient has been notified [facility] 06-03-2023 Miscellaneous Notes Patient has been notified Rx sent to [facility] Name of caller: Venancio Contact phone number: [phone] Relationship to Patient: patient Provider: Dr Dale Practice: Neuro Chief Complaint/Reason for Call: Venancio's RX was sent to wrong pharmacy. Can you please resend ipratropium (Atrovent) 0.03 % nasal spray [[id number]] to the correct pharmacy [facility] in [place]. Best time of day caller can be reached: any Patient advised that office/PCP has 24-48 business hours to return their call: Yes documented in this encounter [facility] 06-03-2023 Telephone encounter Note Rx sent to [facility] 06-03-2023 Telephone encounter Note Name of caller: Venancio Contact phone number: [phone] Relationship to Patient: patient Provider: Dr Dale Practice: Neuro Chief Complaint/Reason for Call: Venancio's RX was sent to wrong pharmacy. Can you please resend ipratropium (Atrovent) 0.03 % nasal spray [[id number]] to the correct pharmacy [facility] in [place]. Best time of day caller can be reached: any Patient advised that office/PCP has 24-48 business hours to return their call: Yes [facility] 04-14-2023 History of Presen t illness Narrative Images from the original note were not included. [facility] [address] [place] [address] [facility] [address] Dept: [phone] Dept Loc: [phone] Alma Delia Dale MD Thank you for your kind request for a sleep medicine consultation on this patient. CHIEF COMPLAINT: Chief Complaint Patient presents with Follow-up HISTORY OF PRESENT ILLNESS: The patient is a 67 y.o. person who presents with sleep apnea. Per report today, the patient is wearing the positive airway pressure every night. The mask is not leaking. The patient is sleeping through the night with the mask on. The patient reports that the mask is providing refreshing sleep. I reviewed the on-line data from the patient's device today. It reports:Venancio Gonsalves 02/28/2023 - 04/13/2023 : 1955 Age: 67 years [facility]: [facility] [phone] [facility] [address] Compliance Report Compliance Payor Standard Usage 02/28/2023 - 04/13/2023 Usage days 41/45 days (91%) >= 4 hours 40 days (89%) < 4 hours 1 days (2%) Usage hours 315 hours 29 minutes Average usage (total days) 7 hours 1 minutes Average usage (days used) 7 hours 42 minutes Median usage (days used) 7 hours 52 minutes Total used hours (value since last reset - 04/13/2023) 315 hours AirSense 11 Auto[employer] Serial number [id number] Mode CPAP Set pressure 9 cmH2O EPR Fulltime EPR level 1 Therapy Leaks - L/min Median: 3.6 95th percentile: 15.3 Maximum: 25.2 Events per hour AI: 0.8 HI: 0.2 AHI: 1.0 Apnea Index Central: 0.2 Obstructive: 0.6 Unknown: 0.0 RERA Index 0.1 Eliezer-Noguera respiration (average duration per night) 0 minutes (0%) He denies PLMs Past Medical History: has a past medical history of Aortic stenosis, Atrial fibrillation (HCC), Disc degeneration, lumbar, GERD (gastroesophageal reflux disease), Heart murmur (5 years old), Herniation of lumbar intervertebral disc with radiculopathy (2018), Hyperlipidemia, Hypertension (2020), and Skin cancer (2016). Past Surgical History: has a past surgical history that includes Colonoscopy (12/15/2017); Cardiac procedure (Right, 08/11/2020); CTA HEART CORONARY ANGIOGRAM WITH PROV FFR-CT (04/20/2022); Cardiac catheterization (N/A, 05/10/2022); and Aortic valve replacement (05/10/2022). Medications: Current Outpatient Medications: amLODIPine (Norvasc) 5 MG tablet, TAKE 1 TABLET BY MOUTH EVERY DAY, Disp: 90 tablet, Rfl: 3 apixaban (Eliquis) 5 MG tablet, Take 1 tablet (5 mg) by mouth 2 times daily., Disp: 180 tablet, Rfl: 3 atorvastatin (Lipitor) 40 MG tablet, Take 1 tablet by mouth Nightly., Disp: , Rfl: cetirizine (ZyrTEC) 10 MG tablet, Take 10 mg by mouth daily., Disp: , Rfl: clobetasol (Temovate) 0.05 % ointment, Apply topically 2 times daily., Disp: , Rfl: losartan (Cozaar) 25 MG tablet, TAKE 1 TABLET BY MOUTH EVERY DAY, Disp: 90 tablet, Rfl: 3 pantoprazole (ProtoNix) 40 MG EC tablet, Take 40 mg by mouth daily., Disp: , Rfl: fluticasone (Flonase) 50 MCG/ACT nasal spray, Administer 2 sprays into each nostril every evening. Shake gently. Before first use, prime pump. After use, clean tip and replace cap., Disp: 16 g, Rfl: 12 Allergies: Sulfa antibiotics and Penicillins Social History: Social History Socioeconomic History Marital status: Spouse name: Not on file Number of children: Not on file Years of education: Not on file Highest education level: Not on file Occupational History Not on file Tobacco Use Smoking status: Never Smokeless tobacco: Never Vaping Use Vaping Use: Never used Substance and Sexual Activity Alcohol use: Yes Alcohol/week: 3.0 standard drinks of alcohol Types: 3 Glasses of wine per week Comment: per week Drug use: Never Sexual activity: Not on file Other Topics Concern Not on file Social History Narrative Not on file Social Determinants of Health Financial Resource Strain: Not on file Food Insecurity: Not on file Transportation Needs: Not on file Physical Activity: Not on file Stress: Not on file Social Connections: Not on file Intimate Partner Violence: Not on file Housing Stability: Not on file Family History: Family History Problem Relation Name Age of Onset Other ([address]70) Father Nilesh Rapid HR Diabetes type II Father Nilesh REVIEW OF SYSTEMS: Review of Systems Constitutional: Negative for appetite change, chills, diaphoresis, fever and unexpected weight change. HENT: Negative for dental problem and mouth sores. Eyes: Negative for discharge and itching. Respiratory: Negative for chest tightness. Cardiovascular: Negative for chest pain and leg swelling. Gastrointestinal: Negative for rectal pain and vomiting. Endocrine: Negative for polydipsia, polyphagia and polyuria. Genitourinary: Negative for decreased urine volume, flank pain and genital sores. Musculoskeletal: Negative for arthralgias. Skin: Negative for color change. Allergic/Immunologic: Negative for food allergies and immunocompromised state. Neurological: Hypersomnia Hematological: Negative for adenopathy. Does not bruise/bleed easily. Psychiatric/Behavioral: Negative for agitation, behavioral problems, decreased concentration, sleep disturbance and suicidal ideas. PHYSICAL EXAM: Vitals: BP (!) 152/87 (BP Location: Right arm, Patient Position: Sitting, BP Cuff Size: Adult) Pulse 65 Resp 20 Ht 5' 8 (1.727 m) Wt 217 lb 12.8 oz (98.8 kg) BMI 33.12 kg/m General Appearance: Patient is in no apparent distress. Head is normocephalic, atraumatic Cardiovascular: Regular rate and rhythm. No heart murmurs. No carotid bruit Neurologic: Mentation: Alert and oriented x 3 to person, place and time. Speech and Language: Speech and language normal Concentration and Attention: Concentration normal Memory: Memory normal Fund of Knowledge: Fund of knowledge normal Cranial Nerves: II, III, IV, V, , VII, VIII, IX, X, XI, XII tested and were intact including fundoscopic exam (optic discs) and visual field to confrontation. Motor: Strength:Strength 5 out of 5 with normal tone Alternating Movements: Normal Cogwheel Rigidity: None Tone: Tone is normal Tremor / Involuntary Movements: None Deep Tendon Reflexes: 1 out of 4 symmetrical in all four limbs. Coordination: Normal coordination upper and lower extremities DATA Home Sleep Apnea Testing (HSAT) Report Patient Name: Venancio Gonsalves Study Date: 09/28/2022 : 1955 Study Location: [facility] Referring Provider: Sadie Molina [facility] [id number] Reading Physician: Stefanie Bah The patient is a 67 year-old Male who is 5' 8 and weighs 203.0 lbs. His BMI equals 31.1. Sleep History: EDS, Snoring ESS: 2 Current medications include: Amlodipine, ASA, Atorvastatin, Protonix, Metoprolol Medical history includes: GERD, HTN, High cholesterol Procedure This was an unattended study performed using an [employer] device. The patient received instruction on use of the device by a registered medical lab technologist. Monitored parameters included: airflow via nasal pressure transducer, chest and abdominal effort via RIP belts, oxygen saturation via pulse oximetry, heart rate, snoring, and body position. The study was deemed technically adequate unless otherwise noted. Scoring Methodology Apneas were scored when there was an absence of airflow > 10 seconds. Hypopneas were scored based off a > 30% reduction in airflow amplitude with a 4% oxygen desaturation for > 10 seconds, in accordance with published AASM and/or CMS guidelines. Study Overview Sleep is assumed for the entire study. Monitoring time = total recording time minus periods of artifact and time the patient was assumed to be awake based on body position, other signal sensors, and/or respiratory pattern. Scoring of the study is based off monitoring time. Recording Time: 547.7 min. Monitoring Time: 531.0 min. Analysis Start: 09:30:10 PM Supine Time: 213.5 min. Analysis Stop: 06:20:32 AM Respiratory Events Respiratory event index (ESSIE) = total number of respiratory events x 60/monitoring time. ESSIE is a surrogate for AHI. Snoring was not present. Count Index Time ESSIE Obstructive Apnea 8 0.9 Supine 213.5 min. 11.8 Mixed Apnea - - Off Supine 317.5 min. 6.2 Central Apnea - - Total 531.0 min. 8.5 Total Apneas 8 0.9 Hypopneas 67 7.6 Total Apneas and Hypopneas 75 8.5 Page 2 Patient Name: Venancio Gonsalves Study Date: 09/28/2022 : 1955 Oxygen Saturation Average SpO2: 93.2% Desaturation Count: 84 Minimum SpO2: 84.0% Desaturation Index: 9.5 Maximum SpO2: 98.0% Time Spent ?88% SpO2: 3.2 min. (0.6%) Cardiac Summary Average Pulse Rate 61.4 bpm Minimum Pulse Rate 44.0 bpm Maximum Pulse Rate 92.0 bpm Impression: This study demonstrates mild obstructive sleep apnea. AHI 9. Recommendations: Treatments for mild sleep apnea include PAP, oral appliances, and/or conservative therapies. If there is daytime dysfunction and/or comorbid metabolic syndrome disorders; would recommend an in-lab PAP titration study to control this patient's obstructive sleep apnea. The patient should be counseled regarding the metabolic and cardiac risks of untreated sleep apnea. The patient should refrain from the operation of heavy machinery and driving if hypersomnolence is present. Avoid alcohol, sedatives, and hypnotics as these can worsen obstructive events. Positional therapy (avoiding supine sleep) should be considered. If indicated, treatment of nasal obstruction should be considered. Recommend maintenance of ideal body weight to assist with overall health. Continue follow-up with ordering provider. - Diagnoses: Obstructive Sleep Apnea Syndrome: G47.33 Procedure: Type 3 portable monitor: 23259 , acknowledging review of the raw data in its entirety. Range (%) Time in range (min) Time in range (%) 0.0 - 88.0 3.2 0.6% CBC: Lab Results Component Value Date WBC 4.8 05/20/2022 RBC 4.73 05/20/2022 HGB 14.5 05/20/2022 HCT 43.1 05/20/2022 MCV 91.2 05/20/2022 MCH 30.8 05/20/2022 MCHC 33.7 05/20/2022 RDW 12.4 05/20/2022 PLT 169 05/20/2022 MPV 8.3 05/20/2022 CMP: Lab Results Component Value Date NA 137 04/08/2023 K 4.3 04/08/2023 CL 104 04/08/2023 CO2 23 04/08/2023 BUN 14 04/08/2023 CREATININE 0.65 (L) 04/08/2023 CREATININE 0.78 08/10/2020 GLUCOSE 105 (H) 04/08/2023 PROT 7.4 04/08/2023 CALCIUM 9.2 04/08/2023 BILITOT 1.0 04/08/2023 ALKPHOS 72 04/08/2023 AST 27 04/08/2023 ALT 26 04/08/2023 BMP: Lab Results Component Value Date NA 137 04/08/2023 K 4.3 04/08/2023 CL 104 04/08/2023 CO2 23 04/08/2023 BUN 14 04/08/2023 CREATININE 0.65 (L) 04/08/2023 CREATININE 0.78 08/10/2020 CALCIUM 9.2 04/08/2023 GLUCOSE 105 (H) 04/08/2023 PT/INR: No results found for: PROTIME, INR PTT: No results found for: APTT, PTT[APTT} FLP: Lab Results Component Value Date TRIG 72 04/08/2023 HDL 57 04/08/2023 LDLCALC 109 (H) 04/08/2023 TSH: Lab Results Component Value Date TSH 0.646 05/20/2022 VITAMIN B12: No results found for: PHYNONIM09 FERRITIN: No results found for: FERRITIN ---- No results found for: PHENYTOIN, PHENOBARB, VALPROATE, CBMZ No components found for: TOPIRANo results found for: OXCARBAZE, OXCARB @LASTAPPOINTMENTTHISPROV@ Transthoracic echocardiogram (TTE) complete with contrast, bubble, strain, and 3D PRN Left Ventricle: Left ventricle size is normal. Mildly increased wall thickness. Normal left ventricular systolic function. EF by 2D Simpsons Biplane is 65%. Normal wall motion. Right Ventricle: Not well visualized. Right ventricle size is normal. Normal systolic function. Aortic Valve: Not well visualized. Swann Tiffanie 3 Ultra bioprosthetic aortic valve with a size of 26 mm. AV mean gradient is 9 mmHg. No cusp calcification. No regurgitation. No paravalvular regurgitation. No stenosis. Normal prosthetic gradient. AV mean gradient is 9 mmHg. AV peak velocity is 2.2 m/s. AV AT is 87.0 ms. LVOT:AV VTI Index is 0.50. AV area by continuity VTI is 1.7 cm2. Mitral Valve: Trace regurgitation. Tricuspid Valve: Normal RVSP. Est RA pressure is 3 mmHg. RVSP is 26 mmHg. @RESULTINGLABINFO@ No results found for: LEVETIRACETA, FERRITIN, CRP, LORRIE, ANCA No results found for: MICAH, IMMUNOGLOBUL, OLIGOBANDS No results found for: [id number], HEPCAB No results found for: CRP, ANATITER, ANCA Patient Name: Venancio Gonsalves Study Date: 02/07/2023 Study Location: [facility]: 1955 Referring Physician: Alma Delia Dale ONCOLOGY ACCOUNT SPECIALIST#: [id number] Reading Physician: Alma Delia Dale Indications for Polysomnography The patient is a 67 year-old Male who is 5' 8 and weighs 203.0 lbs. His BMI equals 31.1. ESS was 2. A full night PAP titration was performed. Current medications include: Atorvastatin, Amlodipine, Eliquis, Pantoprazole, ASA. Medical history includes: Aortic stenosis, atrial fibrillation disc degeneration (lumbar), GERd, heart murmur, herniation of lumbar intervertebral disc with radiculopathy, hyperlipidemia, hypertension, skin cancer. Polysomnogram Data A full night polysomnogram recorded the standard physiologic parameters including EEG (8), EOG (2), chin EMG (2), anterior tibial EMG (2), EKG, nasal pressure monitor, and nasal and oral airflow. Respiratory parameters of chest and abdominal movements were recorded with respiratory inductance plethysmography belts. Oxygen saturation was recorded by pulse oximetry. Body position was recorded by analysis of video monitoring. The study was reviewed in full to ensure the accuracy and quality of the data. Hypopneas were scored with a 4% desaturation in accordance with published AASM and/or CMS guidelines. Treatment: The patient was titrated at pressures ranging from 4* cm/H20 up to 8* cm/H20. The last pressure used in the study was 8* cm/H20 with supplemental oxygen at 0. Sleep Architecture The total recording time of the polysomnogram was 468.3 minutes. The total sleep time was 232.5 minutes. Lights out was at 09:50:04 PM and lights on was at 05:38:23 AM. The patient spent 2.2% of total sleep time in Stage N1, 35.5% in Stage N2, 38.9% in Stages N3, and 23.4% in REM. Sleep latency was 30.1 minutes. REM latency was 207.5 minutes. Sleep Efficiency was 49.6%. Wake after Sleep Onset time was 205.5 minutes. The patient spent 0.0% of the sleep time in the supine position. There were 52 arousals, resulting in an arousal index of 13.4. Respiratory Events The polysomnogram revealed a presence of 0 obstructive, 3 central, and 0 mixed apneas resulting in an Apnea index of 0.8 events per hour. There were 7 hypopneas (?4% desat) resulting in an Apnea\Hypopnea Index (AHI ?4% desat) of 2.6 events per hour. Mean oxygen saturation was 95.0%. The lowest oxygen saturation during sleep was 88.0%. Time spent ?88% oxygen saturation was 0.1 minutes (0.0%). Limb Activity There were 60 total limb movements recorded, of this total, 60 were classified as PLMs. PLM index was 15.5 per hour and PLM associated with Arousals index was 5.2 per hour. Cardiac Summary The average pulse rate was 58.5 bpm. The minimum pulse rate was 48.0 bpm while the maximum pulse rate was 95.0 bpm. Impression: 1. CPAP at a setting of 9 cmH2O eliminated apneas and hypopneas and maintained oxygen saturation at 92% or higher. 2. Periodic limb movements with a very mild PLM arousal index. Recommendations: 1. CPAP at setting of 9 cmH2O using an Airfit N30 size medium full face mask, heated humidity, and a ramp of 20 minutes. 2. Clinical correlation regarding the periodic limb movements. Diagnoses: Obstructive Sleep Apnea Syndrome: G47.33 Periodic Limb Movement Disorder: G47.61 Procedure: Titration Study: 15945 SSMENT AND PLAN: Diagnosis Plan 1. Obstructive sleep apnea PAP therapy 2. Nasal congestion fluticasone (Flonase) 50 MCG/ACT nasal spray He is compliant and the PAP therapy Flonase 2 squirts every night in each nostril. Therapy settings Set Therapy mode to CPAP Set Set Pressure to 9 cmH2O Set EPR to Fulltime Set EPR level to 2 cmH2O Set Ramp enable to Off Climate settings Set climate control to Manual Set humidifier level to Level 4 Set heated tube temperature to 62 F (17 C) I spent 30 minutes caring for this patient today, reviewing labs and records, seeing the patient, documenting in the record and arranging for studies. documented in this encounter [facility] 03-31-2023 History of Presen t illness Narrative Images from the original note were not included. [facility] [address] [facility] [address] Dept: [phone] Dept Visit type: Established : 1955 Reason for Visit: 1 Year Follow-up (Severe , s/p TAVR) Assessment and Plan 1. Paroxysmal atrial fibrillation (HCC) 2. Severe aortic stenosis - ECG 12 lead - CLINIC PERFORMED - Lipid panel - Comprehensive metabolic panel 3. Hyperlipidemia, unspecified hyperlipidemia type - Lipid panel 4. Primary hypertension Mr Gonsalves is doing well from a cardiac standpoint. His echo shows normal EF and normal aortic biopros valve function. His BP is controlled, lipids are treated. His PAF is treated with Eliquis and MIN with CPAP. He remains very functional Follow up in about 6 months (around 09/29/2023) for Dr. Gonzalez. Subjective Mr Gonsalves is a 66 yr old male known to Dr. Gonzalez with a PMH of HTN, HPL, GERD, lumbar disc disease, and aortic stenosis s/p femoral TAVR with 26 mm Tiffanie S3 valve 05/10/2022. Post TAVR EKG showed long NM interval thought to be second degree heart block, beta jaylon was stopped and MCT placed . MCT showed atrial fibrillation but improvement in in prolonged NM. He was placed on Eliquis. He is here today for one year follow up. We referred him to sleep medicine to evaluate for sleep apnea, he is now using CPAP. He continues to feel good and remains very active, NYHA CLass I. Review of Systems Constitutional: Negative for activity change, chills, diaphoresis, fatigue and fever. HENT: Negative for nosebleeds and trouble swallowing. Eyes: Negative for discharge and visual disturbance. Respiratory: Negative for apnea, cough, chest tightness, shortness of breath and wheezing. Cardiovascular: Negative for chest pain, palpitations and leg swelling. Gastrointestinal: Negative for abdominal distention, abdominal pain, blood in stool, diarrhea, nausea and vomiting. Endocrine: Negative for cold intolerance and heat intolerance. Genitourinary: Negative for hematuria. Musculoskeletal: Negative for gait problem and myalgias. Skin: Negative for color change and rash. Neurological: Negative for dizziness, seizures, syncope, facial asymmetry, speech difficulty, weakness, light-headedness, numbness and headaches. Hematological: Does not bruise/bleed easily. Psychiatric/Behavioral: Negative for dysphoric mood. Allergies Allergen Reactions Sulfa Antibiotics Other reaction(s): GI Upset Nausea. Penicillins Rash Outpatient Medications Prior to Visit Medication Sig Dispense Refill amLODIPine (Norvasc) 5 MG tablet TAKE 1 TABLET BY MOUTH EVERY DAY 90 tablet 3 apixaban (Eliquis) 5 MG tablet Take 1 tablet (5 mg) by mouth 2 times daily. 180 tablet 3 atorvastatin (Lipitor) 40 MG tablet Take 1 tablet by mouth Nightly. losartan (Cozaar) 25 MG tablet TAKE 1 TABLET BY MOUTH EVERY DAY 90 tablet 3 pantoprazole (ProtoNix) 40 MG EC tablet Take 40 mg by mouth daily. clindamycin (Cleocin) 300 MG capsule Take 2 capsules by mouth 30 to 60 minutes prior to dental appointment (Patient not taking: Reported on 01/20/2023) 2 capsule 2 metoprolol succinate XL (Toprol-XL) 50 MG 24 hr tablet TAKE 1 TABLET BY MOUTH EVERY DAY (Patient not taking: Reported on 01/20/2023) 90 tablet 1 No facility-administered medications prior to visit. Past Medical History: Diagnosis Date Aortic stenosis Atrial fibrillation (HCC) Disc degeneration, lumbar GERD (gastroesophageal reflux disease) Heart murmur 5 years old Herniation of lumbar intervertebral disc with radiculopathy 2019 L5-S1 (right side). Comprehensive pain management. Hyperlipidemia Hypertension 2020 Skin cancer 2016 Social History Tobacco Use Smoking status: Never Smokeless tobacco: Never Substance Use Topics Alcohol use: Yes Alcohol/week: 3.0 standard drinks of alcohol Types: 3 Glasses of wine per week Past Surgical History: Procedure Laterality Date AORTIC VALVE REPLACEMENT 05/10/2022 CARDIAC CATHETERIZATION N/A 05/10/2022 Performed by Guera Gonzalez MD at [facility] OR CARDIAC PROCEDURE Right 08/11/2020 COLONOSCOPY 12/15/2017 CT CORONARY CTA WITH PROV FFR-CT 04/20/2022 CT ANGIOGRAM TAVR 04/20/2022 [facility] [address] IMAGING Family History Problem Relation Name Age of Onset Other (78309) Father Nilesh Rapid HR Diabetes type II Father Nilesh Objective Vitals: 03/31/23 0956 BP: 122/82 BP Location: Left arm Patient Position: Sitting BP Cuff Size: Adult Pulse: 60 SpO2: 98% Weight: 212 lb 3.2 oz (96.3 kg) Height: 5' 8 (1.727 m) Physical Exam Constitutional: Appearance: Normal appearance. HENT: Head: Normocephalic and atraumatic. Nose: Nose normal. Eyes: Conjunctiva/sclera: Conjunctivae normal. Pupils: Pupils are equal, round, and reactive to light. Cardiovascular: Rate and Rhythm: Normal rate and regular rhythm. Pulmonary: Effort: Pulmonary effort is normal. Breath sounds: Normal breath sounds. Abdominal: General: Bowel sounds are normal. Palpations: Abdomen is soft. Musculoskeletal: General: Normal range of motion. Cervical back: Normal range of motion and neck supple. Skin: General: Skin is warm and dry. Neurological: General: No focal deficit present. Mental Status: He is alert and oriented to person, place, and time. Psychiatric: Mood and Affect: Mood normal. Thought Content: Thought content normal. Data Reviewed and Summarized EF BP Date Value Ref Range Status 03/31/2023 65 55 - 100 % Final Review of tests/labs done/ordered within my specialty: EKG in office: SR with first degree AV block Review of tests/labs done/ordered outside my specialty: Independent interpretation of tests: PADMAJA Hernandez CNP documented in this encounter [facility] 02-14-2023 Telephone encounter Note Patient has been notified and order has been sent to [facility] 02-14-2023 Miscellaneous Notes Patient has been notified and order has been sent to [facility] Find out where he wants the PAP therapy order that I just made to go and send it there. If no preference, then [facility] documented in this encounter [facility] 02-14-2023 Telephone encounter Note Find out where he wants the PAP therapy order that I just made to go and send it there. If no preference, then [facility] 02-08-2023 Telephone encounter Note Patient called in to see if he could get a follow up for his dad Nilesh same day that he is coming in. Venancio's appointment in on 03/31/23. I will place an echo order for Nilesh in his chart. [facility] Work Phone: 02-08-2023 Miscellaneous Notes Patient called in to see if he could get a follow up for his dad Nilesh same day that he is coming in. Venancio's appointment in on 03/31/23. I will place an echo order for Nilesh in his chart. Scheduled echo for [address] March 31 at 9am. Scheduled [employer] OV 03/31 at 10 am Notified patient of appointments. Patient had TAVR 05/10/22. 1 month OV Avelino Lange CNP 06/17/22. Had 6 month follow-up PB 10/12/22. Per PB note: Will get an echo in 6 months (as his 1 year post TAVR echo assessment) Will need echo and Avelino Lange CNP OV for March as echo order expires 04/12/23. This can be 1 year follow-up from TAVR. Maria Eugenia Hagan to schedule and call patient back. Patient prefers to have morning appointments. When should the patient have his echo and who and when should he follow up with? documented in this encounter [facility] 01-20-2023 History of Presen t illness Narrative Images from the original note were not included. [facility] [address] [place] [address] [facility] [address] Dept: [phone] Dept Loc: [phone] Alma Delia Dale MD Thank you for your kind request for a sleep medicine consultation on this patient. CHIEF COMPLAINT: Chief Complaint Patient presents with New Patient Sleep Apnea HISTORY OF PRESENT ILLNESS: The patient is a 67 y.o. person who presents with sleep apnea. The patient reports excessive daytime sleepiness. The patient goes to bed around 930-10PM . It takes less than 30 min to fall asleep. The patient gets up for the day at 0545AM. The patient feels refreshed upon awakening. The patient estimations 1-2 arousals per sleep period. Back pain. He usually cannot get back to sleep well. No TV. The patient reports jerking of the limbs during sleep. The patient denies sleeptalking or sleepwalking. The patient denies acting out dreams. Snoring?Yes Tired? (Tired, Fatigued, or Sleepy during the daytime) Yes Observed? (Stop Breathing or Choking/Gasping during your sleep)Yes Pressure? (High blood pressure meds?) Yes Body Mass Index is 28 or greater? Yes Age greater than 50?Yes Neck size (Men >17 in, Women >16 in)Yes Gender Male?Yes STOP BANG score 8. His father has sleep apnea. He had to have valve replacement and had brief A-fib. Past Medical History: has a past medical history of Aortic stenosis, Atrial fibrillation (CMS/HCC) (HCC), Disc degeneration, lumbar, GERD (gastroesophageal reflux disease), Heart murmur (5 years old), Herniation of lumbar intervertebral disc with radiculopathy (2018), Hyperlipidemia, Hypertension (2020), and Skin cancer (2016). Past Surgical History: has a past surgical history that includes Colonoscopy (12/15/2017); Cardiac procedure (Right, 08/11/2020); CTA HEART CORONARY ANGIOGRAM WITH PROV FFR-CT (04/20/2022); Cardiac catheterization (N/A, 05/10/2022); and Aortic valve replacement (05/10/2022). Medications: Current Outpatient Medications: amLODIPine (Norvasc) 5 MG tablet, TAKE 1 TABLET BY MOUTH EVERY DAY, Disp: 90 tablet, Rfl: 3 apixaban (Eliquis) 5 MG tablet, Take 1 tablet (5 mg) by mouth 2 times daily., Disp: 180 tablet, Rfl: 3 atorvastatin (Lipitor) 40 MG tablet, Take 1 tablet by mouth Nightly., Disp: , Rfl: losartan (Cozaar) 25 MG tablet, TAKE 1 TABLET BY MOUTH EVERY DAY, Disp: 90 tablet, Rfl: 3 pantoprazole (ProtoNix) 40 MG EC tablet, Take 40 mg by mouth daily., Disp: , Rfl: clindamycin (Cleocin) 300 MG capsule, Take 2 capsules by mouth 30 to 60 minutes prior to dental appointment (Patient not taking: Reported on 01/20/2023), Disp: 2 capsule, Rfl: 2 metoprolol succinate XL (Toprol-XL) 50 MG 24 hr tablet, TAKE 1 TABLET BY MOUTH EVERY DAY (Patient not taking: Reported on 01/20/2023), Disp: 90 tablet, Rfl: 1 Allergies: Sulfa antibiotics and Penicillins Social History: Social History Socioeconomic History Marital status: Spouse name: Not on file Number of children: Not on file Years of education: Not on file Highest education level: Not on file Occupational History Not on file Tobacco Use Smoking status: Never Smokeless tobacco: Never Substance and Sexual Activity Alcohol use: Yes Alcohol/week: 3.0 standard drinks of alcohol Types: 3 Glasses of wine per week Drug use: Never Sexual activity: Not on file Other Topics Concern Not on file Social History Narrative Not on file Social Determinants of Health Financial Resource Strain: Not on file Food Insecurity: Not on file Transportation Needs: Not on file Physical Activity: Not on file Stress: Not on file Social Connections: Not on file Intimate Partner Violence: Not on file Housing Stability: Not on file Family History: Family History Problem Relation Name Age of Onset Other (36317) Father Nilesh Rapid HR Diabetes type II Father Nilesh REVIEW OF SYSTEMS: Review of Systems Constitutional: Negative for appetite change, chills, diaphoresis, fever and unexpected weight change. HENT: Negative for dental problem and mouth sores. Eyes: Negative for discharge and itching. Respiratory: Negative for chest tightness. Cardiovascular: Negative for chest pain and leg swelling. Gastrointestinal: Negative for rectal pain and vomiting. Endocrine: Negative for polydipsia, polyphagia and polyuria. Genitourinary: Negative for decreased urine volume, flank pain and genital sores. Musculoskeletal: Negative for arthralgias. Skin: Negative for color change. Allergic/Immunologic: Negative for food allergies and immunocompromised state. Hematological: Negative for adenopathy. Does not bruise/bleed easily. Psychiatric/Behavioral: Negative for agitation, behavioral problems, decreased concentration, sleep disturbance and suicidal ideas. PHYSICAL EXAM: Vitals: BP (!) 151/88 (BP Location: Left arm) Pulse 62 Wt 210 lb (95.3 kg) BMI 31.93 kg/m General Appearance: Patient is in no apparent distress. Head is normocephalic, atraumatic. Lungs CTA Cardiovascular: Regular rate and rhythm. No heart murmurs. No carotid bruit Neurologic: Mentation: Alert and oriented x 3 [address] person, place and time. Speech and Language: Speech and language normal Concentration and Attention: Concentration normal Memory: Memory normal Fund of Knowledge: Fund of knowledge normal Cranial Nerves: II, III, IV, V, , VII, VIII, IX, X, XI, XII tested and were intact including fundoscopic exam (optic discs) and visual field to confrontation. Motor: Strength:Strength 5 out of 5 with normal tone Alternating Movements: Normal Cogwheel Rigidity: None Tone: Tone is normal Tremor / Involuntary Movements: None Deep Tendon Reflexes: 1 out of 4 symmetrical in all four limbs. Coordination: Normal coordination upper and lower extremities DATA Home Sleep Apnea Testing (HSAT) Report Patient Name: Venancio Gonsalves Study Date: 09/28/2022 : 1955 Study Location: [facility] Referring Provider: Sadie Molina [facility]#: [id number] Reading Physician: Stefanie Bah The patient is a 67 year-old Male who is 5' 8 and weighs 203.0 lbs. His BMI equals 31.1. Sleep History: EDS, Snoring ESS: 2 Current medications include: Amlodipine, ASA, Atorvastatin, Protonix, Metoprolol Medical history includes: GERD, HTN, High cholesterol Procedure This was an unattended study performed using an [employer] device. The patient received instruction on use of the device by a registered medical lab technologist. Monitored parameters included: airflow via nasal pressure transducer, chest and abdominal effort via RIP belts, oxygen saturation via pulse oximetry, heart rate, snoring, and body position. The study was deemed technically adequate unless otherwise noted. Scoring Methodology Apneas were scored when there was an absence of airflow > 10 seconds. Hypopneas were scored based off a > 30% reduction in airflow amplitude with a 4% oxygen desaturation for > 10 seconds, in accordance with published AASM and/or CMS guidelines. Study Overview Sleep is assumed for the entire study. Monitoring time = total recording time minus periods of artifact and time the patient was assumed to be awake based on body position, other signal sensors, and/or respiratory pattern. Scoring of the study is based off monitoring time. Recording Time: 547.7 min. Monitoring Time: 531.0 min. Analysis Start: 09:30:10 PM Supine Time: 213.5 min. Analysis Stop: 06:20:32 AM Respiratory Events Respiratory event index (ESSIE) = total number of respiratory events x 60/monitoring time. ESSIE is a surrogate for AHI. Snoring was not present. Count Index Time ESSIE Obstructive Apnea 8 0.9 Supine 213.5 min. 11.8 Mixed Apnea - - Off Supine 317.5 min. 6.2 Central Apnea - - Total 531.0 min. 8.5 Total Apneas 8 0.9 Hypopneas 67 7.6 Total Apneas and Hypopneas 75 8.5 Page 2 Patient Name: Venancio Gnosalves Study Date: 09/28/2022 : 1955 Oxygen Saturation Average SpO2: 93.2% Desaturation Count: 84 Minimum SpO2: 84.0% Desaturation Index: 9.5 Maximum SpO2: 98.0% Time Spent ?88% SpO2: 3.2 min. (0.6%) Cardiac Summary Average Pulse Rate 61.4 bpm Minimum Pulse Rate 44.0 bpm Maximum Pulse Rate 92.0 bpm Impression: This study demonstrates mild obstructive sleep apnea. AHI 9. Recommendations: Treatments for mild sleep apnea include PAP, oral appliances, and/or conservative therapies. If there is daytime dysfunction and/or comorbid metabolic syndrome disorders; would recommend an in-lab PAP titration study to control this patient's obstructive sleep apnea. The patient should be counseled regarding the metabolic and cardiac risks of untreated sleep apnea. The patient should refrain from the operation of heavy machinery and driving if hypersomnolence is present. Avoid alcohol, sedatives, and hypnotics as these can worsen obstructive events. Positional therapy (avoiding supine sleep) should be considered. If indicated, treatment of nasal obstruction should be considered. Recommend maintenance of ideal body weight to assist with overall health. Continue follow-up with ordering provider. - Diagnoses: Obstructive Sleep Apnea Syndrome: G47.33 Procedure: Type 3 portable monitor: [id number] , acknowledging review of the raw data in its entirety. Range (%) Time in range (min) Time in range (%) 0.0 - 88.0 3.2 0.6% CBC: Lab Results Component Value Date WBC 4.8 05/20/2022 RBC 4.73 05/20/2022 HGB 14.5 05/20/2022 HCT 43.1 05/20/2022 MCV 91.2 05/20/2022 MCH 30.8 05/20/2022 MCHC 33.7 05/20/2022 RDW 12.4 05/20/2022 PLT 169 05/20/2022 MPV 8.3 05/20/2022 CMP: Lab Results Component Value Date NA 140 05/20/2022 K 4.2 05/20/2022 CL 106 05/20/2022 CO2 28 05/20/2022 BUN 12 05/20/2022 CREATININE 0.91 05/20/2022 CREATININE 0.78 08/10/2020 GLUCOSE 80 05/20/2022 PROT 7.7 04/20/2022 CALCIUM 9.4 05/20/2022 BILITOT 0.9 04/20/2022 ALKPHOS 64 04/20/2022 AST 31 04/20/2022 ALT 19 04/20/2022 BMP: Lab Results Component Value Date NA 140 05/20/2022 K 4.2 05/20/2022 CL 106 05/20/2022 CO2 28 05/20/2022 BUN 12 05/20/2022 CREATININE 0.91 05/20/2022 CREATININE 0.78 08/10/2020 CALCIUM 9.4 05/20/2022 GLUCOSE 80 05/20/2022 PT/INR: No results found for: PROTIME, INR PTT: No results found for: APTT, PTT[APTT} FLP: Lab Results Component Value Date TRIG 78 08/09/2020 HDL 59 08/09/2020 TSH: Lab Results Component Value Date TSH 0.646 05/20/2022 VITAMIN B12: No results found for: [id number] FERRITIN: No results found for: FERRITIN ---- No results found for: PHENYTOIN, PHENOBARB, VALPROATE, CBMZ No components found for: TOPIRANo results found for: OXCARBAZE, OXCARB @[email or web address]@ Cardiac event monitor The patient wore an event monitor for the above dates and a total of 10 transmissions were sent, all of which were automatic. The baseline transmission demonstrated sinus rhythm with a first-degree AV block at 78 bpm. Automatic triggers were for atrial fibrillation and atrial flutter likely atypical. Overall there was a 1% atrial arrhythmia burden with an average ventricular response of 103 bpm with a minimum of 50 and a maximum of 157. No symptoms were noted. Overall, the average heart rate was 69 bpm with a minimum of 35 and a maximum of 160. Minimal heart rates tend to be with sleep in the 35 to 45 bpm range. Occasional blocked premature atrial contractions were noted. No significant AV block was observed. Summary: Abnormal event monitor demonstrating a 1% atrial arrhythmia burden consisting of both atrial fibrillation and a likely atypical atrial flutter. No significant AV block was observed @RESULTINGLABINFO@ No results found for: LEVETIRACETA, FERRITIN, CRP, LORRIE, ANCA No results found for: MICAH, IMMUNOGLOBUL, OLIGOBANDS No results found for: [id number], HEPCAB No results found for: CRP, ANATITER, ANCA, ANCA ASSESSMENT AND PLAN: Diagnosis Plan 1. Obstructive sleep apnea [facility] The patient has moderate O2 desats from his sleep apnea and really needs to be treated CPAP. A CPAP titration will be ordered. I spent 30 minutes caring for this patient today, reviewing labs and records, seeing the patient, documenting in the record and arranging for studies. documented in this encounter [facility] 01-19-2023 Telephone encounter Note SIL BEAL 10/12/22. Labs done 05/20/22. [facility] 01-19-2023 Miscellaneous Notes SIL BEAL 10/12/22. Labs done 05/20/22. documented in this encounter [facility] 01-12-2023 Telephone encounter Note Scheduled echo for [address] March 31 at 9am. Scheduled [employer] OV 03/31 at 10 am Notified patient of appointments. [facility] 01-07-2023 Telephone encounter Note Patient had TAVR 05/10/22. 1 month OV Avelino Lange CNP 06/17/22. Had 6 month follow-up PB 10/12/22. Per PB note: Will get an echo in 6 months (as his 1 year post TAVR echo assessment) Will need echo and Avelino Lange CNP OV for March as echo order expires 04/12/23. This can be 1 year follow-up from TAVR. Maria Eugenia Hagan to schedule and call patient back. Patient prefers to have morning appointments. [facility] 01-07-2023 Telephone encounter Note When should the patient have his echo and who and when should he follow up with? [facility] 07-29-2022 Telephone encounter Note Images from the original note were not included. Reason for Call: orders Call back phone number if necessary: [phone] Good Morning , Pt has a hst order but unfortunately the codes are not valid. Can you please put a new order in with a G code. Thanks ! [facility] 07-29-2022 Miscellaneous Notes Images from the original note were not included. Reason for Call: orders Call back phone number if necessary: [phone] Good Morning , Pt has a hst order but unfortunately the codes are not valid. Can you please put a new order in with a G code. Thanks ! documented in this encounter [facility] 07-15-2022 Note HNO ID: [id number] Author: Lauri Lemus DPM Service: ? Author Type: Physician Type: Progress Notes Filed: 07/16/2022 7:24 AM Note Text: Chief Complaint: b/l toe pain HPI: This 67 year old male with PMH indicated below presents for follow up of b/l toe pain. Patient was last seen with possible acute gout flare up of left big toe and third toe. Since last visit, he has completed the prednisone course prescribed by his PCP. He was applying voltaren gel as recommended but has discontinued its use as he did not notice a difference with its use. He is now complaining of a flare up of his right 2nd toe. He describes these flare ups and being painful with associated swelling and redness without inciting event or injury. Has noticed the swelling/redness worsen with hiking/walking. Relates pain to bilateral toes has improved, but still complains of soreness localized to the 2nd toe. Denies having known personal hx of gout but father had gout. Denies other pedal complaints. PCP: Azael Sanders MD: PAST MEDICAL HISTORY Diagnosis Date Aortic stenosis Bilateral foot pain left great toe, right 2nd toe Disc degeneration, lumbar Diverticulosis GERD (gastroesophageal reflux disease) Skin cancer 2017 : Current Outpatient Medications Medication Sig apixaban (ELIQUIS) 5 mg tab(s) methylPREDNISolone (MEDROL DOSE-PACK) 4 mg Dose-Pack Take by mouth. As Instructed per package amLODIPine (NORVASC) 5 mg tablet metoprolol succinate ER (TOPROL XL) 50 mg [address] (PROTONIX) 40 mg tablet TAKE 1 TABLET BY MOUTH TWICE A DAY BEFORE MEALS atorvastatin (LIPITOR) 40 mg tablet Take 40 mg by mouth once daily. No current facility-administered medications for this visit. : ALLERGIES Allergen Reactions Sulfa (Sulfonamide * GI Upset Nausea. Penicillins Rash : PAST SURGICAL HISTORY Procedure Laterality Date COLONOSCOPY 12/15/2017 Diverticulosis EGD 09/17/2020 Fundic gland polyps, otherwise normal FAMILY HISTORY Problem Relation Age of Onset Colon Cancer No Family History : Social History Tobacco Use Smoking status: Never Smokeless tobacco: Never Vaping Use Vaping Use: Never used Substance Use Topics Alcohol use: Yes Comment: occ. Drug use: No REVIEW OF SYSTEMS See tech note MSK: + as noted in HPI. Physical Examination: On General Observation: Patient is a pleasant, cooperative, well developed 67 year old adult male. The patient is alert and oriented to time, place and person. Patient has normal affect and mood. There were no vitals taken for this visit. Examination of both lower extremities: Satisfactory alignment. No gross deformity is noted. Normal alignment in stance. Peripheral pulses are palpable. Capillary refill time is less than 3 seconds to all toes. The skin is warm and dry. No rashes or lesions. There are no open wounds or signs of infection, There is no lymphadenopathy noted. Peripheral sensation and reflexes are intact, bilateral and symmetrical. Motor strength is 5/5 of all groups. Normal range of motion, stability and coordination of both lower extremities. + Edema and mild erythema to right 2nd distal digit with associated mallet toe deformity. Mild edema and resolved erythema to the left 3rd distal digit with associated mallet toe deformity. + Pain to palpation of distal right 2nd toe and with DIPJ ROM. Radiographs: 3 views AP, MO, Lat Right Foot (06/10/22). Radiographic evaluation: No obvious fracture or dislocation is noted. No acute osseous changes. No osteolytic or osteoblastic lesions appreciated. No soft tissue gas. No discernible mass noted. Joint spaces are well maintained. Bone density appear typical for age of patient. 3 views AP, MO, Lat Left Foot (06/10/22). Radiographic evaluation: Degenerative changes to the 3rd DIPJ with christiano-articular spurring of the base of the distal phalanx relative to the middle phalanx. No obvious fracture or dislocation is noted. No acute osseous changes. No osteolytic or osteoblastic lesions appreciated. No soft tissue gas. No discernible mass noted. Bone density appear typical for age of patient. 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 Plan: - A comprehensive history and physical examination were preformed. The patient was educated on clinical and radiographic findings, diagnosis and treatment plans. Patient state that he understands all that has been explained and all questions were answered to his apparent satisfaction. - Etiology and treatment options were discussed with the patient. - Rx prednisone 13 day taper if patient experiences another flare-up - Continue topical voltaren as needed (unable to take Mobic d/t being on Eliquis) Follow up OLYAN Nicole Baron, DPM PGY3 I personally saw and evaluat (more content not included)... [facility] 07-15-2022 Note HNO ID: [id number] Author: Felicia Johnson MA Service: ? Author Type: Crab Picker Type: Progress Notes Filed: 07/16/2022 7:24 AM Note Text: REVIEW OF SYSTEMS: GENERAL: Well developed, well nourished. No acute distress PAIN: Pain 09/06 CARDIOVASCULAR: Negative for chest pain, leg swelling and palpations. MSK: Negative for joint swelling SKIN: Negative for lesions, rash, itching, metal sensitivity NEURO: Negative for seizure, trauma, numbness/tingling of extremities. ENDOCRINE: Negative for diabetic associated symptoms HEMATOLOGY: Negative for excessive bleeding, clots, bleeding disorders. Felicia Johnson MA [facility] 07-15-2022 History of Presen t illness Narrative Chief Complaint: b/l toe pain HPI: This 67 year old male with PMH indicated below presents for follow up of b/l toe pain. Patient was last seen with possible acute gout flare up of left big toe and third toe. Since last visit, he has completed the prednisone course prescribed by his PCP. He was applying voltaren gel as recommended but has discontinued its use as he did not notice a difference with its use. He is now complaining of a flare up of his right 2nd toe. He describes these flare ups and being painful with associated swelling and redness without inciting event or injury. Has noticed the swelling/redness worsen with hiking/walking. Relates pain to bilateral toes has improved, but still complains of soreness localized to the 2nd toe. Denies having known personal hx of gout but father had gout. Denies other pedal complaints. PCP: Azael Sanders MD: PAST MEDICAL HISTORY Diagnosis Date Aortic stenosis Bilateral foot pain left great toe, right 2nd toe Disc degeneration, lumbar Diverticulosis GERD (gastroesophageal reflux disease) Skin cancer 2017 : Current Outpatient Medications Medication Sig apixaban (ELIQUIS) 5 mg tab(s) methylPREDNISolone (MEDROL DOSE-PACK) 4 mg Dose-Pack Take by mouth. As Instructed per package amLODIPine (NORVASC) 5 mg tablet metoprolol succinate ER (TOPROL XL) 50 mg [address] (PROTONIX) 40 mg tablet TAKE 1 TABLET BY MOUTH TWICE A DAY BEFORE MEALS atorvastatin (LIPITOR) 40 mg tablet Take 40 mg by mouth once daily. No current facility-administered medications for this visit. : ALLERGIES Allergen Reactions Sulfa (Sulfonamide * GI Upset Nausea. Penicillins Rash : PAST SURGICAL HISTORY Procedure Laterality Date COLONOSCOPY 12/15/2017 Diverticulosis EGD 09/17/2020 Fundic gland polyps, otherwise normal FAMILY HISTORY Problem Relation Age of Onset Colon Cancer No Family History : Social History Tobacco Use Smoking status: Never Smokeless tobacco: Never Vaping Use Vaping Use: Never used Substance Use Topics Alcohol use: Yes Comment: occ. Drug use: No REVIEW OF SYSTEMS See tech note MSK: + as noted in HPI. Physical Examination: On General Observation: Patient is a pleasant, cooperative, well developed 67 year old adult male. The patient is alert and oriented to time, place and person. Patient has normal affect and mood. There were no vitals taken for this visit. Examination of both lower extremities: Satisfactory alignment. No gross deformity is noted. Normal alignment in stance. Peripheral pulses are palpable. Capillary refill time is less than 3 seconds to all toes. The skin is warm and dry. No rashes or lesions. There are no open wounds or signs of infection, There is no lymphadenopathy noted. Peripheral sensation and reflexes are intact, bilateral and symmetrical. Motor strength is 5/5 of all groups. Normal range of motion, stability and coordination of both lower extremities. + Edema and mild erythema to right 2nd distal digit with associated mallet toe deformity. Mild edema and resolved erythema to the left 3rd distal digit with associated mallet toe deformity. + Pain to palpation of distal right 2nd toe and with DIPJ ROM. Radiographs: 3 views AP, MO, Lat Right Foot (06/10/22). Radiographic evaluation: No obvious fracture or dislocation is noted. No acute osseous changes. No osteolytic or osteoblastic lesions appreciated. No soft tissue gas. No discernible mass noted. Joint spaces are well maintained. Bone density appear typical for age of patient. 3 views AP, MO, Lat Left Foot (06/10/22). Radiographic evaluation: Degenerative changes to the 3rd DIPJ with christiano-articular spurring of the base of the distal phalanx relative to the middle phalanx. No obvious fracture or dislocation is noted. No acute osseous changes. No osteolytic or osteoblastic lesions appreciated. No soft tissue gas. No discernible mass noted. Bone density appear typical for age of patient. 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 Plan: - A comprehensive history and physical examination were preformed. The patient was educated on clinical and radiographic findings, diagnosis and treatment plans. Patient state that he understands all that has been explained and all questions were answered to his apparent satisfaction. - Etiology and treatment options were discussed with the patient. - Rx prednisone 13 day taper if patient experiences another flare-up - Continue topical voltaren as needed (unable to take Mobic d/t being on Eliquis) Follow up PRN Nicole Baron DPM PGY3 I personally saw and evaluated the patient. I reviewed the resident's note. I agree with the resident's assessment and plan unless otherwise noted. Lauri Lemus DPM, FACFAS REVIEW OF SYSTEMS: GENERAL: Well developed, well nourished. No acute distress PAIN: Pain 4/10 CARDIOVASCULAR: Negative for chest pain, leg swelling and palpations. MSK: Negative for joint swelling SKIN: Negative for lesions, rash, itching, metal sensitivity NEURO: Negative for seizure, trauma, numbness/tingling of extremities. ENDOCRINE: Negative for diabetic associated symptoms HEMATOLOGY: Negative for excessive bleeding, clots, bleeding disorders. Felicia Johnson MA documented in this encounter [facility] 06-28-2022 Telephone encounter Note Spoke w/ pt, has dental appt in AM, needs ATB for SBE prophylaxis. Avelino Lange CNP to approve and route [facility] 06-28-2022 Miscellaneous Notes Spoke w/ pt, has dental appt in AM, needs ATB for SBE prophylaxis. Avelino Lange CNP to approve and route documented in this encounter [facility] 06-17-2022 Evaluation + Plan note Associated Problem(s): Paroxysmal atrial fibrillation (CMS/HCC) (HCC) Asx. Continue Eliquis, resume low dose beta jaylon. Cont MCT. Consider sleep study [facility] 06-17-2022 Miscellaneous Notes Associated Problem(s): Paroxysmal atrial fibrillation (CMS/HCC) (HCC) Asx. Continue Eliquis, resume low dose beta jaylon. Cont MCT. Consider sleep study Associated Problem(s): Severe aortic stenosis S/p TAVR. Continue Eliquis. Echo today. Chronic SBE prophylaxis Associated Problem(s): Second degree heart block Resolved, continue MCT for one month monitoring timeframe. Associated Problem(s): Hypertension BP uncontrolled. Will resume metoprolol XL at 25 mg once daily and continue to follow BP. Will likely need additional therapy. Discussed low sodium diet Addended by: SADIE LANGE on: 06/17/2022 11:45 AM Modules accepted: Orders documented in this encounter [facility] 06-17-2022 Evaluation + Plan note Associated Problem(s): Severe aortic stenosis S/p TAVR. Continue Eliquis. Echo today. Chronic SBE prophylaxis [facility] 06-17-2022 Evaluation + Plan note Associated Problem(s): Second degree heart block Resolved, continue MCT for one month monitoring timeframe. [facility] 06-17-2022 Evaluation + Plan note Associated Problem(s): Hypertension BP uncontrolled. Will resume metoprolol XL at 25 mg once daily and continue to follow BP. Will likely need additional therapy. Discussed low sodium diet [facility] 06-17-2022 History of Presen t illness Narrative Images from the original note were not included. [facility] [address] [facility] [address] Dept: [phone] Dept Loc: [phone] Visit type: Established : 1955 Reason for Visit: 1 Month Follow Up (Severe s/p TAVR, atrial fibrillation, AV block) Assessment and Plan 1. Primary hypertension Assessment & Plan: BP uncontrolled. Will resume metoprolol XL at 25 mg once daily and continue to follow BP. Will likely need additional therapy. Discussed low sodium diet Orders: - ECG 12 lead - CLINIC PERFORMED 2. Second degree heart block Assessment & Plan: Resolved, continue MCT for one month monitoring timeframe. 3. Severe aortic stenosis Assessment & Plan: S/p TAVR. Continue Eliquis. Echo today. Chronic SBE prophylaxis 4. Paroxysmal atrial fibrillation (CMS/HCC) (HCC) Assessment & Plan: Asx. Continue Eliquis, resume low dose beta jaylon. Cont MCT. Consider sleep study Follow up in about 3 months (around 09/15/2022) for Dr. Gonzalez. Subjective Mr Gonsalves is a 66 yr old male known to Dr. Gonzalez with a PMH of HTN, HPL, GERD, lumbar disc disease, and severe symptomatic aortic stenosis s/p femoral TAVR with 26 mm Tiffanie S3 valve 05/10/2022. He was feeling well at one week follow up, but his EKG showed long NM interval thought to be second degree heart block. His beta jaylon was stopped and MCT placed . MCT showed atrial fibrillation but improvement in in prolonged NM. He was placed on Eliquis. He presents today for one month follow up. He feels really good. He denies any chest pain, dyspnea, palpitations, or bleeding. He has occasional fleeting dizziness, no syncope Venancio Gonsalves Review of Systems Constitutional: Negative for activity change, chills, diaphoresis, fatigue and fever. HENT: Negative for nosebleeds and trouble swallowing. Eyes: Negative for discharge and visual disturbance. Respiratory: Negative for apnea, cough, chest tightness, shortness of breath and wheezing. Cardiovascular: Negative for chest pain, palpitations and leg swelling. Gastrointestinal: Negative for abdominal distention, abdominal pain, blood in stool, diarrhea, nausea and vomiting. Endocrine: Negative for cold intolerance and heat intolerance. Genitourinary: Negative for hematuria. Musculoskeletal: Negative for gait problem and myalgias. Skin: Negative for color change and rash. Neurological: Negative for dizziness, seizures, syncope, facial asymmetry, speech difficulty, weakness, light-headedness, numbness and headaches. Hematological: Does not bruise/bleed easily. Psychiatric/Behavioral: Negative for dysphoric mood. Allergies Allergen Reactions Sulfa Antibiotics Other reaction(s): GI Upset Nausea. Penicillins Rash Outpatient Medications Prior to Visit Medication Sig Dispense Refill amLODIPine (Norvasc) 5 MG tablet Take 1 tablet by mouth in the morning. aspirin 81 MG chewable tablet Chew 81 mg in the morning. atorvastatin (Lipitor) 40 MG tablet Take 1 tablet by mouth Nightly. pantoprazole (ProtoNix) 40 MG EC tablet Take 40 mg by mouth. metoprolol succinate XL (Toprol-XL) 50 MG 24 hr tablet Take 1 tablet by mouth in the morning. No facility-administered medications prior to visit. Past Medical History: Diagnosis Date Aortic stenosis Disc degeneration, lumbar GERD (gastroesophageal reflux disease) Heart murmur 5 years old Herniation of lumbar intervertebral disc with radiculopathy 2019 L5-S1 (right side). Comprehensive pain management. Hyperlipidemia Skin cancer 2017 Social History Tobacco Use Smoking status: Never Smokeless tobacco: Never Substance Use Topics Alcohol use: Yes Alcohol/week: 3.0 standard drinks Types: 3 Glasses of wine per week Past Surgical History: Procedure Laterality Date CARDIAC CATHETERIZATION N/A 05/10/2022 Performed by Guera Gonzalez MD at [facility] OR CARDIAC PROCEDURE Right 08/11/2020 COLONOSCOPY 12/15/2017 CT HEART CORONARY ANGIOGRAM - WITH PROVISIONAL FFR-CT 04/20/2022 CT ANGIOGRAM TAVR 04/20/[address] [facility] [address] IMAGING Family History Problem Relation Name Age of Onset Other ([address]47) Father Nilesh Rapid HR Diabetes type II Father Nilesh Objective Vitals: 06/17/22 0908 06/17/22 0946 BP: (!) 160/74 (!) 144/70 BP Location: Right arm Right arm Patient Position: Sitting Sitting BP Cuff Size: Large adult Large adult Pulse: 54 SpO2: 99% Weight: 203 lb (92.1 kg) Height: 5' 8 (1.727 m) Physical Exam Constitutional: Appearance: Normal appearance. HENT: Head: Normocephalic and atraumatic. Nose: Nose normal. Eyes: Conjunctiva/sclera: Conjunctivae normal. Pupils: Pupils are equal, round, and reactive to light. Cardiovascular: Rate and Rhythm: Normal rate and regular rhythm. Pulmonary: Effort: Pulmonary effort is normal. Breath sounds: Normal breath sounds. Abdominal: General: Bowel sounds are normal. Palpations: Abdomen is soft. Musculoskeletal: General: Normal range of motion. Cervical back: Normal range of motion and neck supple. Skin: General: Skin is warm and dry. Neurological: General: No focal deficit present. Mental Status: He is alert and oriented to person, place, and time. Psychiatric: Mood and Affect: Mood normal. Thought Content: Thought content normal. Data Reviewed and Summarized EF BP Date Value Ref Range Status 06/17/2022 70 55 - 100 % Review of tests/labs done/ordered within my specialty: EKG in office: SR with ant/septal Q waves (no change) Reviewed MCT strips, shows atrial fibrillation HR 130 highest. No high degree AV block Review of tests/labs done/ordered outside my specialty: Independent interpretation of tests: PADMAJA Hernandez CNP documented in this encounter [facility] 06-17-2022 Note Addended by: SADIE LANGE on: 06/17/2022 11:45 AM Modules accepted: Orders [facility] [place] 06-17-2022 Note Addended by: SADIE LANGE on: 06/17/2022 11:45 AM Modules accepted: Orders [facility] 06-10-2022 Note HNO ID: [id number] Author: Lauri Lemus DPM Service: ? Author Type: Physician Type: Progress Notes Filed: 06/11/2022 11:16 AM Note Text: Chief Complaint: b/l toe pain HPI: This 66 year old male with PMH indicated below presents complaining of b/l toe pain. Patient has had recurrent flare up of left third toe pain over the past few years, most recently 3 weeks ago. He describes these flare ups and being severely painful with associated swelling and redness without inciting event or injury. Patient states he has had one flare up occurring in his left 4th toe and great toe in the past. His PCP prescribed him a medrol dose shira which has since resolved most of his left 3rd toe pain and only has mild pain and swelling remaining. Denies having known personal hx of gout but father had gout. Denies other pedal complaints. PCP: Azael Sanders MD: PAST MEDICAL HISTORY Diagnosis Date Aortic stenosis Bilateral foot pain left great toe, right 2nd toe Disc degeneration, lumbar Diverticulosis GERD (gastroesophageal reflux disease) Skin cancer 2017 : Current Outpatient Medications Medication Sig apixaban (ELIQUIS) 5 mg tab(s) methylPREDNISolone (MEDROL DOSE-PACK) 4 mg Dose-Pack Take by mouth. As Instructed per package amLODIPine (NORVASC) [address] (PROTONIX) 40 mg tablet TAKE 1 TABLET BY MOUTH TWICE A DAY BEFORE MEALS atorvastatin (LIPITOR) 40 mg tablet Take 40 mg by mouth once daily. metoprolol succinate ER (TOPROL XL) 50 mg 24 hr tablet No current facility-administered medications for this visit. : ALLERGIES Allergen Reactions Sulfa (Sulfonamide * GI Upset Nausea. Penicillins Rash : PAST SURGICAL HISTORY Procedure Laterality Date COLONOSCOPY 12/15/2017 Diverticulosis EGD 09/17/2020 Fundic gland polyps, otherwise normal FAMILY HISTORY Problem Relation Age of Onset Colon Cancer No Family History : Social History Tobacco Use Smoking status: Never Smokeless tobacco: Never Vaping Use Vaping Use: Never used Substance Use Topics Alcohol use: Yes Comment: occ. Drug use: No REVIEW OF SYSTEMS See tech note MSK: + as noted in HPI. Physical Examination: On General Observation: Patient is a pleasant, cooperative, well developed 66 year old adult male. The patient is alert and oriented to time, place and person. Patient has normal affect and mood. Resp 20 Ht 172.7 cm (5' 8) Wt 89.8 kg (198 lb) BMI 30.11 kg/m? Examination of both lower extremities: Satisfactory alignment. No gross deformity is noted. Normal alignment in stance. Peripheral pulses are palpable. Capillary refill time is less than 3 seconds to all toes. The skin is warm and dry. No rashes or lesions. There are no open wounds or signs of infection, There is no lymphadenopathy noted. Peripheral sensation and reflexes are intact, bilateral and symmetrical. Motor strength is 5/5 of all groups. Normal range of motion, stability and coordination of both lower extremities. + Edema and mild erythema to right 3rd distal digit with associated mallet toe deformity + Pain to palpation of distal right 3rd toe and with DIPJ ROM. Radiographs: 3 views AP, MO, Lat Right Foot were taken and evaluated (06/10/22). Radiographic evaluation: No obvious fracture or dislocation is noted. No acute osseous changes. No osteolytic or osteoblastic lesions appreciated. No soft tissue gas. No discernible mass noted. Joint spaces are well maintained. Bone density appear typical for age of patient. 3 views AP, MO, Lat Left Foot were taken and evaluated (06/10/22). Radiographic evaluation: Degenerative changes to the 3rd DIPJ with christiano-articular spurring of the base of the distal phalanx relative to the middle phalanx. No obvious fracture or dislocation is noted. No acute osseous changes. No osteolytic or osteoblastic lesions appreciated. No soft tissue gas. No discernible mass noted. Bone density appear typical for age of patient. 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 The patient was educated on clinical and radiographic findings, diagnosis and treatment plans. Patient state that he understands all that has been explained and all questions were answered to his apparent satisfaction. - Etiology and treatment options were discussed with the patient. - Complete prednisone taper as prescribed by PCP. - Rx topical voltaren (unable to take Mobic d/t being on Eliquis) - Briefly discussed mallet toe surgical correction. Will re-evaluate at next follow up. Follow up 4 weeks. Mitzi Cisneros DPM PGY-3 I personally saw and evaluated the patient. I reviewed the resident's note. I agree with the resident's assessment and plan unless otherwise noted. Lauri Lemus DPM, [facility] 06-10-2022 History of Presen t illness Narrative Chief Complaint: b/l toe pain HPI: This 66 year old male with PMH indicated below presents complaining of b/l toe pain. Patient has had recurrent flare up of left third toe pain over the past few years, most recently 3 weeks ago. He describes these flare ups and being severely painful with associated swelling and redness without inciting event or injury. Patient states he has had one flare up occurring in his left 4th toe and great toe in the past. His PCP prescribed him a medrol dose shira which has since resolved most of his left 3rd toe pain and only has mild pain and swelling remaining. Denies having known personal hx of gout but father had gout. Denies other pedal complaints. PCP: Azael Sanders MD: PAST MEDICAL HISTORY Diagnosis Date Aortic stenosis Bilateral foot pain left great toe, right 2nd toe Disc degeneration, lumbar Diverticulosis GERD (gastroesophageal reflux disease) Skin cancer 2017 : Current Outpatient Medications Medication Sig apixaban (ELIQUIS) 5 mg tab(s) methylPREDNISolone (MEDROL DOSE-PACK) 4 mg Dose-Pack Take by mouth. As Instructed per package amLODIPine (NORVASC) [address] (PROTONIX) 40 mg tablet TAKE 1 TABLET BY MOUTH TWICE A DAY BEFORE MEALS atorvastatin (LIPITOR) 40 mg tablet Take 40 mg by mouth once daily. metoprolol succinate ER (TOPROL XL) 50 mg 24 hr tablet No current facility-administered medications for this visit. : ALLERGIES Allergen Reactions Sulfa (Sulfonamide * GI Upset Nausea. Penicillins Rash : PAST SURGICAL HISTORY Procedure Laterality Date COLONOSCOPY 12/15/2017 Diverticulosis EGD 09/17/2020 Fundic gland polyps, otherwise normal FAMILY HISTORY Problem Relation Age of Onset Colon Cancer No Family History : Social History Tobacco Use Smoking status: Never Smokeless tobacco: Never Vaping Use Vaping Use: Never used Substance Use Topics Alcohol use: Yes Comment: occ. Drug use: No REVIEW OF SYSTEMS See tech note MSK: + as noted in HPI. Physical Examination: On General Observation: Patient is a pleasant, cooperative, well developed 66 year old adult male. The patient is alert and oriented to time, place and person. Patient has normal affect and mood. Resp 20 Ht 172.7 cm (5' 8) Wt 89.8 kg (198 lb) BMI 30.11 kg/m Examination of both lower extremities: Satisfactory alignment. No gross deformity is noted. Normal alignment in stance. Peripheral pulses are palpable. Capillary refill time is less than 3 seconds to all toes. The skin is warm and dry. No rashes or lesions. There are no open wounds or signs of infection, There is no lymphadenopathy noted. Peripheral sensation and reflexes are intact, bilateral and symmetrical. Motor strength is 5/5 of all groups. Normal range of motion, stability and coordination of both lower extremities. + Edema and mild erythema to right 3rd distal digit with associated mallet toe deformity + Pain to palpation of distal right 3rd toe and with DIPJ ROM. Radiographs: 3 views AP, MO, Lat Right Foot were taken and evaluated (06/10/22). Radiographic evaluation: No obvious fracture or dislocation is noted. No acute osseous changes. No osteolytic or osteoblastic lesions appreciated. No soft tissue gas. No discernible mass noted. Joint spaces are well maintained. Bone density appear typical for age of patient. 3 views AP, MO, Lat Left Foot were taken and evaluated (06/10/22). Radiographic evaluation: Degenerative changes to the 3rd DIPJ with christiano-articular spurring of the base of the distal phalanx relative to the middle phalanx. No obvious fracture or dislocation is noted. No acute osseous changes. No osteolytic or osteoblastic lesions appreciated. No soft tissue gas. No discernible mass noted. Bone density appear typical for age of patient. 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 The patient was educated on clinical and radiographic findings, diagnosis and treatment plans. Patient state that he understands all that has been explained and all questions were answered to his apparent satisfaction. - Etiology and treatment options were discussed with the patient. - Complete prednisone taper as prescribed by PCP. - Rx topical voltaren (unable to take Mobic d/t being on Eliquis) - Briefly discussed mallet toe surgical correction. Will re-evaluate at next follow up. Follow up 4 weeks. Mitzi Cisneros DPM PGY-3 I personally saw and evaluated the patient. I reviewed the resident's note. I agree with the resident's assessment and plan unless otherwise noted. Lauri Lemus DPM, FACFAS documented in this encounter [facility] 06-07-2022 Telephone encounter Note Patient called asking about his monitor and if it was reading fine [facility] 06-07-2022 Miscellaneous Notes Patient called asking about his monitor and if it was reading fine I spoke to patient. He continues to feel well. I reviewed [employer] strips. Second degree heart block resolved off metoprolol. Mr Gonsalves continues to feel good. Patient can drive. He has follow up with me on 06/17/2021. mm Patient called wanting update. He advised he has no change in how he feels. [employer] website reviewed which shows Afib/flutter yesterday. No high degree AVB. Discussed patient with Dr. Moreno. PC to discuss recommendations. Patient states he is feeling well with no angina, SOB, palpitations, fatigue. Advised patient to continue to hold metoprolol. CHADS-VASC = 2 for age and HTN. Will stop ASA and start Eliquis 5 mg BID. Samples prepared for patient to picking tech today. Advised him not to drive for the next 2 weeks for now. We will touch base with him next week. Patient called in inquiring about how long he has to wear MCT and when he will have results. Patient also wondering how long he will have driving restrictions. documented in this encounter [facility] 06-04-2022 Miscellaneous Notes Summary: New Pt appt. I called PT to schedule New Pt appointment was referral from his PCP Doctor and I spoke with him he stated wanting to wait until he talks with his PCP doctor again. Nathalie Mtz documented in this encounter [facility] 06-01-2022 Telephone encounter Note I spoke to patient. He continues to feel well. I reviewed [employer] strips. Second degree heart block resolved off metoprolol. Mr Gonsalves continues to feel good. Patient can drive. He has follow up with me on 06/17/2021. mm [facility] 06-01-2022 Miscellaneous Notes I spoke to patient. He continues to feel well. I reviewed [employer] strips. Second degree heart block resolved off metoprolol. Mr Gonsalves continues to feel good. Patient can drive. He has follow up with me on 06/17/2021. mm Patient called wanting update. He advised he has no change in how he feels. [employer] website reviewed which shows Afib/flutter yesterday. No high degree AVB. Discussed patient with Dr. Moreno. PC to discuss recommendations. Patient states he is feeling well with no angina, SOB, palpitations, fatigue. Advised patient to continue to hold metoprolol. CHADS-VASC = 2 for age and HTN. Will stop ASA and start Eliquis 5 mg BID. Samples prepared for patient to picking tech today. Advised him not to drive for the next 2 weeks for now. We will touch base with him next week. Patient called in inquiring about how long he has to wear MCT and when he will have results. Patient also wondering how long he will have driving restrictions. documented in this encounter [facility] 06-01-2022 Telephone encounter Note Patient called wanting update. He advised he has no change in how he feels. [facility] 06-01-2022 Telephone encounter Note This encounter was created in error - please disregard. [facility] 06-01-2022 Miscellaneous Notes This encounter was created in error - please disregard. documented in this encounter [facility] 05-28-2022 Telephone encounter Note [employer] website reviewed which shows Afib/flutter yesterday. No high degree AVB. Discussed patient with Dr. Moreno. PC to discuss recommendations. Patient states he is feeling well with no angina, SOB, palpitations, fatigue. Advised patient to continue to hold metoprolol. CHADS-VASC = 2 for age and HTN. Will stop ASA and start Eliquis 5 mg BID. Samples prepared for patient to picking tech today. Advised him not to drive for the next 2 weeks for now. We will touch base with him next week. [facility] Work Phone: 05-28-2022 Telephone encounter Note Patient called in inquiring about how long he has to wear MCT and when he will have results. Patient also wondering how long he will have driving restrictions. [facility] 04-14-2021 Note HNO ID: [id number] Author: Anat Jean PA-C Service: ? Author Type: Physician [employer]airer Type: Progress Notes Filed: 04/14/2021 8:48 AM Note Text: CHIEF COMPLAINT: Patient presents with: Recheck: EGD 09/17/20 GERD, H Pylori HPI Venancio Gonsalves is a 65 year old male with PMHx positive for aortic stenosis, diverticulosis, GERD here today for Recheck (EGD 09/17/20 GERD, H Pylori). Seen last in GI office for GERD s/p EGD 09/17/2020. Obtained stool testing as no specimens were received which revealed that pt was H. Pylori positive 10/30/2020. Was treated with quadruple regimen which was unsuccessful w/ stool still positive 12/17/2020. Then was provided triple regimen and confirmed successful eradication w/ stool negative 03/04/2021. Has been feeling much better for the past month. Taking Protonix 40 mg daily currently with relief. BMs are one per day, normal consistency, no blood. OV 10/15/2020 Venancio Gonsalves is a 65 year old male here today for Procedure Follow Up (EGD 09/17/20 Belching, reflux, chest pain ). EGD 09/17/2020 fundic gland polyps, otherwise normal, no specimens. Feeling well since the procedure. Taking Protonix 40 mg BID with good control in symptoms. BMs are usually one per day, soft, no blood. Current Outpatient Medications Medication Sig - amLODIPine (NORVASC) 5 mg tablet - metoprolol succinate ER (TOPROL XL) 50 mg 24 hr tablet - pantoprazole DR (PROTONIX) 40 mg tablet TAKE 1 TABLET BY MOUTH TWICE A DAY BEFORE MEALS - atorvastatin (LIPITOR) 40 mg tablet Take 40 mg by mouth once daily. No current facility-administered medications for this visit. ALLERGIES Allergen Reactions - Sulfa (Sulfonamide * GI Upset Nausea. - Penicillins Rash Social History Tobacco Use - Smoking status: Never Smoker - Smokeless tobacco: Never Used Vaping Use - Vaping Use: Never used Substance Use Topics - Alcohol use: Yes Comment: occ. - Drug use: No PAST MEDICAL HISTORY Diagnosis Date - Aortic stenosis - Disc degeneration, lumbar - Diverticulosis - GERD (gastroesophageal reflux disease) - Skin cancer 2016 PAST SURGICAL HISTORY Procedure Laterality Date - COLONOSCOPY 12/15/2017 Diverticulosis - EGD 09/17/2020 Fundic gland polyps, otherwise normal FAMILY HISTORY Problem Relation Age of Onset - Colon Cancer No Family History REVIEW OF SYSTEMS Review of Systems All other systems reviewed and are negative. PHYSICAL EXAM BP 144/84 Pulse 61 Ht 5' 8 (1.73m) Wt 204 lb (92.5kg) BMI 31.03 kg/(m2). Physical Exam Constitutional: General: He is not in acute distress. Appearance: Normal appearance. He is normal weight. He is not ill-appearing, toxic-appearing or diaphoretic. HENT: Head: Normocephalic and atraumatic. Nose: Nose normal. Eyes: General: No scleral icterus. Right eye: No discharge. Left eye: No discharge. Extraocular Movements: Extraocular movements intact. Conjunctiva/sclera: Conjunctivae normal. Pupils: Pupils are equal, round, and reactive to light. Cardiovascular: Rate and Rhythm: Normal rate and regular rhythm. Pulses: Normal pulses. Heart sounds: Murmur heard. No friction rub. No gallop. Pulmonary: Effort: No respiratory distress. Breath sounds: Normal breath sounds. No stridor. No wheezing, rhonchi or rales. Chest: Chest wall: No tenderness. Abdominal: General: Abdomen is flat. Bowel sounds are normal. There is no distension. Palpations: Abdomen is soft. There is no mass. Tenderness: There is no abdominal tenderness. There is no right CVA tenderness, left CVA tenderness, guarding or rebound. Hernia: No hernia is present. Musculoskeletal: General: Normal range of motion. Cervical back: Normal range of motion and neck supple. Skin: General: Skin is warm and dry. Neurological: General: No focal deficit present. Mental Status: He is alert and oriented to person, place, and time. Psychiatric: Mood and Affect: Mood normal. Behavior: Behavior normal. Assessment/Plan (K21.9) Gastroesophageal reflux disease without esophagitis (primary encounter diagnosis) (Z86.19) History of Helicobacter pylori infection 1. Gastroesophageal reflux disease without esophagitis - Patient clinically doing well s/p H. Pylori triple treatment. Advised slowly weaning off of Protonix 40 mg. Take every other day, every two days until he is able to come off of PPI - He may start PPI daily again for any refractory symptoms - Follow anti-reflux precautions - Avoid NSAIDs 2. History of Helicobacter pylori infection Follow up in office 12 months/PRN. Recommended to please call office/go to ER if fever, chills, chest pain, SOB, diarrhea, nausea, emesis, worsening abdominal pain, dehydration occurs I spent 10 minutes in the visit, with more than 50% of the total [id number] time of the visit in counseling / coordination of care. I have confirmed and edited as necessary, the PFSH and ROS (more content not included)... [facility] 10-15-2020 Note HNO ID: [id number] Author: Anat Jean PA-C Service: ? Author Type: Physician [employer] Repairer Type: Progress Notes Filed: 10/15/2020 8:12 PM Note Text: HPI Venacnio Gonsalves is a 65 year old male here today for Procedure Follow Up (EGD 09/17/20 Belching, reflux, chest pain ). EGD 09/17/2020 fundic gland polyps, otherwise normal, no specimens. Feeling well since the procedure. Taking Protonix 40 mg BID with good control in symptoms. BMs are usually one per day, soft, no blood. OV 08/21/2020 Venancio Gonsalves is a 65 year old male who presents for Chest Pain (Reflux, Belching-was in [facility] in July ). Has had reflux, indigestion for the past month. Went to [facility] 08/08/2020 for chest pain/reflux. Had heart cath which showed moderate aortic stenosis, EKG. On aspirin daily. Was discharged with Protonix 40 mg BID which has been helping symptoms. Has never had EGD. Has intermittent epigastric pain. BMs are usually one per day, soft, no blood. Admits to recent constipation Denies N/V, weight loss, dysphagia. ? Colonoscopy 2018 diverticulosis. ? Denies smoking, illicit drugs, EtOH Record Review: [facility] records reviewed Current Outpatient Medications Medication Sig - amLODIPine (NORVASC) 10 mg tablet Take 10 mg by mouth once daily. - metoprolol succinate ER (TOPROL XL) 25 mg 24 hr tablet Take 25 mg by mouth once daily. - pantoprazole DR (PROTONIX) 40 mg tablet TAKE 1 TABLET BY MOUTH TWICE A DAY BEFORE MEALS - atorvastatin (LIPITOR) 40 mg tablet Take 40 mg by mouth once daily. - BABY ASPIRIN ORAL Take 81 mg by mouth. No current facility-administered medications for this visit. ALLERGIES Allergen Reactions - Sulfa (Sulfonamide * GI Upset Nausea. - Penicillins Rash Social History Tobacco Use - Smoking status: Never Smoker - Smokeless tobacco: Never Used Vaping Use - Vaping Use: Never used Substance Use Topics - Alcohol use: Yes Comment: occ. - Drug use: No PAST MEDICAL HISTORY Diagnosis Date - Aortic stenosis - Disc degeneration, lumbar - Diverticulosis - GERD (gastroesophageal reflux disease) - Skin cancer 2017 PAST SURGICAL HISTORY Procedure Laterality Date - COLONOSCOPY 12/15/2017 Diverticulosis - EGD 09/17/2020 Fundic gland polyps, otherwise normal FAMILY HISTORY Problem Relation Age of Onset - Colon Cancer No Family History REVIEW OF SYSTEMS Review of Systems Gastrointestinal: Heartburn All other systems reviewed and are negative. PHYSICAL EXAM BP 122/84 Pulse 67 Ht 172.7 cm (5' 8) Wt 88.5 kg (195 lb) BMI 29.65 kg/m? BMI 29.65 kg/(m2) Physical Exam Constitutional: General: He is not in acute distress. Appearance: He is not diaphoretic. HENT: Head: Normocephalic and atraumatic. Eyes: Conjunctiva/sclera: Conjunctivae normal. Pupils: Pupils are equal, round, and reactive to light. Cardiovascular: Rate and Rhythm: Normal rate and regular rhythm. Heart sounds: Normal heart sounds. No murmur heard. No friction rub. No gallop. Pulmonary: Effort: Pulmonary effort is normal. No respiratory distress. Breath sounds: Normal breath sounds. No wheezing or rales. Chest: Chest wall: No tenderness. Abdominal: General: Bowel sounds are normal. There is no distension. Palpations: Abdomen is soft. There is no mass. Tenderness: There is no abdominal tenderness. There is no guarding or rebound. Musculoskeletal: General: Normal range of motion. Cervical back: Normal range of motion and neck supple. Skin: General: Skin is warm and dry. Neurological: Mental Status: He is alert and oriented to person, place, and time. Psychiatric: Mood and Affect: Mood and affect normal. Assessment/Plan (K21.9) Gastroesophageal reflux disease, unspecified whether esophagitis present (primary encounter diagnosis) 1. Gastroesophageal reflux disease, unspecified whether esophagitis present - H PYLORI AG BY EIA,STOOL; Future - Recommended obtaining H. Pylori stool testing as no biopsies were obtained from endoscopy. - Continue anti-reflux precautions - Continue Protonix 40 mg BID for next 8-12 weeks then instructed to - Discussed possible esophageal manometry which patient and would like to wait on receiving current as symptoms have improved with medications - Consider manometry with impedance testing next OV if still requiring high dose Protonix to control symptoms Recommended to please call office/go to ER if fever, chills, chest pain, SOB, diarrhea, nausea, emesis, worsening abdominal pain, dehydration occurs I spent 15 minutes in the visit, with more than 50% of the total [id number] time of the visit in counseling / coordination of care. I have confirmed and edited as necessary, the PFSH and ROS obtained by others. Anat Jean PA-C October 15, 2020 4:11 PM [facility] 08-21-2020 Note HNO ID: [id number] Author: Anat Jean (Pa) Service: ? Author Type: Physician [employer] Repairer Type: Progress Notes Filed: 08/21/2020 4:19 PM Note Text: HPI: Venancio Gonsalves is a 65 year old male who presents for Chest Pain (Reflux, Belching-was in [facility] in July ). Has had reflux, indigestion for the past month. Went to [facility] 08/08/2020 for chest pain/reflux. Had heart cath which showed moderate aortic stenosis, EKG. On aspirin daily. Was discharged with Protonix 40 mg BID which has been helping symptoms. Has never had EGD. Has intermittent epigastric pain. BMs are usually one per day, soft, no blood. Admits to recent constipation Denies N/V, weight loss, dysphagia. Colonoscopy 2018 diverticulosis. Denies smoking, illicit drugs, EtOH Record Review: [facility] records reviewed PAST MEDICAL HISTORY Diagnosis Date - Aortic stenosis - Disc degeneration, lumbar - Diverticulosis - GERD (gastroesophageal reflux disease) - Skin cancer 2017 PAST SURGICAL HISTORY Procedure Laterality Date - COLONOSCOPY 12/15/2017 Diverticulosis Allergies: ALLERGIES Allergen Reactions - Sulfa (Sulfonamide * GI Upset Nausea. - Penicillins Rash Medications: amLODIPine (NORVASC) 10 mg tablet Take 10 mg by mouth once daily. metoprolol succinate ER (TOPROL XL) 25 mg 24 hr tablet Take 25 mg by mouth once daily. pantoprazole DR (PROTONIX) 40 mg tablet TAKE 1 TABLET BY MOUTH TWICE A DAY BEFORE MEALS atorvastatin (LIPITOR) 40 mg tablet Take 40 mg by mouth once daily. BABY ASPIRIN ORAL Take 81 mg by mouth. gabapentin (NEURONTIN) 300 mg capsule TAKE 1 CAPSULE BY MOUTH EVERY DAY AT NIGHT FAMILY HISTORY Problem Relation Age of Onset - Colon Cancer No Family History Employer And Job Title: None on file Years Of Education Completed: Not specified Marital Status: Social History Tobacco Use - Smoking status: Never Smoker - Smokeless tobacco: Never Used Vaping Use - Vaping Use: Never used Substance Use Topics - Alcohol use: Yes Comment: occ. - Drug use: No Review of Systems: Review of Systems Constitutional: Positive for appetite change and unexpected weight change. Cardiovascular: Positive for chest pain. Gastrointestinal: Change in Bowel Habits, Gas, Heartburn All other systems reviewed and are negative. Where do you currently reside? Independently Are you taking any blood thinners? No Physical Examination: BP 136/74 Pulse 69 Ht 172.7 cm (5' 8) Wt 87.5 kg (193 lb) BMI 29.35 kg/m? Physical Exam Constitutional: General: He is not in acute distress. Appearance: He is not diaphoretic. HENT: Head: Normocephalic and atraumatic. Eyes: Conjunctiva/sclera: Conjunctivae normal. Pupils: Pupils are equal, round, and reactive to light. Cardiovascular: Rate and Rhythm: Normal rate and regular rhythm. Heart sounds: Murmur heard. No friction rub. No gallop. Pulmonary: Effort: Pulmonary effort is normal. No respiratory distress. Breath sounds: Normal breath sounds. No wheezing or rales. Chest: Chest wall: No tenderness. Abdominal: General: Bowel sounds are normal. There is no distension. Palpations: Abdomen is soft. There is no mass. Tenderness: There is no abdominal tenderness. There is no guarding or rebound. Musculoskeletal: General: Normal range of motion. Cervical back: Normal range of motion and neck supple. Skin: General: Skin is warm and dry. Neurological: Mental Status: He is alert and oriented to person, place, and time. Psychiatric: Mood and Affect: Mood and affect normal. Assessment/Plan (K21.9) Gastroesophageal reflux disease, unspecified whether esophagitis present (primary encounter diagnosis) 1. Gastroesophageal reflux disease, unspecified whether esophagitis present - Discussed reflux precautions in detail and provided printed handout. - Continue Protonix 40 mg BID - Patient had recent cardiac cath, will discuss with office to try to see if patient have have EGD at [facility] if cleared by [facility] for procedure. Recommend high protein, high fiber diet. Promotion of salivation through oral lozenges/chewing gum Drink plenty of water Avoid NSAIDs (such as Advil, Ibuprofen, Excedrin, Mobic), tobacco, alcohol, carbonated beverages, caffeine, chocolate, tomato based sauces, spicy/fatty foods, and peppermint Avoid eating less than 3 hours before bed. Elevate the head of the bed 6 inches, or invest in a wedge pillow. Laying on left side with head elevated may help alleviate reflux symptoms. Recommended to please call office/go to ER if fever, chills, chest pain, SOB, diarrhea, nausea, emesis, worsening abdominal pain, dehydration occurs I spent 20 minutes in the visit, with more than 50% of the total [id number] time of the visit in counseling / coordination of care. I have confirmed and edited as necessary, the PFSH and ROS obtained by others. Anat Jean PA-C August 21, 2020 2:58 PM [facility] Evaluation note Diagnosis Nonrheumatic aortic valve stenosis Aortic valve disorders documented in this encounter [facility] Work Phone: Evaluation note* Diagnosis Pain in left foot- Primary Pain in limb Pain in toe of left foot Pain in limb Pain in toe of right foot Pain in limb Acute gout involving toe, unspecified cause, unspecified laterality [facility] Diagnosis Pain in left foot- Primary Pain in limb Pain in toe of left foot Pain in limb Pain in toe of right foot Pain in limb Acute gout involving toe, unspecified cause, unspecified laterality [facility] Diagnosis Sleep disorder, unspecified- [facility] Essential (primary) hypertension Unspecified essential hypertension Elevated BP without diagnosis of hypertension [facility] Diagnosis Obstructive sleep apnea Obstructive sleep apnea (adult) (pediatric) [facility] Diagnosis Obstructive sleep apnea- Primary Obstructive sleep apnea (adult) (pediatric) [facility] Diagnosis S/P TAVR (transcatheter aortic valve replacement) [facility] Diagnosis Paroxysmal atrial fibrillation (HCC)- Primary Atrial fibrillation Severe aortic stenosis Aortic valve disorders Hyperlipidemia, unspecified hyperlipidemia type Primary hypertension Unspecified essential hypertension [facility] Diagnosis Obstructive sleep apnea- Primary Obstructive sleep apnea (adult) (pediatric) Nasal congestion Other diseases of nasal cavity and sinuses [facility] Diagnosis Nasal congestion Other diseases of nasal cavity and sinuses [facility] Diagnosis Nasal congestion Other diseases of nasal cavity and sinuses [facility]* Diagnosis Nonrheumatic aortic (valve) stenosis- Primary Hyperlipidemia, unspecified [facility] Diagnosis Paroxysmal atrial fibrillation (HCC) Atrial fibrillation documented [facility]* Diagnosis Obstructive sleep apnea- Primary Obstructive sleep apnea (adult) (pediatric) Chronic nasal congestion Other diseases of nasal cavity and sinuses documented [facility]* Diagnosis Essential (primary) hypertension Unspecified essential hypertension documented [facility]* Diagnosis Elevated BP without diagnosis of hypertension [facility] Diagnosis Other hyperlipidemia [facility]* Diagnosis Obstructive sleep apnea Obstructive sleep apnea (adult) (pediatric) [facility]* Diagnosis Sleep disorder, unspecified documented in [facility]* Diagnosis Sleep disorder Unspecified sleep disturbance [facility]* Diagnosis Severe aortic stenosis- Primary Aortic valve disorders Primary hypertension Unspecified essential hypertension Other hyperlipidemia Severe aortic stenosis- Primary Aortic valve disorders Primary hypertension Unspecified essential hypertension Other hyperlipidemia 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 Primary hypertension- Primary Unspecified essential hypertension 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 Severe aortic stenosis Aortic valve disorders Paroxysmal atrial fibrillation (HCC) Atrial fibrillation Snoring Other dyspnea and respiratory abnormality S/P TAVR (transcatheter aortic valve replacement)- Primary Primary hypertension Unspecified essential hypertension Other hyperlipidemia [facility] Diagnosis ERRONEOUS ENCOUNTER--DISREGARD- Primary [facility]* Diagnosis Primary hypertension- Primary Unspecified essential hypertension 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 Severe aortic stenosis Aortic valve disorders Paroxysmal atrial fibrillation (CMS/HCC) (HCC) Atrial fibrillation Snoring Other dyspnea and respiratory abnormality [facility]* Diagnosis Nonrheumatic aortic (valve) stenosis [facility]* Diagnosis Paroxysmal atrial fibrillation (CMS/HCC) (HCC) Atrial fibrillation [facility]* Diagnosis Severe aortic stenosis Aortic valve disorders [facility]* Diagnosis Nonrheumatic aortic (valve) stenosis- Primary [facility]* Diagnosis Essential (primary) hypertension Unspecified essential hypertension documented [facility]* Diagnosis Elevated BP without diagnosis of hypertension [facility]* Diagnosis Sleep disorder- Primary Unspecified sleep disturbance [facility]* Diagnosis Severe aortic stenosis- Primary Aortic valve disorders Primary hypertension Unspecified essential hypertension Other hyperlipidemia Severe aortic stenosis- Primary Aortic valve disorders Primary hypertension Unspecified essential hypertension Other hyperlipidemia 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 Primary hypertension- Primary Unspecified essential hypertension 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 Severe aortic stenosis Aortic valve disorders Paroxysmal atrial fibrillation (HCC) Atrial fibrillation Snoring Other dyspnea and respiratory abnormality Elevated BP without diagnosis of hypertension documented in this encounter [facility] note* Diagnosis Pain in left foot- Primary Pain in limb [facility] Diagnosis Severe aortic stenosis- Primary Aortic valve disorders Primary hypertension Unspecified essential hypertension Other hyperlipidemia Severe aortic stenosis- Primary Aortic valve disorders Primary hypertension Unspecified essential hypertension Other hyperlipidemia 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 Primary hypertension- Primary Unspecified essential hypertension 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 Severe aortic stenosis Aortic valve disorders Paroxysmal atrial fibrillation (HCC) Atrial fibrillation Snoring Other dyspnea and respiratory abnormality Paroxysmal atrial fibrillation (HCC) Atrial fibrillation documented in this encounter [facility] note* Diagnosis Severe aortic stenosis- Primary Aortic valve disorders Primary hypertension Unspecified essential hypertension Other hyperlipidemia Severe aortic stenosis- Primary Aortic valve disorders Primary hypertension Unspecified essential hypertension Other hyperlipidemia 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 Primary hypertension- Primary Unspecified essential hypertension 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 Severe aortic stenosis Aortic valve disorders Paroxysmal atrial fibrillation (HCC) Atrial fibrillation Snoring Other dyspnea and respiratory abnormality Obstructive sleep apnea- Primary Obstructive sleep apnea (adult) (pediatric) Chronic nasal congestion Other diseases of nasal cavity and sinuses documented in this encounter [facility] note* Diagnosis Severe aortic stenosis- Primary Aortic valve disorders Primary hypertension Unspecified essential hypertension Other hyperlipidemia Severe aortic stenosis- Primary Aortic valve disorders Primary hypertension Unspecified essential hypertension Other hyperlipidemia 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 Primary hypertension- Primary Unspecified essential hypertension 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 Severe aortic stenosis Aortic valve disorders Paroxysmal atrial fibrillation (HCC) Atrial fibrillation Snoring Other dyspnea and respiratory abnormality Essential (primary) hypertension Unspecified essential hypertension documented in this encounter [facility] for referral (narrative)* Diagnostic Procedure Only (Routine) - Pending Review Specialty Diagnoses / Procedures Referred By Ivelisse iraheta Referred To Contact XR IMAGING Diagnoses Pain in left foot Pain in toe of left foot Procedures XR FOOT GENERAL 3V AP/LAT/OBL LEFT RADEX FOOT COMPLETE MINIMUM 3 VIEWS Lauri Lemus DPM [address] [address] Xr Imaging Referral ID Status Reason Start Date Expiration Date Visits Requested Visits Authorized [id number] Pending Review Auto-Generat ed Referral 06/10/2022 07/10/2023 1 1 * Diagnostic Procedure Only (Routine) - Pending Review Specialty Diagnoses / Procedures Referred By Contac t Referred To Contact XR IMAGING Diagnoses Pain in toe of right foot Procedures XR FOOT GENERAL 3V AP/LAT/OBL RIGHT RADEX FOOT COMPLETE MINIMUM 3 VIEWS Lauri Lemus DPM [address] [place] [address] Xr Imaging Referral ID Status Reason Start Date Expiration Date Visits Requested Visits Authorized [id number] Pending Review Auto-Generat ed Referral 06/10/2022 07/10/2023 1 1 [facility] for referral (narrative)* Consultation (Routine) - Pending Review Specialty Diagnoses / Procedures Referred By Contac t Referred To Contact Otolaryngology Diagnoses Chronic nasal congestion Procedures NM OFFICE/OUTPATIENT NEW HIGH MDM 60 MINUTES Alma Delia Dale MD [address] [place] [address] Neftali Vences, DO [address] [facility] [address] [place] [address] Referral ID Status Reason Start Date Expiration Date Visits Requested Visits Authorized [id number] Pending Review Specialty Services Required 10/13/2023 10/12/2024 1 1 [facility] Discharge Instructions * Instructions* Lulu Jordan MD - 05/05/2019 Return immediately for headache vomiting vision change numbness weakness slurred speech loss of bowel bladder control numbness or weakness in the lower extremities numbness around the buttocks changein or worsening symptoms. Use heat or cold 20 minutes daily several times a day. Follow-up with PCP in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
[2025-04-28 09:16] VITALS: BP 172/78; PULSE 69; RESP 16; TEMP 36.1; O2SAT 100
== END 2025-04-28 09:17 | disposition home or self-care (01) ==
LOC: ED 09:02
PROVIDERS: Emergency Provider Emergency Medicine; PCP Family Medicine; Visit Provider Emergency Medicine
DX: M10.9 Gout, unspecified (principal); M79.671 Pain in right foot; I10 Essential (primary) hypertension; Z79.01 Long term (current) use of anticoagulants; Z95.2 Presence of prosthetic heart valve
CPT/HCPCS: 99282

== ENCOUNTER → 2025-05-21 | Outpatient (CLI) | payer MEDICARE, OTHER, SELFPAY ==
[2025-05-21 13:02] LABS: PSA,Total - Annual Screen 0.60 ng/mL (0.02-4.00); Uric Acid 8.1 mg/dL (3.5-7.2)
== END | disposition home or self-care (01) ==
LOC: BFHLAB 09:10
PROVIDERS: PCP Family Medicine; Visit Provider Family Medicine
DX: M10.9 Gout, unspecified (principal); Z12.5 Encounter for screening for malignant neoplasm of prostate
CPT/HCPCS: 36415; 84153; 84550; G0103